=== PATIENT | male | born 1980 | race Caucasian/White ===

== ENCOUNTER 2022-03-03 17:22 | Inpatient (IN) | payer OTHER, SELFPAY ==
[2022-03-03 17:00] VITALS: BP 141/95; PULSE 87; RESP 18; TEMP 37.1; O2SAT 96; BMI 37.3
--- NOTE | 2022-03-03 17:11 | PCM.HP.STD ---
HPI - General General Date of Admission: 03/03/22 Date of Service: 03/03/22 Chief Complaint: Abdominal pain. HPI Narrative The patient is a 42 y/o M w/ PMHx: HTN, HLD, Hx NSTEMI w/ angiographically clean catheterization 06/24/2019 w/ normal EF on ECHO also, Morbid obesity, KAITLIN who presents to the [facility] as direction admission from [facility] ED 03/03/22 with history of onset on day of presentation, started in the AM after going to work, felt fine prior to this, was at work 1-2 hours, and came on over a short period of time, located in the left chest discomfort initially, left lateral with on examination upper epigastric region abdominal pain as well with no associated nausea, emesis, diarrhea. Pain was initially severe, rated constant aching and sharp 6-7/10 with occasional increase to 8 with stabbing, improved with some pain medications. Patient does report that approximately 1 month prior to current presentation and acute work-up he did have a similar episode of epigastric discomfort with nausea, emesis and diarrhea at that time but falling specifically rest and bowel decreased oral intake he seemed to improve but it did take him several days and this is similar but more severe. Discussed symptoms of biliary colic which she denied having over the last several weeks to months. He does report that he has had a weight loss over the last year. Work-up in the OSH ED included VS: T 97, HR 83, RR 16, BP 139/93, 96-97% on RA, 03/03/22 CTPA with no evidence of pulmonary emboli with enlargement the pancreas with peripancreatic fat stranding consistent with acute pancreatitis, high-sensitivity troponin less than 4 with repeat delta troponin also less than 4, high-sensitivity BNP 10, CRP 0.20, CBC with WC 7.5, hemoglobin 16.7, platelets 351 without marked shift, lipase level too elevated to reported and deferred at the OSH ED as sendout lab. The CMP was unable to be ran also secondary to the lipase level. OSH Medications: Morphine 5 mg initially, Zofran 4 mg IV, Protonix 40 mg IV x 1, Dilaudid 2 mg total, 1.5L NS. [facility] Medical History (Updated 03/03/22 @ 17:[address] Yaa Sabillon MD) Essential hypertension Former tobacco use History of non-ST elevation myocardial infarction (NSTEMI) (06/25/19) HLD (hyperlipidemia) Morbid obesity Obstructive sleep apnea Home Medications testosterone 100 mg implant pellet 100 mg subcut ONCE 11/03/20 [History Last Taken Unknown] atorvastatin 10 mg tablet 10 mg PO QHS cholesterol 03/03/22 [History Last Taken 03/02/22 2200] folic acid 1 mg tablet 1 mg PO DAILY 03/03/22 [History Last Taken Unknown] metoprolol succinate 25 mg tablet,extended release 24 hr (Toprol XL) 25 mg PO QHS heart rate 03/03/22 [History Last Taken Unknown] Allergy/AdvReac Type Severity Reaction Status Date / Time No Known Allergies Allergy Unverified 10/27/21 08:57 Family History (Updated 03/03/22 @ 17:[address] Yaa Sabillon MD) Father Heart disease Hypertension Mother Hypertension Surgical History (Updated 03/03/22 @ 17:[address] Yaa Sabillon MD) History of left heart catheterization (06/26/19) No significant past surgical history Social History (Updated 03/03/22 @ 17:[address] Yaa Sabillon MD) household members: other details: Spouse and children x 3. current occupational status: employed Smoking Status: Former smoker how long ago did patient quit smoking: Smoked age [age], weekend social only. alcohol intake: current alcohol intake frequency: a few times a month details: He notes heavier intake in the past in youth. Denies abuse currently. substance use type: does not use ROS ROS Narrative Admission Review of Systems: CONSTITUTIONAL: No weight loss, fever, chills, + weakness or fatigue. HEENT: Eyes: No visual loss, blurred vision, double vision or yellow sclerae. Ears, Nose, Throat: No hearing loss, sneezing, congestion, runny nose or sore throat. SKIN: No rash or itching, lesions, wounds. CARDIOVASCULAR: + chest pain, chest pressure or chest discomfort, No palpitations, edema, orthopnea, syncopal events. RESPIRATORY: No shortness of breath, cough or sputum, wheezing, hemoptysis. GASTROINTESTINAL: + anorexia, abdominal pain, No nausea, vomiting, diarrhea, melena, BRBPR. GENITOURINARY: No dysuria, frequency, urgency or retention. NEUROLOGICAL: No headache, dizziness, syncope, paralysis, ataxia, numbness or tingling in the extremities, focal weakness, change in bowel or bladder control, seizure. MUSCULOSKELETAL: No muscle, back pain, joint pain or stiffness. HEMATOLOGIC: No anemia, bleeding or bruising. LYMPHATICS: No enlarged nodes. No history of splenectomy. PSYCHIATRIC: No history of depression or anxiety. ENDOCRINOLOGIC: No reports of sweating, cold or heat intolerance. No polyuria or polydipsia. ALLERGIES: No history of asthma, hives, eczema or rhinitis. Vital Signs Vital Signs Vital Signs: 03/03/22 17:00 Temperature 98.7 F Temperature Source Temporal Pulse Rate 87 Respiratory Rate 18 Blood Pressure 141/95 H Blood Pressure Mean 110 Blood Pressure Source Monitor Blood Pressure Position Semi-Fowlers Blood Pressure Location Right Arm Pulse Ox 96 Oxygen Delivery Method Room Air Physical Exam Narrative Physical Examination: General: Awake, alert, oriented x 3 and cooperative, seated upright in MS bed, fatigued otherwise no acute distress, notes pain currently 1-2/10 after recent dilaudid at OSH ED. Skin: Normal color, normal turgor, no icterus, no cyanosis. HEENT: AT/NC, EOMI, PERRLA, mildly dry MM, no carotid bruits or JVD noted. Lungs: CTA bilaterally, moderate effort, mild decrease BL bases, no rales, ronchi or wheezing. Heart: Currently regular rate and rhythm; no gallop, rub audible. Abdomen: Soft, obese, tender to palpation as expected in the epigastric region with additionally notable RUQ pain, + rebound noted, distant mildly hyperative bowel sounds, no obvious HSM however evaluation difficult given pain with evaluation. Extremities: No cyanosis, clubbing, or edema. Neurological: Patient awake, alert, oriented x 3, cognitive function intact; pupils equally reactive to light and accommodation, cranial nerves II-XII grossly normal, moving all 4 extremities, no focal deficits, strength mildly to moderately global decrease secondary to acute presentation. Psychiatric: Affect appears fatigued, no acute evidence of depressive or anxiety feelings. Assessment & Plan Assessment/Plan (1) Acute pancreatitis: PLAN: Plan The patient is a 42 y/o M w/ PMHx: Former tobacco use, HTN, HLD, Hx NSTEMI w/ angiographically clean catheterization 06/24/2019 w/ normal EF on ECHO also, Morbid obesity, KAITLIN who presents to the [facility] as direction admission from [facility] ED 03/03/22 with history of onset on day of presentation, started in the AM after going to work, felt fine prior to this, was at work 1-2 hours, and came on over a short period of time, located in the left chest discomfort initially, left lateral with on examination upper epigastric region abdominal pain as well with no associated nausea, emesis, diarrhea during this recent episode. #1. Acute pancreatitis w/ abdominal pain, N/V: Will admit to medical surgical floor as a direct admission, will obtain CMP and lipase upon current presentation as for some reason at outside facility they were not able to obtain, maintain on IVFs, NPO, PPI, IV/po pain control, trend lipase, CMP, requested RUQ US as well as FLP, denies ETOH abuse which was discussed openly. Given RUQ pain on evaluation concern for GB etiology. If GBUS concerning will request Surgery involvement. #2. History NSTEMI: Patient with 06/24/2019 presentation and admission for chest pain with elevated troponins at that time with angiographically normal cardiac catheterization and unremarkable echocardiogram. We will continue aspirin, statin, metoprolol, Lotrel unless CMP for some reason preclude usage of these regimens. #3. Hypertension: Continue home regimen including metoprolol, Lotrel with hold parameters as needed, PRN hydralazine. #4. Hyperlipidemia: We will continue patient home statin therapy. FLP in AM. #5. Morbid Obesity: Weight loss and lifestyle changes encouraged, nutrition consulted. #6. KAITLIN: CPAP q HS. #7. DVT prophylaxis: SCDs, Lovenox. Charges/Coding Visit Charges Inpatient E&M: 03081 Init Hosp L3
--- NOTE | 2022-03-03 17:19 | US_ITS ---
STUDY: ABDOMINAL ULTRASOUND - RIGHT UPPER QUADRANT REASON FOR VISIT: Male, 42 years old Acute pancreatitis, RUQ pain TECHNIQUE: Ultrasound evaluation of the right upper quadrant was performed with real-time and static gay-scale imaging. TECHNICAL QUALITY: Adequate. Pancreas partially obscured by bowel gas. COMPARISON: None. FINDINGS: Liver: The liver measures 21.3 cm. There is increased echogenicity of the liver. The bile ducts are within normal limits. There is hepatic color flow. The direction of portal flow is hepatopetal. There is no demonstrated mass lesion. Gallbladder: Mildly distended measuring 10.1 cm in length The gallbladder wall measures 1.4 mm. There is a negative sonographic Hagan''s sign. There is no pericholecystic fluid. There are no gallstones. Common Bile Duct (C.B.D.): The common bile duct measures 5.4 mm. Pancreas: Not well seen due to bowel gas. The visualized pancreatic head is hypoechoic and mildly heterogeneous, consistent with the clinical history of pancreatitis. No pancreatic ductal dilatation or pancreatic fluid collection identified. Right Kidney: Mildly enlarged right kidney. The right kidney measures 14.1 cm. Normal renal cortexThere is no demonstrated renal mass or cyst. There is no right hydronephrosis. OTHER: No ascites. US/Gallbladder IMPRESSION: Enlarged fatty liver. The visualized pancreatic head shows findings of acute pancreatitis. Mildly distended gallbladder. No gallstones, findings of acute cholecystitis or biliary ductal dilatation. Electronically Signed: Roberto Eaton MD at 4:30 EDT ,
[2022-03-03] MEDS: 0.9% Normal Saline 1,000 ML 999 ML IV (17:38)
[2022-03-03] MEDS: 0.9% Normal Saline 1,000 ML 200 ML IV ×2 (17:44→23:10)
[2022-03-03] MEDS: Ondansetron 4 MG/2 ML Vial IV (17:47)
[2022-03-03] MEDS: Morphine 4 MG/ML Syringe IV ×2 (17:47→23:10)
[2022-03-03] MEDS: Famotidine 200 MG/20 ML MDV 20 MG in 0.9% Normal Saline (Pres. free 8 ML 300 MG IV (18:35)
[2022-03-03 18:55] LABS: AST(SGOT) 6 U/L (15-37); Alanine Aminotransfer ALT/SGPT 45 U/L (16-61); Albumin, Serum 3.5 g/dL (3.2-5.0); Alkaline Phosphatase 116 U/L (45-117); Anion Gap 9 (5-15); BUN 10 mg/dL (7-18); BUN/Creat Ratio 14.2 RATIO (10-20); Calcium,Total 8.5 mg/dL (8.5-10.1); Chloride 102 mmol/L (98-107); Creatinine, Serum 0.71 mg/dL (0.70-1.30); EST Glomerular Filtration Rate 131 mL/min (>60); Est Glom Filt Rate - Afr Amer 159 mL/min (>60); Globulin 3.6 g/dL (2.2-4.2); Glucose 237 mg/dL (74-106); Lipase 1448 U/L (73-393); Potassium 3.5 mmol/L (3.5-5.1); Protein, Total 7.1 g/dL (6.4-8.2); Sodium Level 134 mmol/L (136-145)
[2022-03-03 21:30] VITALS: BP 128/75; PULSE 81; RESP 18; TEMP 37; O2SAT 95
[2022-03-03 22:38] VITALS: PULSE 84; RESP 12; O2SAT 95
[2022-03-03] MEDS: proCHLORPERazine 10 MG/2 ML Vial 5 MG IV (23:15)
[2022-03-04] VITALS (8 sets, daily range): BP systolic 117–135; BP diastolic 66–90; PULSE 78–85; RESP 12–18; TEMP 36.6–37.3; O2SAT 94–97
[2022-03-04] MEDS: 0.9% Normal Saline 1,000 ML 200 ML IV ×4 (04:15→21:41)
[2022-03-04] MEDS: oxyCODONE 5 MG Tablet PO (04:15)
[2022-03-04] MEDS: Acetaminophen 325 MG Tablet 650 MG PO ×2 (04:15→15:48)
[2022-03-04 05:56] LABS: Absolute Lymphocyte Count 1.34 X10^3/uL (0.83-4.51); Absolute Neutrophil Count 6.9 X10^3/uL (2.0-7.7); Basophil# 0.02 X10^3/uL; Basophil% 0.2 % (0-1); Eosinophils% 1.1 % (0-5); Hematocrit 42.2 % (40-54); Hemoglobin 14.5 g/dL (13.0-16.5); Lymphocyte # 1.34 X10^3/ul (0.83-4.51); Lymphocyte % 14.9 % (19-41); Mean Corp Hgb Conc 34.4 g/dL (32-36); Mean Corpuscular Hgb 30.1 pg (27.0-32.0); Mean Corpuscular Volume 87.6 fL (80-94); Mean Platelet Vol. 9.7 fl (6.2-12.0); Monocyte# 0.62 X10^3/uL; Monocyte% 6.9 % (0-10); NRBC Flagged by Analyzer 0 % (0-5); Neutrophil # 6.85 X10^3/uL (2.7-7.7); Neutrophil % 76.3 % (47-70); Platelet Count 254 K/mm3 (150-450); RBC Distribution Width CV 13.1 % (11.6-14.6); RBC Distribution Width SD 41.8 fl (35.1-43.9); Red Blood Count 4.82 M/mm3 (4.6-6.2)
[2022-03-04 06:43] LABS: ALB/GLOB Ratio 0.9 RATIO (0.9-2.4); AST(SGOT) 11 U/L (15-37); Alanine Aminotransfer ALT/SGPT 32 U/L (16-61); Albumin, Serum 3.1 g/dL (3.2-5.0); Alkaline Phosphatase 103 U/L (45-117); Anion Gap 9 (5-15); BUN 9 mg/dL (7-18); BUN/Creat Ratio 13.4 RATIO (10-20); Calcium,Total 8.1 mg/dL (8.5-10.1); Chloride 103 mmol/L (98-107); Creatinine, Serum 0.67 mg/dL (0.70-1.30); EST Glomerular Filtration Rate 139 mL/min (>60); Est Glom Filt Rate - Afr Amer 168 mL/min (>60); Globulin 3.5 g/dL (2.2-4.2); Glucose 234 mg/dL (74-106); Lipase 1095 U/L (73-393); Potassium 3.8 mmol/L (3.5-5.1); Protein, Total 6.6 g/dL (6.4-8.2); Sodium Level 134 mmol/L (136-145)
[2022-03-04 07:48] LABS: Cholesterol 290 mg/dL (200); High Density Lipoprotein 37 mg/dL; Triglycerides 1497 mg/dL
[2022-03-04] MEDS: 0.9% Saline Lock 10 ML Syringe IV ×2 (10:04→21:42)
[2022-03-04] MEDS: Famotidine 200 MG/20 ML MDV 20 MG in 0.9% Normal Saline (Pres. free 8 ML 300 MG IV ×2 (10:04→21:43)
[2022-03-04] MEDS: Enoxaparin 40 MG/0.4 ML Syringe SC (10:07)
--- NOTE | 2022-03-04 11:11 | NURSING ---
Pt walking in chaidez with his .
--- NOTE | 2022-03-04 12:08 | CASEMGMT ---
TIMOTHY NAGY Assessment: Face to Face with pt for initial transition planning/care coordination assessment. RN LILO introduced self and role at [facility], pt voices understanding and consents to assessment. Pt is A/O x4 and answers all questions appropriately at this time. Pt lying in bed in no distress with dtr at bedside. Care providers, pharmacy, and demographics verified/updated. Admitting Dx: acute pancreatitis PCP:MYRIAM Mackey Specialists:fracisco Walker Pharmacy: [facility] Insurance: [employer] Prescription Benefit: yes LW/HPOA: Pt states he has a LW/DPOA and his DPOA is his Magda Lanier. He is aware this is not on file at [facility] and he may bring in to be scanned into his chart. LNOK: Magda Lanier, Living Arrangements: Pt lives with in a two story house with 8-10 steps to enter with a rail on both sides. Pt reports he is I in ADL's and denies concerns at home. Transportation: Pt drives self and denies concerns with transportation. DME/HHC/SNF: Pt has a CPAP at home, denies any further AD. Pt denies hx of HHC or SNF stays. Pt states no concerns with going home at time of dc. Pt was up ambulating independently in the halls. Pt states no further concerns/needs. CM to follow. Advised pt to ask CM if any further question/concerns/needs arise, voices understanding. Pt Goal: Home Plan: Home
--- NOTE | 2022-03-04 14:08 | PN.HOSP_ITS ---
Subjective Subjective Patient reports that his abdomen is still feeling better. Still requiring some IV morphine for pain however. Denies any excessive alcohol use, ultrasound is negative for any signs of gallbladder disease it would be potentiating this. We did review his medications and he is on testosterone. At the time of my dis cussion with him I was awaiting his lipids however I did discuss with him if his lipids are elevated the testosterone could be contributing to this. Objective Data Objective Data Vital Signs: Vital Signs Temp Pulse Resp BP Pulse Ox O2 Del Method FiO2 98.7 F 82 18 117/66 97 Room Air 21 03/04/22 11:28 03/04/22 11:28 03/04/22 11:28 03/04/22 11:28 03/04/22 11:28 03/04/22 11:03/04/22 02:07 Oxygen Delivery Method Room Air Weight: 131.9 kg Body Mass Index (BMI) 37.3 Intake & Output: Intake and Output for Last 24 Hours 03/02/22 03/03/22 03/04/22 23:59 23:59 23:59 Intake Total 3010 / 3010 2049 Output Total 300 / 300 Balance 2710 / 2710 2049 Lab / Micro Data Result Diagrams: 03/04/22 05:22 03/04/22 05:22 Labs: Laboratory Results - last 24 hr 03/03/22 18:03: Sodium 134 L, Potassium 3.5, Chloride 102, Carbon Dioxide 23.0, Anion Gap 9, BUN 10, Creatinine 0.71, Estim Creat Clear Calc 160.80, Est GFR (MDRD) Af Amer 159, Est GFR (MDRD) Non-Af 131, BUN/Creatinine Ratio 14.2, Glucose 237 H, Calcium 8.5, Total Bilirubin 0.50, AST 6 L, ALT 45, Alkaline Phosphatase 116, Total Protein 7.1, Albumin 3.5, Globulin 3.6, Albumin/Globulin Ratio 1.0, Lipase 1448 H 03/04/22 05:22: WBC 9.0, RBC 4.82, Hgb 14.5, Hct 42.2, MCV 87.6, MCH 30.1, MCHC 34.4, RDW Std Deviation 41.8, RDW Coeff of Bia 13.1, Plt Count 254, MPV 9.7, Immature Gran % (Auto) 0.600, Neut % (Auto) 76.3 H, Lymph % (Auto) 14.9 L, [place] % (Auto) 6.9, Eos % (Auto) 1.1, Baso % (Auto) 0.2, Absolute Neuts (auto) 6.9, Absolute Lymphs (auto) 1.34, Nucleated RBC % 0 03/04/22 05:22: Sodium 134 L, Potassium 3.8, Chloride 103, Carbon Dioxide 22.0, Anion Gap 9, BUN 9, Creatinine 0.67 L, Estim Creat Clear Calc 170.40, Est GFR (MDRD) Af Amer 168, Est GFR (MDRD) Non-Af 139, BUN/Creatinine Ratio 13.4, Glucose 234 H, Calcium 8.1 L, Total Bilirubin 0.60, AST 11 L, ALT 32, Alkaline Phosphatase 103, Total Protein 6.6, Albumin 3.1 L, Globulin 3.5, Albumin/Globulin Ratio 0.9, Lipase 1095 H 03/04/22 05:22: Triglycerides 1497 H, Cholesterol 290 H, LDL Cholesterol TNP, VLDL Cholesterol TNP, HDL Cholesterol 37 L Radiography Diagnostic Testing: Radiology Impression Gallbladder Ultrasound 03/03/22 17:19 IMPRESSION: Enlarged fatty liver. The visualized pancreatic head shows findings of acute pancreatitis. Mildly distended gallbladder. No gallstones, findings of acute cholecystitis or biliary ductal dilatation. Electronically Signed: Roberto Eaton MD at 4:30 EDT , Physical Exam Const alert, oriented x3, no apparent distress and well nourished Constitutional Narrative: Obese, middle-aged, white male sitting up in bed, at bedside, patient appears comfortable at this time, nontoxic HEENT head/scalp atraumatic and moist oral mucous membranes HEENT Narrative: Mallampati 3, no thrush Resp normal respiratory effort, no retractions, no use of accessory muscles and clear to auscultation bilaterally Auscultation: Negative for crackles, rales, rhonchi or wheezes Cardio regular rate, regular rhythm, S1 normal heart sound, S2 normal heart sound, no murmurs, no rub, no gallops, no clicks and no JVD GI normal to inspection, nondistended, normoactive bowel sounds and soft to pal pation GI Narrative: Mild tenderness in the right upper quadrant/epigastrium/left upper quadrant Extremity no clubbing, cyanosis or edema Neuro oriented x3, moves all extremities and no focal motor deficits Speech: speech normal Psych affect normal Assessment & Plan Assessment/Plan (1) Acute pancreatitis: (2) Hypertriglyceridemia: PLAN: Plan Acute pancreatitis secondary to hypertriglyceridemia -Pancreatitis is overall mild and improving -No need for plasmapheresis or insulin drip for triglycerides as he is clinically improving without -Continue statin but increase dose to maximize 80 mg nightly -Start fenofibrate 145 mg daily -Hold testosterone and would recommend discontinuation upon discharge as I suspect this is causing lipid elevation -Start clear liquid diet -Continue IV pain medication as needed -If patient continues to clinically improve would recommend diet advancement and possible discharge in the next 24 hours -Patient denies excessive alcohol intake -Ultrasound does not show any significant gallbladder disease Hyperlipidemia/hypertriglyceridemia -Total cholesterol was 290 with an HDL of 37 and a triglyceride level of 1497 -Maximize statin dose to 80 mg nightly -Add fenofibrate 145 mg daily -We will need outpatient cholesterol check in 3 months -Would recommend outpatient liver functions to be performed in 1 to 2 weeks Hypertension -Continue home metoprolol Hepatic steatosis -Recommend management of comorbidities including cholesterol/weight loss/diet changes -Maximize therapy for hyperlipidemia and hypertriglyceridemia as noted above -Follow-up as an outpatient History of NSTEMI -Cardiac catheterization done in 2019 -It appears that it was not microvascular per documentation -Continue beta-aviva -cholesterol treatment as above -Was told by Her 04 in 2019 that he was able to stop aspirin 3 months following that appointment Obstructive sleep apnea -Continue home CPAP Obesity -BMI 37.3 -Recommend weight loss -Complicates treatment, prognosis, outcomes DVT prophylaxis -Lovenox -SCDs CODE STATUS Full code Charges/Coding Visit Charges Inpatient E&M: 39070 Subs Hosp L2
[2022-03-04] MEDS: Fenofibrate 145 MG Tablet PO (15:59)
[2022-03-04 17:22] LABS: Hemoglobin A1c 11.8 % (3.8-5.6)
--- NOTE | 2022-03-04 19:41 | CPS ---
patient brought in home cpap unit.
[2022-03-04] MEDS: Morphine 4 MG/ML Syringe IV (21:42)
[2022-03-04] MEDS: Atorvastatin Calcium 80 MG Tablet PO (21:48)
[2022-03-04] MEDS: Metoprolol(XL)Succ 25 MG Tablet PO (21:48)
[2022-03-04] MEDS: Insulin Lispro 100 UNIT/ML INSULN.PEN SC (21:52)
[2022-03-04 22:15] LABS: Bedside Glucose 199 mg/dL (74-106)
[2022-03-05] MEDS: 0.9% Normal Saline 1,000 ML 200 ML IV ×2 (02:40→06:15)
[2022-03-05 04:25] VITALS: BP 113/75; PULSE 89; RESP 18; TEMP 36.6; O2SAT 96
[2022-03-05] MEDS: Insulin Lispro 100 UNIT/ML INSULN.PEN SC ×2 (06:15→11:30)
--- NOTE | 2022-03-05 06:33 | PCM.PN.HOSP ---
Objective Data Objective Data Vital Signs: Vital Signs Temp Pulse Resp BP Pulse Ox O2 Del Method FiO2 97.9 F 89 18 113/75 96 Room Air 21 03/05/22 04:25 03/05/22 04:25 03/05/22 04:25 03/05/22 04:25 03/05/22 04:25 03/05/22 04:30 03/04/22 02:07 Oxygen Delivery Method Room Air Weight: 299 lb 6.204 oz Body Mass Index (BMI) 37.3 Intake & Output: Intake and Output for Last 24 Hours 03/03/22 03/04/22 03/05/22 23:59 23:59 23:59 Intake Total 3010 / 3010 4270 / 4270 1713.34 / 1713.34 Output Total 300 / 300 Balance 2710 / 2710 4270 / 4270 1713.34 / 1713.34 Lab / Micro Data Result Diagrams: 03/04/22 05:22 03/04/22 05:22 Labs: Laboratory Results - last 24 hr 03/04/22 05:22: Sodium 134 L, Potassium 3.8, Chloride 103, Carbon Dioxide 22.0, Anion Gap 9, BUN 9, Creatinine 0.67 L, Estim Creat Clear Calc 170.40, Est GFR (MDRD) Af Amer 168, Est GFR (MDRD) Non-Af 139, BUN/Creatinine Ratio 13.4, Glucose 234 H, Calcium 8.1 L, Total Bilirubin 0.60, AST 11 L, ALT 32, Alkaline Phosphatase 103, Total Protein 6.6, Albumin 3.1 L, Globulin 3.5, Albumin/Globulin Ratio 0.9, Lipase 1095 H 03/04/22 05:22: Triglycerides 1497 H, Cholesterol 290 H, LDL Cholesterol TNP, VLDL Cholesterol TNP, HDL Cholesterol 37 L 03/04/22 05:22: Hemoglobin A1c 11.8 H 03/04/22 21:46: POC Glucose 199 H Assessment & Plan Assessment/Plan (1) Acute pancreatitis: PLAN: Plan The patient is a 42 y/o M w/ PMHx: Former tobacco use, HTN, HLD, Hx NSTEMI w/ angiographically clean catheterization 06/24/2019 w/ normal EF on ECHO also, Morbid obesity, KAITLIN who presents to the [facility] as direction admission from [facility] ED 03/03/22 with history of onset on day of presentation, started in the AM after going to work, felt fine prior to this, was at work 1-2 hours, and came on over a short period of time, located in the left chest discomfort initially, left lateral with on examination upper epigastric region abdominal pain as well with no associated nausea, emesis, diarrhea during this recent episode. #1. Acute pancreatitis w/ abdominal pain, N/V: Admitted to [facility], presentation lipase 1448 and CMP sodium 134, glucose 237, unremarkable hepatic profile, as were not able to be obtained at ED. Treated with aggressive IVFs, initially NPO but with improvement transitioned to clears->fulls, maintained on famotidine, GBUS obtained as noted RUQ on initial evaluation with enlarged fatty liver with visualization of pancreatic head still demonstrating signs of acute pancreatitis, mildly distended gallbladder but no gallstones or any findings of acute cholecystitis or biliary ductal dilatation. 03/04/2020 2 AM FLP obtained with noted triglycerides 1497, total cholesterol 290, HDL 37 felt likely etiology for patient acute pancreatitis. Patient is on chronic testosterone therapy likely contributing to his underlying fatty liver disease which has been recommended to be discontinued. #2. Hyperlipidemia, uncontrolled with significant hypertriglyceridemia likely contributing to acute presentation #1: FLP as noted above, statin therapy increased to high-dose atorvastatin 80 mg daily in addition to fenofibrate 145 mg p.o. daily which will be continued at discharge with strong recommendation for continued diet lifestyle changes with FLP follow-up with PCP. Recommended strongly also for discontinuation of testosterone therapy is likely contributing. #3. Hyperglycemia with New Onset Diabetes mellitus type II: Admission blood sugars have been elevated, presentation [facility] with glucose 237, repeat 03/04/2020 2-34, hemoglobin A1c obtained and notably elevated 11.8% consistent with new onset diabetes, currently full liquids with ADA parameters, will transition to ADA diet as tolerated, maintained currently on insulin sliding scale with Accu-Cheks, requested nutrition consultation for education and teaching. #4. History NSTEMI: Patient with 06/24/2019 presentation and admission for chest pain with elevated troponins at that time with angiographically normal cardiac catheterization and unremarkable echocardiogram. We will continue aspirin, increase to high dose statin, metoprolol. #5. Hypertension: Continued on patient Toprol-XL 25 mg p.o. nightly, further adjust as needed. PRN IV hydralazine. #6. Obesity: Weight loss and lifestyle changes encouraged, nutrition consulted. #7. KAITLIN: CPAP q HS. #8. DVT prophylaxis: SCDs, Lovenox.
[2022-03-05 06:35] LABS: Bedside Glucose 193 mg/dL (74-106)
[2022-03-05 08:41] VITALS: BP 129/78; PULSE 87; RESP 18; TEMP 36.9; O2SAT 99
[2022-03-05] MEDS: Enoxaparin 40 MG/0.4 ML Syringe SC (08:43)
[2022-03-05] MEDS: Fenofibrate 145 MG Tablet PO (08:44)
[2022-03-05] MEDS: Insulin Glargine-YFGN 100 UNIT/ML Pen 10 UNIT SC (08:44)
[2022-03-05] MEDS: Famotidine 200 MG/20 ML MDV 20 MG in 0.9% Normal Saline (Pres. free 8 ML 300 MG IV (08:50)
[2022-03-05 09:03] LABS: Anion Gap 6 (5-15); BUN 5 mg/dL (7-18); BUN/Creat Ratio 7.2 RATIO (10-20); Calcium,Total 8.7 mg/dL (8.5-10.1); Chloride 106 mmol/L (98-107); Creatinine, Serum 0.69 mg/dL (0.70-1.30); EST Glomerular Filtration Rate 134 mL/min (>60); Est Glom Filt Rate - Afr Amer 162 mL/min (>60); Estimated Creatinine Clearance 165.46 ml/min; Glucose 188 mg/dL (74-106); Lipase 441 U/L (73-393); Potassium 3.6 mmol/L (3.5-5.1); Sodium Level 135 mmol/L (136-145)
--- NOTE | 2022-03-05 11:27 | DCINST_ITS ---
Discharge Instructions Diet Discharge Diet: Low fat / Low cholesterol and 1800 Calorie Control Diet Activity Discharge Activity: Return to Normal Activity May resume sexual activity in: No Restrictions Dressing / Incision Call your doctor if you observe: Fever of 101 or Higher, Numbness or Tingling, Inability to urinate, Shortness of breath, Chest pain, Increased palpitations (irregular heartbeat), Uncontrolled pain and - (Routinely low blood sugars with symptoms or routinely elevated uncontrolled blood sugars should immediately be addressed with your primary care or endocrinology once established.) Follow Up Care Test Results: Test results from this visit will be discussed in further detail at your follow- up appointment, if applicable. Discharge Plan Admission Admit Date/Time: 03/03/22 17:22 Primary Reason for Your Visit: Acute Pancreatitis, Hyperlipidemia/TG, New Onset Diabetes mellitus type II Attending Provider: Yaa Sabillon Primary Care Provider: Arti Parada Consulting Providers: Yaa Sabillon ; Toshia Lawson Instructions Patient Instructions: Triglycerides, All About Cholesterol Control, Diabetes and Heart Disease, Insulin How To Use Where Inject, Oral Medicines for Type 2 Diabetes, Diabetes Food Shop Meals Prep, Diabetes: Sick-Day Plan, Diabetes and Kidney Disease, Diabetes Exercise Starting, Diabetes Low Blood Sugar Ch, Pancreatitis Acute Dc, Diabetes Serving Portion Sizes, Diabetes: Meal Planning, Diabetes Fitness Progress, Blood Sugar Check Steps, Insulin and Type 2 Diabetes, Diabetes and High Blood Pressure Additional Instructions / Restrictions: Admission Diagnosis Review: #1.? Acute pancreatitis: Presentation lipase 1448, unremarkable hepatic profile. GBUS obtained as noted RUQ on initial evaluation with enlarged fatty liver with visualization of pancreatic head still demonstrating signs of acute pancreatitis, mildly distended gallbladder but no gallstones or any findings of acute cholecystitis or biliary ductal dilatation. 03/04/2020 2 AM FLP obtained with noted triglycerides 1497, total cholesterol 290, HDL 37 felt likely etiology for patient acute pancreatitis.?Patient is on chronic testosterone therapy likely contributing to his underlying fatty liver disease which has been recommended to be discontinued. #2.? Hyperlipidemia, uncontrolled with significant hypertriglyceridemia likely contributing to acute presentation #1: FLP as noted above, statin therapy increased to high-dose atorvastatin 80 mg daily in addition to fenofibrate 145 mg p.o. daily which will be continued at discharge with strong recommendation for continued diet lifestyle changes with FLP follow-up with PCP.? Recommended strongly also for discontinuation of testosterone therapy is likely contributing. #3.? Hyperglycemia with New Onset Diabetes mellitus type II: Admission blood sugars elevated, repeat 03/04/2020 234, hemoglobin A1c obtained and notably elevated 11.8% consistent with new onset diabetes. Transitioned to ADA diet, nutrition consulted, requested staff toxicologist education on insulin administration, usage of sliding scale and accu checks. At discharge also added oral medication to be continued and titrated upward slowly as tolerated. Information for local Automated Access Systems Technician also given as a good option to assist in aggressive continued follow-up and management. #4.? History NSTEMI: Patient with 06/24/2019 presentation and admission for chest pain with elevated troponins at that time with angiographically normal cardiac catheterization and unremarkable echocardiogram. We will continue aspirin especially given #2 and #3 for now low dose, increase to high dose statin, added as noted fenofibrate regimen, continued metoprolol. #5.? KAITLIN: Strongly advise strict compliance with CPAP to assist in improved diabetic control, insulin resistance, blood pressure control, weight loss and improvement of daytime activity tolerance. DISCHARGE DIET AND BLOOD SUGAR LOG DIARY: PLEASE KEEP A LOG OF YOUR ORAL INTAKE DAILY AND YOUR BLOOD SUGAR CHECK LEVELS AND THE SPECIFIC TIMES WELL THE SHORT ACTING INSULIN SLIDING SCALE YOU GIVEN YOURSELF TO BRING TO YOUR FOLLOW-UP WITH YOUR PRIMARY CARE AND IF ESTABLISH WITH ENDOCRINOLOGY TO THESE VISITS WELL THIS WILL HELP DRIVE THE COURSE OF YOUR CARE AND ASSIST WITH EARLY MEDICATION/CARE INTERVENTIONS. WHEN YOUR TALK ABOUT YOUR MEALS PLEASE BE SPECIFIC, I.E. WHOLE WHEAT VERSUS WHITE BREAD, QUANTITY AND SO FORTH. Discharge Orders/Prescriptions Prescriptions: New atorvastatin 80 mg Tablet 80 mg PO QHS 30 Days Qty: 30 0RF insulin lispro [Humalog KwikPen Insulin] 100 unit/mL Insulin Pen 1 - 7 unit subcut ACHS 30 Days Qty: 15 2RF Protocol: 3. Sliding Scale Insulin Med Dosing Condition: 150-189 mg/dl = 1 unit Condition: 190-229 mg/dl = 2 units Condition: 230-269 mg/dl = 3 units Condition: 270-309 mg/dl = 4 units Condition: 310-349 mg/dl = 5 units Condition: 350-399 mg/dl = 6 units Condition: 400-449 mg/dl = 7 units Condition: Greater than 449 call physician Protocol Text: - Use for Total Daily Dose of Insulin 37-55 units - Obsese, infected, or steroid patients MEDIUM DOSING ALGORITHIM Rx Instructions: Sliding Scale Insulin Medium Dosin-189 BS=1 u, 190-229 BS=2 u, 230-269 BS=3 u, 270-309 BS=4 u, 310-349 BS=5 u, 350-399 BS=6 u, 400 BS= 7 u fenofibrate nanocrystallized 145 mg Tablet 145 mg PO 0800 30 Days Qty: 30 0RF insulin glargine-yfgn 100 unit/mL (3 mL) Insulin Pen 10 unit subcut BID 30 Days Qty: 6 0RF metformin 500 mg tablet 500 mg PO BID 30 Days Qty: 60 0RF aspirin 81 mg capsule 81 mg PO DAILY 30 Days Qty: 30 0RF Continued metoprolol succinate [Toprol XL] 25 mg tablet extended release 24 hr 25 mg PO QHS Discontinued testosterone 100 mg pellet 100 mg SC ONCE Rx Instructions: as a single dose atorvastatin 10 mg tablet 10 mg PO QHS Referrals / Follow Up: Angelo Hidalgo MD [Med Staff - Courtesy Staff] - (If interested, Dr. Hidalgo is an excellent Automated Access Systems Technician who could assist with your diabetic care. Please request first open visit and also ask to be on her cancellation list.) Arti Parada PA-C [Primary Care Provider] - (Please follow-up with your primary care preferable within 2-3 days of discharge to review new medications, treatment plans of care and assure continued BS trending. Please keep log of all your accu checks sugars, time and meals to bring with you to your visits.) Disposition Disposition (needs filled in before D/C Order can be placed): Home, Self Care
--- NOTE | 2022-03-05 11:32 | PCM.DC.SUM ---
Providers Date of Admission: 03/03/22 Date of Discharge: 03/05/22 Primary Care Physician: Arti Parada PA-C Reason For Visit: ACUTE PANCREATITIS, Hyperlipidemia, New DM. Diagnosis Discharge Diagnosis (1) Acute pancreatitis: Status: Acute Code(s): K85.90 - Acute pancreatitis without necrosis or infection, unspecified Medications at Discharge Home Medications metoprolol succinate 25 mg tablet,extended release 24 hr (Toprol XL) 25 mg PO QHS heart rate 03/03/22 aspirin 81 mg capsule 81 mg PO DAILY 30 days #30 caps 03/05/22 atorvastatin 80 mg tablet 80 mg PO QHS 30 days #30 tabs 03/05/22 fenofibrate nanocrystallized 145 mg tablet 145 mg PO 0800 30 days #30 tabs 03/05/22 insulin glargine-yfgn 100 unit/mL (3 mL) subcutaneous pen 10 unit (0.1 mL) subcut BID 30 days #6 mL 03/05/22 insulin lispro 100 unit/mL subcutaneous pen (Humalog KwikPen (U-100) Insulin) 1 - 7 unit subcut ACHS 30 days #15 mL 03/05/22 metformin 500 mg tablet 500 mg PO BID 30 days #60 tabs 03/05/22 Hospital Course Operations None Procedures None Summary of Care Provided Minutes Spent on Discharge: 45 Hospital Course: ATTENDING PHYSICIAN DISCHARGE NOTE: Discharge Diagnoses: #1.? Acute pancreatitis likely secondary to #2 #2.? Hyperlipidemia, uncontrolled with significant hypertriglyceridemia likely contributing to acute presentation #1 #3.? Hyperglycemia with New Onset Diabetes mellitus type II (HgBA1c 11.8%) #4.? History NSTEMI with non-obstructive normal angiographically appearing coronaries per 06/24/2019 cardiac catheterization and unremarkable echocardiogram #5.? Hypertension #6.? Obesity #7.? KAITLIN on CPAP q HS. Discharge Summary: The patient is a 42 y/o M w/ PMHx: Former tobacco use, HTN, HLD, Hx NSTEMI w/ angiographically clean catheterization 06/24/2019 w/ normal EF on ECHO also, Morbid obesity, KAITLIN who presented to the [facility] as direction admission from [facility] ED 03/03/22 with history of onset on day of presentation, started in the AM after going to work, felt fine prior to this, was at work 1-2 hours, and came on over a short period of time, located in the left chest discomfort initially, left lateral with on examination upper epigastric region abdominal pain as well with no associated nausea, emesis, diarrhea during this recent episode. Admitted to [facility], presentation lipase 1448 and CMP sodium 134, glucose 237, unremarkable hepatic profile, as were not able to be obtained at ED. Treated with aggressive IVFs, initially NPO but with improvement transitioned to clears->fulls->ADA with appropriate toleration of intake, maintained on famotidine IV while initially NPO, GBUS obtained as noted RUQ on initial evaluation with enlarged fatty liver with visualization of pancreatic head still demonstrating signs of acute pancreatitis, mildly distended gallbladder but no gallstones or any findings of acute cholecystitis or biliary ductal dilatation.? 03/04/2020 2 AM FLP obtained with noted triglycerides 1497, total cholesterol 290, HDL 37 felt likely etiology for patient acute pancreatitis.? Patient is on chronic testosterone therapy likely contributing to his underlying fatty liver disease which has been recommended to be discontinued. FLP as noted above, statin therapy increased to high-dose atorvastatin 80 mg daily in addition to fenofibrate 145 mg p.o. daily which will be continued at discharge with strong recommendation for continued diet lifestyle changes with FLP follow-up with PCP.? Admission blood sugars have been elevated, presentation CMP with glucose 237, repeat 03/04/2020 2-34, hemoglobin A1c obtained and notably elevated 11.8% consistent with new onset diabetes, transitioned as noted to ADA diet, maintained currently on insulin sliding scale with Accu-Cheks and low dose BID lantus started with overlapping ISS. Also requested nutrition consultation for education and teaching during his admission. At discharge discussed importance of keeping diet and BS log, continued ISS usage, self administration of his lantus with early PCP follow-up requested and overlap upon discharge with oral low dose metformin to be titrated pending tolerance and trending. Given patient clinical improvement he was discharged to home with PCP early follow-up and information for Endocrinology with strong recommendation for d/c testosterone if able, continued high dose statin, fenofibrate regimen with planned future repeat lipid assessment and BS treatments as noted. Discharge Time: > 35 Minutes DAY OF DISCHARGE PROGRESS NOTE: Subjective: Patient without acute event overnight per self and nursing report. Patient denies fever, chills, nausea, emesis, abdominal pain, chest pain or dyspnea. Patient notes that he is hungry and does have some mild hunger pains but this is nothing like he had with his abdominal pain upon presentation. Discussed at length patient new diabetic diagnosis and plan of care. Again strongly encourage discontinuation of the testosterone if able. Discussed possibility of potentially establishing with endocrinology and information was given. Patient agreeable to discharge to home. Patient will be discharged with follow-up with primary care physician and as noted also information given regarding endocrinology follow-up. Objective: T98.4, heart rate 87, BP 129/70, respiratory rate 18, 99% on room air. Physical Examination: General: awake, alert, oriented x 3 and cooperative, seated upright in the medical surgical bedside chair, no acute distress, notes feeling improved. Skin: normal color, turgor, no icterus, cyanosis. HEENT: AT/NC, EOMI, PERRLA, MMM. Lungs: CTA bilaterally, moderate effort, mild decrease BL bases, no rales, ronchi or wheezing; Heart: Regular rate and rhythm; no gallop, rub audible. Abdomen: soft, obese, no recurrent abdominal discomfort in the right upper quadrant or epigastric or left-sided upper abdominal region, ND, normal BS. Extremities: no cyanosis, clubbing, or edema. Neurological: patient awake, alert, oriented x 3; cognitive function appears intact upon questioning,; pupils equally reactive to light and accomodation; cranial nerves II-XII grossly normal, moving all 4 extremities, strength improved, appropriate, moving with ease. Psychiatric: affect appears normal, understanding of all concerns and discussed at length the plans of care, no acute evidence of depressive or anxiety feelings. Assessment and Plan: Please see hospital summary above. Weight / BMI Weight Weight: 299 lb 6.204 oz Body Mass Index (BMI) 37.3 ABG / Lab / Microbiology Data Result Diagrams: 03/04/22 05:22 03/05/22 05:30 Laboratory: Laboratory Results - last 24 hr 03/04/22 05:22: Hemoglobin A1c 11.8 H 03/04/22 21:46: POC Glucose 199 H 03/05/22 05:30: Sodium 135 L, Potassium 3.6, Chloride 106, Carbon Dioxide 23.0, Anion Gap 6, BUN 5 L, Creatinine 0.69 L, Estim Creat Clear Calc 165.46, Est GFR (MDRD) Af Amer 162, Est GFR (MDRD) Non-Af 134, BUN/Creatinine Ratio 7.2 L, Glucose 188 H, Calcium 8.7, Lipase 441 H 03/05/22 06:14: POC Glucose 193 H D/C Instructions Discharge Diet: Low fat / Low cholesterol and 1800 Calorie Control Diet May resume sexual activity in: No Restrictions Call your doctor if you observe: Fever of 101 or Higher, Numbness or Tingling, Inability to urinate, Shortness of breath, Chest pain, Increased palpitations (irregular heartbeat), Uncontrolled pain and - (Routinely low blood sugars with symptoms or routinely elevated uncontrolled blood sugars should immediately be addressed with your primary care or endocrinology once established.) Meaningful Use Info Meaningful Use Diagnoses (Choose all that apply): None applicable Discharge Plan Admission Admit Date/Time: 03/03/22 17:22 Primary Reason for Your Visit: Acute Pancreatitis, Hyperlipidemia/TG, New Onset Diabetes mellitus type II Attending Provider: Yaa Sabillon Primary Care Provider: Arti Parada Consulting Providers: Yaa Sabillon ; Toshia Lawson Instructions Patient Instructions: Triglycerides, All About Cholesterol Control, Diabetes and Heart Disease, Insulin How To Use Where Inject, Oral Medicines for Type 2 Diabetes, Diabetes Food Shop Meals Prep, Diabetes: Sick-Day Plan, Diabetes and Kidney Disease, Diabetes Exercise Starting, Diabetes Low Blood Sugar Ch, Pancreatitis Acute Dc, Diabetes Serving Portion Sizes, Diabetes: Meal Planning, Diabetes Fitness Progress, Blood Sugar Check Steps, Insulin and Type 2 Diabetes, Diabetes and High Blood Pressure Additional Instructions / Restrictions: Admission Diagnosis Review: #1.? Acute pancreatitis: Presentation lipase 1448, unremarkable hepatic profile. GBUS obtained as noted RUQ on initial evaluation with enlarged fatty liver with visualization of pancreatic head still demonstrating signs of acute pancreatitis, mildly distended gallbladder but no gallstones or any findings of acute cholecystitis or biliary ductal dilatation. 03/04/2020 2 AM FLP obtained with noted triglycerides 1497, total cholesterol 290, HDL 37 felt likely etiology for patient acute pancreatitis.?Patient is on chronic testosterone therapy likely contributing to his underlying fatty liver disease which has been recommended to be discontinued. #2.? Hyperlipidemia, uncontrolled with significant hypertriglyceridemia likely contributing to acute presentation #1: FLP as noted above, statin therapy increased to high-dose atorvastatin 80 mg daily in addition to fenofibrate 145 mg p.o. daily which will be continued at discharge with strong recommendation for continued diet lifestyle changes with FLP follow-up with PCP.? Recommended strongly also for discontinuation of testosterone therapy is likely contributing. #3.? Hyperglycemia with New Onset Diabetes mellitus type II: Admission blood sugars elevated, repeat 03/04/2020 234, hemoglobin A1c obtained and notably elevated 11.8% consistent with new onset diabetes. Transitioned to ADA diet, nutrition consulted, requested staff trainer education on insulin administration, usage of sliding scale and accu checks. At discharge also added oral medication to be continued and titrated upward slowly as tolerated. Information for local Last Model Department Supervisor also given as a good option to assist in aggressive continued follow-up and management. #4.? History NSTEMI: Patient with 06/24/2019 presentation and admission for chest pain with elevated troponins at that time with angiographically normal cardiac catheterization and unremarkable echocardiogram. We will continue aspirin especially given #2 and #3 for now low dose, increase to high dose statin, added as noted fenofibrate regimen, continued metoprolol. #5.? KAITLIN: Strongly advise strict compliance with CPAP to assist in improved diabetic control, insulin resistance, blood pressure control, weight loss and improvement of daytime activity tolerance. DISCHARGE DIET AND BLOOD SUGAR LOG DIARY: PLEASE KEEP A LOG OF YOUR ORAL INTAKE DAILY AND YOUR BLOOD SUGAR CHECK LEVELS AND THE SPECIFIC TIMES WELL THE SHORT ACTING INSULIN SLIDING SCALE YOU GIVEN YOURSELF TO BRING TO YOUR FOLLOW-UP WITH YOUR PRIMARY CARE AND IF ESTABLISH WITH ENDOCRINOLOGY TO THESE VISITS WELL THIS WILL HELP DRIVE THE COURSE OF YOUR CARE AND ASSIST WITH EARLY MEDICATION/CARE INTERVENTIONS. WHEN YOUR TALK ABOUT YOUR MEALS PLEASE BE SPECIFIC, I.E. WHOLE WHEAT VERSUS WHITE BREAD, QUANTITY AND SO FORTH. Discharge Orders/Prescriptions Prescriptions: New atorvastatin 80 mg Tablet 80 mg PO QHS 30 Days Qty: 30 0RF insulin lispro [Humalog KwikPen Insulin] 100 unit/mL Insulin Pen 1 - 7 unit subcut ACHS 30 Days Qty: 15 2RF Protocol: 3. Sliding Scale Insulin Med Dosing Condition: 150-189 mg/dl = 1 unit Condition: 190-229 mg/dl = 2 units Condition: 230-269 mg/dl = 3 units Condition: 270-309 mg/dl = 4 units Condition: 310-349 mg/dl = 5 units Condition: 350-399 mg/dl = 6 units Condition: 400-449 mg/dl = 7 units Condition: Greater than 449 call physician Protocol Text: - Use for Total Daily Dose of Insulin 37-55 units - Obsese, infected, or steroid patients MEDIUM DOSING ALGORITHIM Rx Instructions: Sliding Scale Insulin Medium Dosin-189 BS=1 u, 190-229 BS=2 u, 230-269 BS=3 u, 270-309 BS=4 u, 310-349 BS=5 u, 350-399 BS=6 u, 400 BS= 7 u fenofibrate nanocrystallized 145 mg Tablet 145 mg PO 0800 30 Days Qty: 30 0RF insulin glargine-yfgn 100 unit/mL (3 mL) Insulin Pen 10 unit subcut BID 30 Days Qty: 6 0RF metformin 500 mg tablet 500 mg PO BID 30 Days Qty: 60 0RF aspirin 81 mg capsule 81 mg PO DAILY 30 Days Qty: 30 0RF Continued metoprolol succinate [Toprol XL] 25 mg tablet extended release 24 hr 25 mg PO QHS Discontinued testosterone 100 mg pellet 100 mg SC ONCE Rx Instructions: as a single dose atorvastatin 10 mg tablet 10 mg PO QHS Referrals / Follow Up: Angelo Hidalgo MD [Med Staff - Courtesy Staff] - (If interested, Dr. Hidalgo is an excellent Last Model Department Supervisor who could assist with your diabetic care. Please request first open visit and also ask to be on her cancellation list.) Arti Parada PA-C [Primary Care Provider] - (Please follow-up with your primary care preferable within 2-3 days of discharge to review new medications, treatment plans of care and assure continued BS trending. Please keep log of all your accu checks sugars, time and meals to bring with you to your visits.) Disposition Disposition (needs filled in before D/C Order can be placed): Home, Self Care Charges/Coding Visit Charges Inpatient E&M: 36874 Disch Hosp
[2022-03-05 12:01] LABS: Bedside Glucose 208 mg/dL (74-106)
== END 2022-03-05 13:25 | disposition home or self-care (01) | DRG 642 ==
PROVIDERS: Internal Medicine; Admitting Provider Family Medicine; PCP Family Medicine; Visit Provider Family Medicine
DX: E78.1 Pure hyperglyceridemia (principal); K85.90 Acute pancreatitis without necrosis or infection, unspecified; K76.0 Fatty (change of) liver, not elsewhere classified; E11.65 Type 2 diabetes mellitus with hyperglycemia; Z79.4 Long term (current) use of insulin; E66.01 Morbid (severe) obesity due to excess calories; E78.5 Hyperlipidemia, unspecified; I10 Essential (primary) hypertension; G47.33 Obstructive sleep apnea (adult) (pediatric); I25.2 Old myocardial infarction; Z79.82 Long term (current) use of aspirin; Z79.890 Hormone replacement therapy; Z79.899 Other long term (current) drug therapy; Z87.891 Personal history of nicotine dependence; Z68.37 Body mass index [BMI] 37.0-37.9, adult
CPT/HCPCS: 36415; 76705; 80048; 80053; 80061; 82962; 83036; 83690; 85025; 94660; 97802; J7030; A4216; J2405; J3490

== ENCOUNTER → 2022-08-08 | Outpatient (CLI) | payer OTHER, SELFPAY ==
--- NOTE | 2022-08-08 12:28 | US_ITS ---
INDICATION: ENLARGED LYMPH NODES EXAMINATION: Ultrasound US Thyroid (eg thyroid, parathyroid, parotid) TECHNIQUE: Garcia scale and color doppler imaging was performed of the thyroid gland. COMPARISON: None. FINDINGS: RIGHT THYROID LOBE: 5.2 x 2.5 x 2.2 cm. Homogeneous echotexture with normal vascularity. [No thyroid nodules are present. LEFT THYROID LOBE: 5.3 x 2.5 x 1.6 cm. Homogeneous echotexture with normal vascularity. [Tiny solid nodule in the lower pole measuring 5 x 5 x 3 mm demonstrating irregular margins and curly nodular vascularization ISTHMUS: 3 mm. No thyroid nodules are present. There are 4 lymph nodes on the right 2 of which are adjacent to the right submandibular gland the largest measuring 10.2 x 1.3 x 2.8 cm and 1.6 x 1.1 x 2.3 cm. There are 2 lymph nodes on the left measuring 1.3 x 0.6 x .5 and 2 x 1.3 x 0.8 cm adjacent to the left submandibular gland US/Thyroid IMPRESSION: Tiny solid nodule left lobe of the thyroid is likely benign however would recommend 6 month follow-up Bilateral adenopathy of uncertain etiology and clinical significance Clinical correlation recommended Electronically Signed: Iraj Garcia MD at 17:49 EST Reading Location ID and State: [address] [place] [address] , Service support ,
== END | disposition home or self-care (01) ==
PROVIDERS: PCP Family Medicine; Referring Provider Otolaryngology; Visit Provider Otolaryngology
DX: R59.0 Localized enlarged lymph nodes (principal)
CPT/HCPCS: 76536

== ENCOUNTER → 2025-03-06 | Outpatient (CLI) | payer OTHER, SELFPAY ==
--- OUTSIDE RECORDS SUMMARY | 2025-03-06 06:08 | XMS RPT_ITS | CCD ---
Author Organization [facility] Care Team Providers Care Track Fitter Name Role Phone JAYLA WALTERS Unavailable Unavailabl e SOCORRO STANLEY Unavailable Unavailable JAYLA WALTERS Unavailable Unavailabl e Unavailable Primary Care Provider Unavailconcepción e Tal PA, PA-C Arti Primary Care Provider Dr. Yaa Sabillon Admit Provider [phone] Yaa Sabillon Attending Provider [phone] Dr. Yaa Sabillon Other Provider Dr. Toshia Lawson Attending Provider [phone] Toshia Lawson Other Provider [place] PA-C, ODEN Primary Care Physician [phone] DR KACI BILLINGSLEY MD Attending Unavailable [place] PA-C, ARTI Primary Care Unavailable DR KACI BILLINGSLEY MD Attending Unavailable [place] PA-C, ARTI Primary Care Unavailable JUAN HUITRON MD Attending Unavailable [place] PA-C, ARTI Primary Care Unavailable JUAN HUITRON MD Attending Unavailable [place] PA-C, ARTI Primary Care Unavailable DR KACI BILLINGSLEY MD Attending Unavailable [place] PA-C, ARTI Primary Care Unavailable DR KACI BILLINGSLEY MD Attending Unavailable [place] PA-C, ARTI Primary Care Unavailable DR KACI BILLINGSLEY MD Attending Unavailable [place] PA-C, ARTI Primary Care Unavailable DR KACI BILLINGSLEY MD Attending Unavailable [place] PA-C, ARTI Primary Care Unavailable [place], ARTI Consulting Unavailable [place], ARTI Attending Unavailable [place], ARTI Admitting Unavailable [place], ODEN Primary Care Unavailable EDGAR MARTINEZ Referring Unavailable PROVIDER, UNKNOWN Consulting Unavailable [place], ARTI Consulting Unavailable [place], ARTI Attending Unavailable [place], ARTI Admitting Unavailable [place], ARTI Primary Care Unavailable PROVIDER, UNKNOWN Consulting Unavailable CLARY MAZA MD Attending Unavailable [place], ARTI Consulting Unavailable CLARY MAZA MD Admitting Unavailable CLARY MAZA MD Primary Care Unavailable PROVIDER, UNKNOWN Consulting Unavailable CLARY MAZA MD Attending Unavailable [place], ARTI Consulting Unavailable SHAUNNA, CLARY ROLDAN Admitting Unavailable SHAUNNA, CLARY ROLDAN Primary Care Unavailable PROVIDER, UNKNOWN Consulting Unavailable [place], ARTI Consulting Unavailable CLARY MAZA MD Admitting Unavailable CLARY MAZA MD Primary Care Unavailable SHAUNNA, CLARY ROLDAN Attending Unavailable PROVIDER, UNKNOWN Consulting Unavailable SOMPLE, EDGAR ROLDAN Primary [facility] Attending Unavailable [place], ARTI Consulting Unavailable [place], ARTI Referring Unavailable SOMPLE, EDGAR ROLDAN Admitting Unavailable PROVIDER, UNKNOWN Consulting Unavailable [place], ARTI Consulting Unavailable ROOF, EDGAR Attending Unavailable ROOF, EDGAR Admitting Unavailable ROOF, EDGAR Primary Care Unavailable PROVIDER, UNKNOWN Consulting Unavailable [place], ARTI Consulting Unavailable ROOF, EDGAR Attending Unavailable ROOF, EDGAR Admitting Unavailable ROOF, EDGAR Primary Care Unavailable PROVIDER, UNKNOWN Consulting Unavailable CLARY MAZA MD Primary Care Unavailable CLARY MAZA MD Admitting Unavailable [place], ARTI Consulting Unavailable SHAUNNA, CLARY ROLDAN Attending Unavailable PROVIDER, UNKNOWN Consulting Unavailable [facility], Edgar Moser Attending Unavailable [place] PA, Arti Primary Care Unavailable [place] PA, Arti Referring Unavailable [facility] INSPECTOREdgar Attending Unavailable [place] PA, Arti Primary Care Unavailable [place] PA, Arti Referring Unavailable [facility] INSPECTOREdgar Referring Unavailable [place] PA, Arti Primary Care Unavailable [facility] [employer] INS[facility], Edgar Moser Attending Unavailable Allergies Allergy Classification Reported Allergen(s) Allergy Type Date of Onset Reaction(s) Facility (1 source) coconut allergenic extract Drug Allergy 9 [place], [place] (1 source) seasonal enviromental Allergy to substance Nasal congestion (finding) [facility] (1 source) [id number] Reductase Inhibitor Drug allergy (disorder) 5 [facility] Repository Medications Current Medications Medication Drug Class(es) Dates Sig (Normalized) Sig (Original) acetaminophen 325 mg oral tablet (1 source) Start: 06-25-2019 acetaminophen (TYLENOL) tablet 650 mg amLODIPine 5 mg oral tablet (2 sources) Dihydropyridine Calcium Channel Sandy Start: 09-08-2022 amLODIPine 5 mg oral tablet Dose : 5 mg = 1 tab(s), Oral, qDay, # 30 tab(s), 0 Refill(s) Start Date: 09/08/22 Status: Ordered Start: 06-24-2019 amLODIPine (NO RVASC) tablet 10 mg aspirin 81 mg chewable tablet (10 sources) Platelet Aggregation Inhibitor, Nonsteroidal Anti-inflammatory Drug Start: 07-06-2022 aspirin 81 mg ora l tablet, chewable Dose : 81 mg = 1 tab(s), Oral, qDayM, # 30 tab(s), 0 Refill(s), Pharmacy: [id number], 188, cm, 07/03/22 10:43:00 EST, Height Start Date: 07/06/22 Status: Ordered Start: 03-05-2022 take 81 mg by mouth once daily Aspirin Active 81 MG PO DAILY March 04, 2022 11:00pm Start: 07-09-2019 End: 10-31-2019 Aspirin (Adult Low Dose Aspi rin) 81 mg tablet,delayed release (DR/EC) Discontinued 81 MG PO DAILY July 09, 2019 12:00am October 31, 2019 1:13pm Start: 06-26-2019 take 1 tablet by edith th once daily aspirin 81 MG EC tablet Take 1 tablet by mouth daily 30 tablet 3 06/26/2019 Active Start: 06-26-2019 End: 06-25-2019 take 1 tablet by mouth once daily aspirin 81 MG EC tablet Take 1 tablet by mouth daily 30 tablet 3 06/26/2019 06/25/2019 Discontinued Start: 06-24-2019 aspirin tablet 325 mg Start: 06-24-2019 take 81 mg by mouth once daily 81 mg, Oral, DAILY, First dose on 06/24/19 at 1245 Do not crush or break. atorvastatin 80 mg oral tablet (9 sources) HMG-CoA Reductase Inhibitor Start: 11-18-2022 atorvastatin 80 mg oral tablet 0 Refill(s) Start Date: 11/18/22 Status: Ordered Start: 03-05-2022 take 80 mg by mouth at bedtime Atorvastatin Active 80 MG PO AT BEDTIME March 04, 2022 11:00pm Start: 10-27-2021 End: 03-05-2022 take 10 mg by mouth at bedtime Atorvastatin Discontinu ed 10 MG PO AT BEDTIME March 03, 2022 4:07pm March 05, 2022 10:10am empagliflozin 25 mg oral tablet (2 sources) Sodium-Glucose Cotransporter 2 Inhibitor Start: 07-03-2022 Jardiance 25 mg oral tablet Dose : 25 mg = 1 tab(s), Oral, qAM, 0 Refill(s) Start Date: 07/03/22 Status: Ordered 0.4 ml enoxaparin sodium 100 mg/ml prefilled syringe (1 source) Low Molecular Weight Heparin Start: 06-24-2019 inject 40 mg by subcutaneous injection once daily 40 mg, Subcutaneous, DAILY, First dose on Mon06/24/19 at 1245 ergocalciferol 1.25 mg oral capsule (6 sources) Provitamin D2 Compound Start: 11-18-2022 ergocalciferol 50,000 intl units (1.25 mg) oral capsule 0 Refill(s) Start Date: 11/18/22 Status: Ordered Start: 10-31-2019 End: 10-27-2021 take 1250 ug by mouth every week Ergocalciferol (Vitamin D2) Discontinued 1250 MCG PO EVERY WEEK October 30, 2019 11:00pm October 27, 2021 7:58am Start: 07-09-2019 End: 10-31-2019 take 1 tablet by mouth once daily ergocalciferol (vitamin D2) 2,000 unit tablet Discontinued 2000 UNIT PO DAILY July 09, 2019 12:00am October 31, 2019 1:14pm take 1250 mg by mout h once daily Ergocalciferol (VITAMIN D2 PO) Take 1,250 mg by mouth daily 0 Active fenofibrate 145 mg oral tablet (4 sources) Peroxisome Proliferator Receptor alpha Agonist Start: 06-19-2023 fenofibrate 145 mg oral tablet Dose : 145 mg = 1 tab(s), Oral, qDay, # 30 tab(s), 0 Refill(s) Start Date: 06/19/23 Status: Ordered Start: 07-07-2022 End: 08-06-2022 fenofibrate 48 mg oral table t Dose : 48 mg = 1 tab(s), Oral, qDayM, # 30 tab(s), 0 Refill(s), Pharmacy: [id number], 188, cm, 07/03/22 10:43:00 EST, Height Start Date: 07/07/22 Stop Date: 08/06/22 Status: Ordered Start: 03-05-2022 Fenofibrate Na nocrystallized Active 145 MG PO 0800 March 04, 2022 11:00pm Insulin Glargine-Yfgn (2 sources) Start: 03-05-2022 Insulin Glargi ne-Yfgn Active 10 UNIT SC TWICE A DAY 01 20March 04, 2022 11:00pm Start: 03-05-2022 Insulin Glargi ne-Yfgn Active 10 UNIT SC TWICE A DAY 01 20March 05, 2022 12:00am 3 ml insulin lispro 100 unt/ml pen injector (2 sources) Insulin Analog Start: 03-05-2022 Insulin Lispro (Humalog Kwikpen Insulin) 100 unit/mL Insulin Pen Active 1 - 7 UNIT SC BEFORE MEALS AND AT BEDTIME March 04, 2022 11:00pm Sliding Scale Insulin Medium Dosin-189 BS=1 u, 190-229 BS=2 u, 230-269 BS=3 u, 270-309 BS=4 u, 310-349 BS=5 u, 350-399 BS=6 u, 400 BS= 7 u magnesium hydroxide 80 mg/ml oral suspension (1 source) Start: 06-25-2019 magnesium hydr oxide (MILK OF MAGNESIA) 400 MG/5ML suspension 30 mL metFORMIN hydrochloride 500 mg oral tablet (4 sources) Biguanide Start: 03-05-2022 MetFORMIN (Eqv-Glumetza) 500 mg oral tablet, EXTENDED RELEASE Dose : 1,000 mg = 2 tab(s), Oral, BID, # 30 tab(s), 0 Refill(s) Start Date: 07/03/22 Status: Ordered 24 hr metoprolol succinate 25 mg extended release oral tablet (13 sources) beta-Adrenergic Sandy Start: 03-03-2022 metoprolol succinate 25 mg oral TABLET extended release Dose : 25 mg = 1 tab(s), Oral, qDay, Do not crush or chew (controlled release), # 30 tab(s), 0 Refill(s) Start Date: 07/03/22 Status: Ordered Start: 07-10-2019 End: 03-03-2022 take 1 tablet by mouth once daily Metoprolol Succinate (Toprol Xl) 25 mg tablet extended release 24 hr Discontinued 25 MG PO DAILY 90 October 27, 2021 8:38am March 03, 2022 4:08pm Start: 07-09-2019 End: 07-10-2019 take 25 mg by mouth twice daily Metoprolol Tartrate Di scontinued 25 MG PO TWICE A DAY July 09, 2019 12:00am July 10, 2019 1:47pm Start: 06-24-2019 End: 06-25-2019 take 1 tablet by mouth twice daily metoprolol tartrate (LOPRESSOR) 25 MG tablet Take 1 tablet by mouth 2 times daily 60 tablet 3 06/25/2019 06/25/2019 Discontinued 1 ml morphine sulfate 4 mg/ml cartridge (1 source) Opioid Agonist Start: 06-24-2019 take 1 mg by mouth every four hours as needed for pain 1 mg, Intravenous, EVERY 4 HOURS PRN, Pain Moderate (4-6), Pain Severe (7-10), Starting 06/24/19 at 1223 If oral and IV narcotics ordered, use oral first and only use IV if oral is ineffective or cannot take oral. Do Not give oral and IV within 1 hour of each other unless specifically ordered. nitroglycerin 0.4 mg sublingual tablet (1 source) Nitrate Vasodilator Start: 06-24-2019 0.4 mg, Sublingual, EVERY 5 MIN PRN, Chest pain, Starting 06/24/[address] 1 tablet under tongue upon chest pain, wait 5 minutes and may repeat up to 3 doses in 15 minutes. Do not crush or break. Substituted for nitroGLYCERIN SL Tab 0.3 mg (NITROSTAT). omega-3 acid ethyl esters (penitentiary) 1000 mg oral capsule (1 source) take 1 capsule by mouth once daily [place]-3 1000 MG CAPS Take 1,000 mg by mouth daily 0 Active 2 ml ondansetron 2 mg/ml injection (1 source) Serotonin-3 Receptor Antagonist Start: 06-24-2019 4 mg, Intravenous, EVERY 6 HOURS PRN, Nausea, Vomiting, Starting 06/24/19 at 1223 pantoprazole 40 mg delayed release oral tablet (1 source) Proton Pump Inhibitor Start: 06-25-2019 take 40 mg by mouth once daily before breakfast 40 mg, Oral, DAILY BEFORE BREAKFAST, First dose on Mon06/25/19 at 0700 Do not crush or break. perflutren lipid microspheres (DEFINITY) injection 1.65 mg (1 source) Start: 06-25-2019 End: 06-28-2019 perflutren lipid microspheres (DEFINITY) injection 1.65 mg 3 ml sodium chloride 9 mg/ml injection (6 sources) Start: 06-24-2019 0.9 % sodium chloride infusion Start: 06-24-2019 End: 06-28-2019 sodium chloride flush 0.9 % injection 10 mL vitamin b 12 0.5 mg oral tablet (1 source) Vitamin B12 take 1 tablet by mouth once daily vitamin B-12 (CYANOCOBALAMIN) 500 MCG tablet Take 500 mcg by mouth daily 0 Active Completed/Discontinued Medications Medication Drug Class(es) Dates Sig (Normalized) Sig (Original) amLODIPine 10 mg / benazepril hydrochloride 40 mg oral capsule (3 sources) Dihydropyridine Calcium Channel Sandy, Angiotensin Converting Enzyme Inhibitor Start: 07-09-2019 End: 10-27-2021 take 1 capsule by mouth once daily Amlodipine-Benaze pril Discontinued 1 CAP PO DAILY July 09, 2019 12:00am October 27, 2021 7:58am take 1 capsule by mouth once ramon ly amLODIPine-benazepril (LOTREL) 10-40 MG per capsule Take 1 capsule by mouth daily 0 Active folic acid 1 mg oral tablet (4 sources) Start: 07-09-2019 End: 10-27-2021 take 1 mg by mouth once daily Folic Acid Discontinued 1 MG PO DAILY July 09, 2019 12:00am October 27, 2021 7:58am Start: 06-24-2019 take 1 mg by mouth once daily 1 mg, Oral, DAILY, First dose on Mon06/24/19 at 1245 folic acid 0.4 mg / vitamin b12 0.5 mg oral tablet (2 sources) Vitamin B12 Start: 07-09-2019 End: 10-27-2021 take 1 tablet by mouth once daily Vitamin H11-Akgmh Acid Discontinued 1 TABLET PO DAILY July 09, 2019 12:00am October 27, 2021 7:58am administer with a meal [place]-3 Fatty Acids (2 sources) Start: 07-09-2019 End: 10-27-2021 take 1000 mg by mouth once daily [place]-3 Fatty Acids Discontinued 1000 MG PO DAILY July 09, 2019 12:00am October 27, 2021 7:58am Start: 07-09-2019 End: 10-27-2021 take 1000 mg by mouth once daily [place]-3 Fatty Acids Discontinued 1000 MG PO DAILY July 09, 2019 1:00am October 27, 2021 8:58am testosterone 100 mg drug implant (2 sources) Androgen Start: 11-03-2020 End: 03-05-2022 Testosterone Discontinued 100 MG SC ONCE November 02, 2020 11:00pm March 05, 2022 10:10am as a single dose Problems Active Problems Problem Classification Problem Date Documented Da te Episodic/Chronic Coronary atherosclerosis and other heart disease (3 sources) History of non-ST segment elevation myocardial infarction; Translations: [Old myocardial infarction] Onset: 06-25-2019 11-03-2020 Chronic Disorders of lipid metabolism (5 sources) Hypertriglyceridemi a; Translations: [Pure hyperglyceridemia] Onset: 03-14-2024 Chronic Essential hypertension (3 sources) Essential hypertension; Translations: [Essential (primary) hypertension] Onset: 03-14-2024 07-09-2019 Chronic Malaise and fatigue (2 sources) Other fatigue; Translations: [Other fatigue] Onset: 09-12-2024 Episodic Nonspecific chest pain (1 source) Chest pain, unspecified; Translations: [Chest pain, unspecified] Onset: 02-24-2025 Episodic Other lower respiratory disease (2 sources) Shortness of breath; Translations: [Shortness of breath] Onset: 03-14-2024 Episodic Pancreatic disorders (not diabetes) (3 sources) Acute pancreatitis; Translations: [Acute pancreatitis without necrosis or infection, unspecified] Episodic Syncope (1 source) Syncope and collapse; Translations: [Syncope and collapse] Onset: 07-03-2022 Episodic Unclassified (1 source) Unknown / UNK(Unknown) Onset: 07-04-2018 Unclassified (1 source) Protein level - finding; Translations: [Elevated troponin] Onset: 06-24-2019 06-24-2019 Past or Other Problems Problem Classification Problem Date Documented Da te Episodic/Chronic Allergic reactions (1 source) Anaphylactic shock, unspecified, initial encounter; Translations: [Anaphylactic shock, unspecified, initial encounter] Onset: 01-19-2024 Episodic Cardiac dysrhythmias (1 source) Palpitations; Translations: [Palpitations] Onset: 03-14-2024 Episodic Coronary atherosclerosis and other heart disease (1 source) Presence of aortocoronary bypass graft; Translations: [Presence of aortocoronary bypass graft] Onset: 01-17-2024 Episodic E Codes: Adverse effects of medical drugs (4 sources) Adverse effect of other drugs, medicaments and biological substances, initial encounter; Translations: [Adverse effect of beta-adrenoreceptor antagonists, initial encounter] Onset: 01-17-2024 Episodic Lymphadenitis (4 sources) Generalized enlarged lymph nodes; Translations: [Localized enlarged lymph nodes] Onset: 10-08-2022 Episodic Other aftercare (1 source) Other intermediate manager (current) drug therapy; Translations: [Other snf (current) drug therapy] Onset: 04-25-2024 Episodic Other liver diseases (2 sources) Abnormal levels of other serum enzymes; Translations: [Abnormal levels of other serum enzymes] Onset: 03-14-2024 Episodic Unclassified (1 source) FROI Onset: 07-04-2018 Results Test Name Value Interpretation Reference Range Facility BMP with eGFRon 12-27-2024 AGE 44 years Normal [facility] Comment on above: Performed By: #### 2 [id number] #### [place] [id number] Anion gap [Moles/Vol] 13 mmol/L Normal 10 - 20 [facility] Comment on above: Performed By: #### 2 [id number] #### [facility],[address] [place], [place] [id number] BMP with eGFR Normal [facility] Comment on above: Result Comment: BASI C METABOLIC PANEL Performed By: #### 2 [id number] #### [facility],[address] [place] [address]40 Calcium [Mass/Vol] 8.2 mg/dL Low 8.5 - 10.1 [facility] Comment on above: Performed By: #### 2 [id number] #### [facility],[address] [place] [address] 65929 Chloride [Moles/Vol] 104 mmol/L Normal 98 - 107 [facility] Comment on above: Performed By: #### 2 [id number] #### [facility],[address] [place] [address] 55116 CO2 [Moles/Vol] 24.6 mmol/L Normal 21.0 - 32.0 [facility] Comment on above: Performed By: #### 2 [id number] #### [facility],[address] [place] [address] 52043 Creatinine [Mass/Vol] 0.90 mg/dL Normal 0.70 - 1.30 [facility] Comment on above: Performed By: #### 2 [id number] #### [facility],[address] [place] [address] 24073 GFR/1.73 sq M.predicted among non-blacks MDRD (S/P/Bld) [Vol rate/Area] mL/min/{1.73_m2} Normal 60 - 999 [facility] Comment on above: Performed By: #### 2 [id number] #### [facility],[address] [place] [address] 92749 Result Comment: ACCO RDING TO THE NATIONAL KIDNEY DISEASE EDUCATION PROGRAM(NKDE), A NORMAL eGFR IS A VALUE GREATER THAN OR EQUAL TO 60 ML/MIN/1.73 SQ METERS. CHRONIC KIDNEY DISEASE: <60mL/MIN/1.73 SQ METERS KIDNEY FAILURE: <15mL/MIN/1.73 SQ METERS THIS TEST SHOULD ONLY BE USED FOR PATIENTS 18 YEARS OF AGE AND OLDER. Glucose [Mass/Vol] 126 mg/dL High 74 - 106 [facility] Comment on above: Performed By: #### 2 [id number] #### [facility],[address] [place] [address] 86833 Potassium [Moles/Vol] 3.8 mmol/L Normal 3.5 - 5.1 [facility] Comment on above: Performed By: #### 2 12191 #### [facility],[address] [place] [address] 09594 Sodium [Moles/Vol] 138 mmol/L Normal 136 - 145 [facility] Comment on above: Performed By: #### 2 [id number] #### [facility],[address] [place] [address] 50132 Urea nitrogen [Mass/Vol] 15 mg/dL Normal 7 - 18 [facility] Comment on above: Performed By: #### 2 11794 #### [facility],[address] [place], [place] [id number] HEMOGLOBIN A1C (POM)on 12-27 Glucose [Mass/Vol] 131.2 mg/dL High 0.0 - 0.0 [facility] Comment on above: Result Comment: BLDo HEMOGLOBIN A1C REFERENCE RANGESBLDo Suggested Diagnosis HbA1c(%) HbA1C (mmol/mol Diabetic >/=6.5 >/=48 Prediabetes 5.7 - 6.4 39 - 47 Normal <5.7 <39 Performed By: #### 2 [id number] #### [facility],[address] [place], [place] [id number] HbA1c (Bld) [Mass fraction] 6.2 % Normal 0.0 - 6.5 [facility] Comment on above: Performed By: #### 2 95437 #### [facility],[address] [place] [address] 24888 SGOT (AST)on 12-27-2024 AST [Catalytic activity/Vol] 40 U/L High 15 - 37 [facility] Comment on above: Performed By: #### 2 32185 #### [facility],[address] [place] [address] 71375 SGPT (ALT)on 12-27-2024 ALT [Catalytic activity/Vol] 85 U/L High 16 - 63 [facility] Comment on above: Performed By: #### 2 81544 #### [facility],[address] [place] [address] 57874 CBC + DIFFon 09-17-2024 Baso # 0.02 x10EE3/UL Normal 0.00 - 0.10 [facility] Comment on above: Performed By: #### 2 79345 #### [facility],[address] [place] [address] Basophils/100 WBC (Bld) 0.3 % Normal 0.0 - 2.0 [facility] Comment on above: Performed By: #### 2 24816 #### [place] [address] CBC + DIFF Normal [facility] Comment on above: Result Comment: CBC- COMPLETE BLOOD COUNT Performed By: #### 2 85083 #### [place] [address] EO # 0.09 x10EE3/UL Normal 0.00 - 0.50 [facility] Comment on above: Performed By: #### 2 35362 #### [place] [address] Eosinophils/100 WBC (Bld) 1.9 % Normal 0.0 - 7.0 [facility] Comment on above: Performed By: #### 2 69043 #### [place] [address] Erythrocyte distribution width (RBC) [Ratio] 13.8 % Normal 12.0 - 15.6 [facility] Comment on above: Performed By: #### 2 70720 #### [place] [address] Hematocrit (Bld) [Volume fraction] 50.7 % Normal 40.0 - 52.0 [facility] Comment on above: Performed By: #### 2 58891 #### [place] [address] Hemoglobin (Bld) [Mass/Vol] 17.7 g/dL High 13.0 - 17.5 [facility] Comment on above: Performed By: #### 2 71750 #### [address],[place] [address] Lymph # 1.71 x10EE3/UL Normal 0.80 - 2.80 [facility] Comment on above: Performed By: #### 2 99169 #### [facility],[address] [place] [address] Lymphocytes/100 WBC (Bld) 34.1 % Normal 20.0 - 45.0 [facility] Comment on above: Performed By: #### 2 91548 #### [facility],[address] [place] [address] MANUAL DIFF N/A Normal [facility] Comment on above: Performed By: #### 2 64830 #### [facility],[address] [place] [address] MCH (RBC) [Entitic mass] 31 pg Normal 27 - 33 [facility] Comment on above: Performed By: #### 2 12688 #### [facility],[address] [place] [address] MCHC 35 X10 3 Normal 32 - 36 [facility] Comment on above: Performed By: #### 2 09734 #### [facility],[address] [place] [address] MCV (RBC) [Entitic vol] 90 fL Normal 81 - 98 [facility] Comment on above: Performed By: #### 2 53925 #### [facility],[address] [place] [address] Stanton # 0.31 x10EE3/UL Normal 0.20 - 1.00 [facility] Comment on above: Performed By: #### 2 34491 #### [facility],[address] [place] [address] MONOS % 6.1 % Normal 0.0 - 10.0 [facility] Comment on above: Performed By: #### 2 51769 #### [facility],[address],[place] [address] Morphology Paco (Bld) [Interp] N/A Normal [facility] Comment on above: Performed By: #### 2 27620 #### [facility],[address] [place] [address] 86672 Neut # 2.89 x10EE3/UL Normal 1.50 - 7.10 [facility] Comment on above: Performed By: #### 2 44476 #### [facility],[address] [place] [address] 09915 Neutrophils/100 WBC (Bld) 57.6 % Normal 46.0 - 76.0 [facility] Comment on above: Performed By: #### 2 81865 #### [facility],[address] [place] [address] 15506 PLATELET 238 x10EE3/UL Normal 150 - 450 [facility] Comment on above: Performed By: #### 2 47697 #### [facility],[address] [place] [address] 16621 Platelet mean volume (Bld) [Entitic vol] 7.0 fL Normal 6.4 - 10.5 [facility] Comment on above: Result Comment: AUTO MATED DIFFERENTIAL Performed By: #### 2 13828 #### [facility],[address] [place] [address] 46255 RBC 5.66 x 10EE6/UL Normal 4.50 - 6.00 [facility] Comment on above: Performed By: #### 2 76552 #### [facility],[address] [place] [address] 20715 WBC 5.0 x 10EE3/UL Normal 4.5 - 10.8 [facility] Comment on above: Performed By: #### 2 65890 #### [facility],[address] [place] [address] 19688 T4-FREE (FREE THYROXINE)on 0 09-17-2024 Free T4 [Mass/Vol] 0.82 ng/dL Normal 0.76 - 1.46 [facility] Comment on above: Result Comment: P otential of falsely elevated results when biotin concentrations are > 10 ng/mL. Performed By: #### 2 18359 #### [facility],[address] [place] [address] 30440 TSHon 09-17-2024 TSH Qn 2.28 m[IU]/L Normal 0.35 - 3.74 [facility] Comment on above: Performed By: #### 2 [id number] #### [facility],[address] [place] [address] 38626 Cardiology Visit Reporton Cardiology Visit Report [facility] [address] [place] [address] OFFICE VISIT Date of Service: 09/12/24 MR#: [id number] Acct: [id number] Name: REG KAPLAN Rep #: [id number] : 1980 Provider: ALLA askew Age/Sex: 44/M Location: [facility] Status: Signed HPI HPI History of Present Illness Details: Pleasant 44-year-old man who presented with chest discomfort. He had been hyperventilating and feeling panicky developed left-sided chest discomfort he was transferred to tertiary care institution where he underwent cardiac catheterization which demonstrated minimal coronary artery disease and preserved ejection fraction. He has been placed on medication. He was evaluated at [facility] in June 2022 for TIA. He underwent an echocardiogram and LUIS that showed concerns for PFO. He underwent a 30-day event monitor that showed sinus rhythm. It was not felt that he required PFO closure at office visit in August 2022. He also a history of KAITLIN with CPAP treatment. He denies chest, arm, jaw, or neck discomfort. He states and frequent palpitations that he describes as fast. He states this is improved since resuming metoprolol. He denies bilateral lower extremity edema. He denies claudication. He denies shortness of breath with activity, shortness of breath at rest, orthopnea, or PND. He denies chronic cough. He denies significant, sudden weight gain. He denies lightheadedness, dizziness, near-syncope, or syncope. He denies blood in urine, blood in stool, or epistaxis. He denies fever with chills. He denies myalgia. He acknowledges fatigue. His exercise level has remained stable. Intake Vital Signs 03/12/24 09:06 09/12/24 08:35 Height 6 ft 2 in 6 ft 2 in Weight: 336 lb 332 lb BMI 43.1 42.6 BP 119/80 142/88 H Blood Pressure Location Rt brachial Lt brachial Position Sitting Sitting Respiration 16 16 Pulse 82 89 Pulse Source NIBP NIBP Intake Visit Reasons: 6 M FU Development Associate Required: No Is patient in pain?: No Allergies Pimbjxw-CAB-DhN Reductase Inhibitor Adverse Reaction (Intermediate, Verified 09/12/24 08:41) ELEVATED CPK LEVELS Medications ???Medication ???Instructions ???Recorded ???Confirmed ???Type empagliflozin 25 mg tablet 25 mg PO DAILY 09/09/22 09/12/24 H istory (Jardiance) metformin 500 mg tablet,extended 1,000 mg PO BID 09/09/22 09/12/24 History release 24 hr amlodipine 5 mg tablet 5 mg PO DAILY #90 tabs 08/04/23 Rx ergocalciferol (vitamin D2) 1,250 1,250 mcg PO 2XW 01/15/24 5 History mcg (50,000 unit) capsule metoprolol succinate 25 mg 25 mg PO QHS heart rate #90 tabs 0 01/15/24 09/12/24 Rx tablet,extended release 24 hr (Toprol XL) Held on 09/12/24. Instructions: ? fatigue testosterone 40.5 mg topical QAM 01/15/2409/12 History evolocumab 140 mg/mL subcutaneous 140 mg subcut Q2W #2 mL 03/12/24 09/12/24 Rx pen injector (Repatha Iliana) semaglutide 1 mg/dose (4 mg/3 mL) 1 mg subcut QWEEK 09/12/24 History subcutaneous pen injector (Ozempic) Ejection fraction %: 55 (55-60) Have you fallen in the past year?: No PFSH Medical History Shortness of breath Chest pain Palpitations Elevated CPK Hypertriglyceridemia Former tobacco use Acute pancreatitis Morbid obesity HLD (hyperlipidemia) History of non-ST elevation myocardial infarction (NSTEMI) (06/25/19) Obstructive sleep apnea Essential hypertension Surgical History History of arthroscopic knee surgery ( 04/2023) No significant past surgical history History of left heart catheterization (06/26/19) Family History Father Heart disease Hypertension Mother Hypertension Social History (Updated 09/12/24 @ 08:43 by Ronna Freitas) household members: other details: Spouse and children x 3. current occupational status: employed Smoking Status: Former smoker how long ago did patient quit smoking: Smoked age [age], weekend social only. alcohol intake: current alcohol intake frequency: a few times a month details: He notes heavier intake in the past in youth. Denies abuse currently. substance use type: does not use caffeine: Yes Type: carbonated beverages Number of servings: 2 ROS Const Const: Positive for fatigue (Extremely tired but can figure out why) and other (Recent issues with getting hot and sweating when inside. ); Negative for weakness Eyes Eyes: Negative for change in vision ENT ENT: Negative for dizziness or balance problems Cardio Chest Pain: No Palpitations: Yes (Infrequently since resuming metoprolol) feels like its: fast Edema: None Muscle aches with walking: None R (more content not included)... Normal [facility] BMP with eGFRon 09-09-2024 AGE 44 years Normal [facility] Comment on above: Performed By: #### 2 62983 #### [facility],[address] [place] [address] Anion gap [Moles/Vol] 17 mmol/L Normal - [facility] Comment on above: Performed By: #### 2 18741 #### [facility],[address] [place] [address] BMP with eGFR Normal [facility] Comment on above: Result Comment: BASI C METABOLIC PANEL Performed By: #### 2 19584 #### [facility],[address] [place] [address] 54932 Calcium [Mass/Vol] 9.4 mg/dL Normal 8.5 - 10.1 [facility] Comment on above: Performed By: #### 2 75649 #### [facility],[address] [place] [address] 16074 Chloride [Moles/Vol] 102 mmol/L Normal 98 - 107 [facility] Comment on above: Performed By: #### 2 73607 #### [facility],[address] [place] [address] 16180 CO2 [Moles/Vol] 21.7 mmol/L Normal 21.0 - 32.0 [facility] Comment on above: Performed By: #### 2 99448 #### [facility],[address] [place] [address] 63953 Creatinine [Mass/Vol] 0.88 mg/dL Normal 0.70 - 1.30 [facility] Comment on above: Performed By: #### 2 63435 #### [facility],[address] [place] [address] 07015 GFR/1.73 sq M.predicted among non-blacks MDRD (S/P/Bld) [Vol rate/Area] mL/min/{1.73_m2} Normal 60 - 999 [facility] Comment on above: Performed By: #### 2 34844 #### [facility],[address] [place] [address] 17418 Result Comment: ACCO RDING TO THE NATIONAL KIDNEY DISEASE EDUCATION PROGRAM(NKDE), A NORMAL eGFR IS A VALUE GREATER THAN OR EQUAL TO 60 ML/MIN/1.73 SQ METERS. CHRONIC KIDNEY DISEASE: <60mL/MIN/1.73 SQ METERS KIDNEY FAILURE: <15mL/MIN/1.73 SQ METERS THIS TEST SHOULD ONLY BE USED FOR PATIENTS 18 YEARS OF AGE AND OLDER. Glucose [Mass/Vol] 132 mg/dL High 74 - 106 [facility] Comment on above: Performed By: #### 2 07868 #### [facility],[address] [place] [address] 79210 Potassium [Moles/Vol] 4.0 mmol/L Normal 3.5 - 5.1 [facility] Comment on above: Performed By: #### 2 86469 #### [facility],[address] [place] [address] 35552 Sodium [Moles/Vol] 137 mmol/L Normal 136 - 145 [facility] Comment on above: Performed By: #### 2 30446 #### [facility],[address] [place] [address] 74733 Urea nitrogen [Mass/Vol] 15 mg/dL Normal 7 - 18 [facility] Comment on above: Performed By: #### 2 39438 #### [facility],[address] [place] [address] 36977 CBC + DIFFon 09-09-2024 Baso # 0.01 x10EE3/UL Normal 0.00 - 0.10 [facility] Comment on above: Performed By: #### 2 64717 #### [facility],[address] [place] [address] 06754 Basophils/100 WBC (Bld) 0.1 % Normal 0.0 - 2.0 [facility] Comment on above: Performed By: #### 2 53824 #### [facility],[address] [place] [address] 17846 CBC + DIFF Normal [facility] Comment on above: Result Comment: CBC- COMPLETE BLOOD COUNT Performed By: #### 2 74890 #### [facility],[address] [place] [address] 99791 EO # 0.11 x10EE3/UL Normal 0.00 - 0.50 [facility] Comment on above: Performed By: #### 2 66711 #### [facility],[address] [place] [address] 44034 Eosinophils/100 WBC (Bld) 2.0 % Normal 0.0 - 7.0 [facility] Comment on above: Performed By: #### 2 33852 #### [facility],[address] [place] [address] Erythrocyte distribution width (RBC) [Ratio] 13.3 % Normal 12.0 - 15.6 [facility] Comment on above: Performed By: #### 2 21965 #### [facility],[address] [place] [address] Hematocrit (Bld) [Volume fraction] 51.6 % Normal 40.0 - 52.0 [facility] Comment on above: Performed By: #### 2 64260 #### [facility],[address] [place] [address] Hemoglobin (Bld) [Mass/Vol] 17.9 g/dL High 13.0 - 17.5 [facility] Comment on above: Performed By: #### 2 68902 #### [facility],[address] [place] [address] Lymph # 1.90 x10EE3/UL Normal 0.80 - 2.80 [facility] Comment on above: Performed By: #### 2 58567 #### [facility],[address] [place] [address] Lymphocytes/100 WBC (Bld) 34.3 % Normal 20.0 - 45.0 [facility] Comment on above: Performed By: #### 2 99575 #### [facility],[address] [place], [place] [address] MANUAL DIFF N/A Normal [facility] Comment on above: Performed By: #### 2 45590 #### [facility],[address] [place], [place] [address] MCH (RBC) [Entitic mass] 31 pg Normal 27 - 33 [facility] Comment on above: Performed By: #### 2 61348 #### [facility],[address] [place] [address] MCHC 35 X10 3 Normal 32 - 36 [facility] Comment on above: Performed By: #### 2 59211 #### [facility],[address] [place] [address] MCV (RBC) [Entitic vol] 90 fL Normal 81 - 98 [facility] Comment on above: Performed By: #### 2 74007 #### [facility],[address] [place] [address] Stanton # 0.29 x10EE3/UL Normal 0.20 - 1.00 [facility] Comment on above: Performed By: #### 2 17958 #### [facility],[address] [place] [address] MONOS % 5.2 % Normal 0.0 - 10.0 [facility] Comment on above: Performed By: #### 2 84001 #### [facility],[address] [place] [address] Morphology Paco (Bld) [Interp] N/A Normal [facility] Comment on above: Performed By: #### 2 00440 #### [facility],[address] [place] [address] Neut # 3.22 x10EE3/UL Normal 1.50 - 7.10 [facility] Comment on above: Performed By: #### 2 88910 #### [facility],[address] [place] [address] Neutrophils/100 WBC (Bld) 58.3 % Normal 46.0 - 76.0 [facility] Comment on above: Performed By: #### 2 43399 #### [facility],[address] [place] [address] PLATELET 244 x10EE3/UL Normal 150 - 450 [facility] Comment on above: Performed By: #### 2 48966 #### [facility],[address],[place] [address] Platelet mean volume (Bld) [Entitic vol] 7.0 fL Normal 6.4 - 10.5 [facility] Comment on above: Result Comment: AUTO MATED DIFFERENTIAL Performed By: #### 2 81250 #### [facility],[address] [place] [address] 28032 RBC 5.76 x 10EE6/UL Normal 4.50 - 6.00 [facility] Comment on above: Performed By: #### 2 66211 #### [facility],[address] [place] [address] 74254 WBC 5.5 x 10EE3/UL Normal 4.5 - 10.8 [facility] Comment on above: Performed By: #### 2 55470 #### [facility],[address] [place], [place] [address] HEMOGLOBIN A1C (POM)on 09-09 Glucose [Mass/Vol] 125.5 mg/dL High 0.0 - 0.0 [facility] Comment on above: Result Comment: BLDo HEMOGLOBIN A1C REFERENCE RANGESBLDo Suggested Diagnosis HbA1c(%) HbA1C (mmol/mol Diabetic >/=6.5 >/=48 Prediabetes 5.7 - 6.4 39 - 47 Normal <5.7 <39 Performed By: #### 2 06352 #### [facility],[address] [place] [address] 59233 HbA1c (Bld) [Mass fraction] 6.0 % Normal 0.0 - 6.5 [facility] Comment on above: Performed By: #### 2 56382 #### [facility],[address] [place] [address] 67384 LIPID PROFILEon 09-09-2024 Cholesterol [Mass/Vol] 146 mg/dL Normal 0 - 240 [facility] Comment on above: Performed By: #### 2 51288 #### [facility],[address] [place] [address] 64479 Cholesterol in HDL [Mass/Vol] 44 mg/dL Normal 40 - 60 [facility] Comment on above: Performed By: #### 2 41620 #### [facility],[address] [place] [address] 40119 Cholesterol.total/C holesterol in HDL [Mass ratio] 3.3 {ratio} Normal 0.0 - 5.0 [facility] Comment on above: Performed By: #### 2 83989 #### [facility],[address] [place] [address] 50850 LDL N/A Normal 0 - 129 [facility] Comment on above: Performed By: #### 2 98912 #### [facility],[address] [place] [address] 62206 Lipid 1996 panel Normal [facility] Comment on above: Result Comment: LIPI D PROFILE Performed By: #### 2 00768 #### [facility],[address] [place] [address] 08784 Triglyceride [Mass/Vol] 671 mg/dL High 0 - 150 [facility] Comment on above: Performed By: #### 2 46748 #### [facility],[address] [place] [address] 22552 SGOT (AST)on 09-09-2024 AST [Catalytic activity/Vol] 36 U/L Normal 15 - 37 [facility] Comment on above: Performed By: #### 2 34955 #### [facility],[address] [place] [address] 01399 SGPT (ALT)on 09-09-2024 ALT [Catalytic activity/Vol] 84 U/L High 16 - 63 [facility] Comment on above: Performed By: #### 2 57754 #### [facility],[address] [place] [address] 82129 TESTOSTERONE [CCL]on 025 Testosterone [Mass/Vol] 444 ng/dL Normal 193-824 [facility] Comment on above: Result Comment: A te stosterone level in the 193-320 ng/dL range with associated clinical symptoms is considered low and may indicate hypogonadism (from [facility] 2010 363:123-135). Results >320 ng/dL are considered normal. [address] [place] [address] Vj Oden III, M.D. [id number] Performed By: #### 2 31790 #### [facility],[address] [place] [address] 44344 Testost SerPl-mCncon 025 Testosterone [Mass/Vol] 444 ng/dL Normal 193-824 [facility] Comment on above: Order Comment: Speci men Type: BLOOD SPECIMEN Ordering Facility: [facility] Address: [address] [place] [address] Result Comment: A te stosterone level in the 193-320 ng/dL range with associated clinical symptoms is considered low and may indicate hypogonadism (from [facility] 2010 363:123-135). Results >320 ng/dL are considered normal. Performed By: #### 2 986-8 #### [facility] CLIA [id number] [address] [place], [place] [address] [address] [address] [place] VITAMIN D, 25 HYDROXYon 08-24 VitD 38.40 ng/mL Normal 30.00 - 100 [facility] Comment on above: Result Comment: 25-O HD3 indicates both endogenous production and supplementation. 25-OHD2 is an indicator of exogenous sources, such as diet or supplementation. Therapy is based on measurement of Total 25-OHD, with levels <20 ng/mL indicative of Vitamin D deficiency, while levels between 20 ng/mL and 30 ng/mL suggest insufficiency. Optimal levels are >=30ng/mL. Vitamin D, 25-OH D3 Not Established Vitamin D, 25-OH D2 Not Established Performed By: #### 2 70204 #### [facility],[address] [place] [address] 61724 BMP with eGFRon 06-19-2024 AGE 44 years Normal [facility] Comment on above: Performed By: #### 2 23896 #### [facility],[address] [place] [address] 44386 Anion gap [Moles/Vol] 16 mmol/L Normal 10 - 20 [facility] Comment on above: Performed By: #### 2 83265 #### [facility],[address] [place] [address] 99409 BMP with eGFR Normal [facility] Comment on above: Result Comment: BASI C METABOLIC PANEL Performed By: #### 2 81644 #### [facility],[address] [place] [address] 11803 Calcium [Mass/Vol] 9.0 mg/dL Normal 8.5 - 10.1 [facility] Comment on above: Performed By: #### 2 11677 #### [facility],[address] [place] [address] 36451 Chloride [Moles/Vol] 103 mmol/L Normal 98 - 107 [facility] Comment on above: Performed By: #### 2 47073 #### [facility],[address] [place] [address] 78318 CO2 [Moles/Vol] 23.7 mmol/L Normal 21.0 - 32.0 [facility] Comment on above: Performed By: #### 2 85511 #### [facility],[address] [place] [address] 28218 Creatinine [Mass/Vol] 0.93 mg/dL Normal 0.70 - 1.30 [facility] Comment on above: Performed By: #### 2 70393 #### [facility],[address] [place] [address] 21089 GFR/1.73 sq M.predicted among non-blacks MDRD (S/P/Bld) [Vol rate/Area] mL/min/{1.73_m2} Normal 60 - 999 [facility] Comment on above: Performed By: #### 2 40153 #### [facility],[address] [place] [address] 25513 Result Comment: ACCO RDING TO THE NATIONAL KIDNEY DISEASE EDUCATION PROGRAM(NKDE), A NORMAL eGFR IS A VALUE GREATER THAN OR EQUAL TO 60 ML/MIN/1.73 SQ METERS. CHRONIC KIDNEY DISEASE: <60mL/MIN/1.73 SQ METERS KIDNEY FAILURE: <15mL/MIN/1.73 SQ METERS THIS TEST SHOULD ONLY BE USED FOR PATIENTS 18 YEARS OF AGE AND OLDER. Glucose [Mass/Vol] 136 mg/dL High 74 - 106 [facility] Comment on above: Performed By: #### 2 44848 #### [facility],[address] [place] [address] 73861 Potassium [Moles/Vol] 3.9 mmol/L Normal 3.5 - 5.1 [facility] Comment on above: Performed By: #### 2 42786 #### [facility],[address] [place] [address] 18703 Sodium [Moles/Vol] 139 mmol/L Normal 136 - 145 [facility] Comment on above: Performed By: #### 2 85255 #### [facility],[address] [place] [address] 22156 Urea nitrogen [Mass/Vol] 18 mg/dL Normal 7 - 18 [facility] Comment on above: Performed By: #### 2 45723 #### [facility],[address] [place] [address] 22222 HEMOGLOBIN A1C (POM)on 06-19 Glucose [Mass/Vol] 137.0 mg/dL High 0.0 - 0.0 [facility] Comment on above: Result Comment: BLDo HEMOGLOBIN A1C REFERENCE RANGESBLDo Suggested Diagnosis HbA1c(%) HbA1C (mmol/mol Diabetic >/=6.5 >/=48 Prediabetes 5.7 - 6.4 39 - 47 Normal <5.7 <39 Performed By: #### 2 24244 #### [facility],[address] [place] [address] 74569 HbA1c (Bld) [Mass fraction] 6.4 % Normal 0.0 - 6.5 [facility] Comment on above: Performed By: #### 2 35893 #### [facility],[address] [place] [address] 68556 SGOT (AST)on 06-19-2024 AST [Catalytic activity/Vol] 41 U/L High 15 - 37 [facility] Comment on above: Performed By: #### 2 94068 #### [facility],[address] [place] [address] 07002 SGPT (ALT)on 06-19-2024 ALT [Catalytic activity/Vol] 72 U/L High 16 - 63 [facility] Comment on above: Performed By: #### 2 37656 #### [facility],[address] [place] [address] 70906 TESTOSTERONE [CCL]on 024 Testosterone [Mass/Vol] 542 ng/dL Normal 193-824 [facility] Comment on above: Result Comment: A te stosterone level in the 193-320 ng/dL range with associated clinical symptoms is considered low and may indicate hypogonadism (from [facility] 2010 363:123-135). Results >320 ng/dL are considered normal. [facility] [address] [place] [address] jV Oden III, M.D. [id number] Performed By: #### 2 71090 #### [facility],[address] [place] [address] 53830 Testost SerPl-mCncon 024 Testosterone [Mass/Vol] 542 ng/dL Normal 193-824 [facility] Comment on above: Order Comment: Speci men Type: BLOOD SPECIMEN Ordering Facility: [facility] Address: [address] [place] [address] Result Comment: A te stosterone level in the 193-320 ng/dL range with associated clinical symptoms is considered low and may indicate hypogonadism (from [facility] 2009 363:123-135). Results >320 ng/dL are considered normal. Performed By: #### 2 986-8 #### [facility] CLIA [id number] [address] [place] [address] [place] VITAMIN D, 25 HYDROXYon 11-2 VitD 24.50 ng/mL Low 30.00 - 100 [facility] Comment on above: Result Comment: 25-O HD3 indicates both endogenous production and supplementation. 25-OHD2 is an indicator of exogenous sources, such as diet or supplementation. Therapy is based on measurement of Total 25-OHD, with levels <20 ng/mL indicative of Vitamin D deficiency, while levels between 20 ng/mL and 30 ng/mL suggest insufficiency. Optimal levels are >=30ng/mL. Vitamin D, 25-OH D3 Not Established Vitamin D, 25-OH D2 Not Established Performed By: #### 2 98222 #### [facility],[address] [place] [address] 02228 CMP with eGFRon 04-25-2024 AGE 44 years Normal [facility] Comment on above: Performed By: #### 2 73112 #### [facility],[address] [place] [address] 08051 Albumin [Mass/Vol] 3.9 g/dL Normal 3.4 - 5.0 [facility] Comment on above: Performed By: #### 2 63458 #### [facility],[address] [place] [address] 90608 Albumin/Globulin [Mass ratio] 1.0 {ratio} Normal 0.9 - 1.6 [facility] Comment on above: Performed By: #### 2 69136 #### [facility],[address] [place] [address] 71539 ALK PHOS 96 U/L Normal 46 - 116 [facility] Comment on above: Performed By: #### 2 33715 #### [facility],[address] [place] [address] 17404 ALT [Catalytic activity/Vol] 56 U/L Normal 16 - 63 [facility] Comment on above: Performed By: #### 2 32592 #### [facility],[address] [place] [address] 67565 Anion gap [Moles/Vol] 15 mmol/L Normal 10 - 20 [facility] Comment on above: Performed By: #### 2 28730 #### [facility],[address] [place] [address] 81673 AST [Catalytic activity/Vol] 25 U/L Normal 15 - 37 [facility] Comment on above: Performed By: #### 2 57469 #### [facility],[address] [place] [address] 54875 B/C RATIO 15 ratio Normal 0 - 30 [facility] Comment on above: Performed By: #### 2 71795 #### [facility],[address] [place] [address] 44002 Bilirubin [Mass/Vol] 0.6 mg/dL Normal 0.2 - 1.0 [facility] Comment on above: Performed By: #### 2 55436 #### [facility],[address] [place] [address] 19148 Calcium [Mass/Vol] 8.6 mg/dL Normal 8.5 - 10.1 [facility] Comment on above: Performed By: #### 2 93222 #### [facility],[address] [place] [address] 12313 Chloride [Moles/Vol] 99 mmol/L Normal 98 - 107 [facility] Comment on above: Performed By: #### 2 30312 #### [facility],[address] [place] [address] 90881 CMP with eGFR Normal [facility] Comment on above: Result Comment: COMP REHENSIVE METABOLIC PANEL Performed By: #### 2 73421 #### [facility],[address] [place] [address] 96556 CO2 [Moles/Vol] 22.5 mmol/L Normal 21.0 - 32.0 [facility] Comment on above: Performed By: #### 2 77694 #### [facility],[address] [place] [address] 71484 Creatinine [Mass/Vol] 0.98 mg/dL Normal 0.70 - 1.30 [facility] Comment on above: Performed By: #### 2 64402 #### [facility],[address] [place] [address] 11063 GFR/1.73 sq M.predicted among non-blacks MDRD (S/P/Bld) [Vol rate/Area] mL/min/{1.73_m2} Normal 60 - 999 [facility] Comment on above: Performed By: #### 2 95780 #### [facility],[address] [place], [place] [address] Result Comment: ACCO RDING TO THE NATIONAL KIDNEY DISEASE EDUCATION PROGRAM(NKDE), A NORMAL eGFR IS A VALUE GREATER THAN OR EQUAL TO 60 ML/MIN/1.73 SQ METERS. CHRONIC KIDNEY DISEASE: <60mL/MIN/1.73 SQ METERS KIDNEY FAILURE: <15mL/MIN/1.73 SQ METERS THIS TEST SHOULD ONLY BE USED FOR PATIENTS 18 YEARS OF AGE AND OLDER. Globulin (S) [Mass/Vol] 3.9 g/dL High 1.5 - 3.8 [facility] Comment on above: Performed By: #### 2 38394 #### [facility],[address] [place] [address] 83784 Glucose [Mass/Vol] 146 mg/dL High 74 - 106 [facility] Comment on above: Performed By: #### 2 57510 #### [facility],[address] [place] [address] 38097 Potassium [Moles/Vol] 3.9 mmol/L Normal 3.5 - 5.1 [facility] Comment on above: Performed By: #### 2 05408 #### [facility],[address] [place] [address] 07262 Protein [Mass/Vol] 7.8 g/dL Normal 6.4 - 8.2 [facility] Comment on above: Performed By: #### 2 07188 #### [facility],[address] [place] [address] 00134 Sodium [Moles/Vol] 133 mmol/L Low 136 - 145 [facility] Comment on above: Performed By: #### 2 08163 #### [facility],[address] [place] [address] 88536 Urea nitrogen [Mass/Vol] 15 mg/dL Normal 7 - 18 [facility] Comment on above: Performed By: #### 2 03948 #### [facility],[address] [place] [address] 11093 CPKon 04-25-2024 CPK 390 U/L High 39 - 308 [facility] Comment on above: Performed By: #### 2 66157 #### [facility],[address] [place] [address] 82957 LIPID PROFILEon 04-25-2024 Cholesterol [Mass/Vol] 195 mg/dL Normal 0 - 240 [facility] Comment on above: Performed By: #### 2 45018 #### [facility],[address] [place] [address] 18882 Cholesterol in HDL [Mass/Vol] 44 mg/dL Normal 40 - 60 [facility] Comment on above: Performed By: #### 2 87071 #### [facility],[address] [place] [address] 20252 Cholesterol.total/C holesterol in HDL [Mass ratio] 4.4 {ratio} Normal 0.0 - 5.0 [facility] Comment on above: Performed By: #### 2 08764 #### [facility],[address] [place] [address] 97402 LDL N/A Normal 0 - 129 [facility] Comment on above: Performed By: #### 2 51269 #### [facility],[address] [place] [address] 49894 Lipid 1996 panel Normal [facility] Comment on above: Result Comment: LIPI D PROFILE Performed By: #### 2 45089 #### [facility],[address] [place] [address] 19724 Triglyceride [Mass/Vol] 903 mg/dL High 0 - 150 [facility] Comment on above: Performed By: #### 2 48157 #### [facility],[address] [place] [address] 26801 BMP with eGFRon 03-15-2024 AGE 44 years Normal [facility] Comment on above: Performed By: #### 2 52619 #### [facility],[address] [place] [address] 49303 Anion gap [Moles/Vol] 15 mmol/L Normal 10 - 20 [facility] Comment on above: Performed By: #### 2 28914 #### [facility],[address] [place] [address] 61657 BMP with eGFR Normal [facility] Comment on above: Result Comment: BASI C METABOLIC PANEL Performed By: #### 2 26671 #### [facility],[address] [place] [address] 02557 Calcium [Mass/Vol] 9.1 mg/dL Normal 8.5 - 10.1 [facility] Comment on above: Performed By: #### 2 31949 #### [facility],[address] [place] [address] 29322 Chloride [Moles/Vol] 102 mmol/L Normal 98 - 107 [facility] Comment on above: Performed By: #### 2 16549 #### [facility],[address] [place] [address] 94594 CO2 [Moles/Vol] 23.8 mmol/L Normal 21.0 - 32.0 [facility] Comment on above: Performed By: #### 2 66086 #### [facility],[address] [place] [address] 78737 Creatinine [Mass/Vol] 0.91 mg/dL Normal 0.70 - 1.30 [facility] Comment on above: Performed By: #### 2 05424 #### [facility],[address] [place] [address] 38355 GFR/1.73 sq M.predicted among non-blacks MDRD (S/P/Bld) [Vol rate/Area] mL/min/{1.73_m2} Normal 60 - 999 [facility] Comment on above: Performed By: #### 2 36440 #### [facility],[address] [place] [address] 34163 Result Comment: ACCO RDING TO THE NATIONAL KIDNEY DISEASE EDUCATION PROGRAM(NKDE), A NORMAL eGFR IS A VALUE GREATER THAN OR EQUAL TO 60 ML/MIN/1.73 SQ METERS. CHRONIC KIDNEY DISEASE: <60mL/MIN/1.73 SQ METERS KIDNEY FAILURE: <15mL/MIN/1.73 SQ METERS THIS TEST SHOULD ONLY BE USED FOR PATIENTS 18 YEARS OF AGE AND OLDER. Glucose [Mass/Vol] 154 mg/dL High 74 - 106 [facility] Comment on above: Performed By: #### 2 94264 #### [facility],[address] [place] [address] 38679 Potassium [Moles/Vol] 4.1 mmol/L Normal 3.5 - 5.1 [facility] Comment on above: Performed By: #### 2 25283 #### [facility],[address] [place] [address] 66066 Sodium [Moles/Vol] 137 mmol/L Normal 136 - 145 [facility] Comment on above: Performed By: #### 2 21801 #### [facility],[address] [place] [address] 45404 Urea nitrogen [Mass/Vol] 17 mg/dL Normal 7 - 18 [facility] Comment on above: Performed By: #### 2 02370 #### [facility],[address] [place] [address] 36711 HEMOGLOBIN A1C (POM)on 03-15 Glucose [Mass/Vol] 159.9 mg/dL High 0.0 - 0.0 [facility] Comment on above: Result Comment: BLDo HEMOGLOBIN A1C REFERENCE RANGESBLDo Suggested Diagnosis HbA1c(%) HbA1C (mmol/mol Diabetic >/=6.5 >/=48 Prediabetes 5.7 - 6.4 39 - 47 Normal <5.7 <39 Performed By: #### 2 53536 #### [facility],[address] [place] [address] 68691 HbA1c (Bld) [Mass fraction] 7.2 % High 0.0 - 6.5 [facility] Comment on above: Performed By: #### 2 16528 #### [facility],[address] [place] [address] 00356 LIPID PROFILEon 03-15-2024 Cholesterol [Mass/Vol] 164 mg/dL Normal 0 - 240 [facility] Comment on above: Performed By: #### 2 69027 #### [facility],[address] [place] [address] 55525 Cholesterol in HDL [Mass/Vol] 42 mg/dL Normal 40 - 60 [facility] Comment on above: Performed By: #### 2 43304 #### [facility],[address] [place] [address] 62609 Cholesterol.total/C holesterol in HDL [Mass ratio] 3.9 {ratio} Normal 0.0 - 5.0 [facility] Comment on above: Performed By: #### 2 03566 #### [facility],[address] [place] [address] 79786 LDL N/A Normal 0 - 129 [facility] Comment on above: Performed By: #### 2 41191 #### [facility],[address] [place] [address] 58860 Lipid 1996 panel Normal [facility] Comment on above: Result Comment: LIPI D PROFILE Performed By: #### 2 15534 #### [facility],[address] [place] [address] 63610 Triglyceride [Mass/Vol] 417 mg/dL High 0 - 150 [facility] Comment on above: Performed By: #### 2 45080 #### [facility],[address] [place] [address] 90802 SGOT (AST)on 03-15-2024 AST [Catalytic activity/Vol] 34 U/L Normal 15 - 37 [facility] Comment on above: Performed By: #### 2 44261 #### [facility],[address] [place] [address] 60919 SGPT (ALT)on 03-15-2024 ALT [Catalytic activity/Vol] 65 U/L High 16 - 63 [facility] Comment on above: Performed By: #### 2 51228 #### [facility],[address] [place] [address] 60980 Cardiology Visit Reporton Cardiology Visit Report [facility] [place] [address] OFFICE VISIT Date of Service: 03/12/24 MR#: [id number] Acct: [id number] Name: REG KAPLAN Rep #: [id number] : 1980 Provider: ALLA askew Age/Sex: 44/M Location: [facility] Status: Signed [facility] HPI History of Present Illness Details: Pleasant 44-year-old man who presented with chest discomfort. He had been hyperventilating and feeling panicky developed left-sided chest discomfort he was transferred to tertiary care institution where he underwent cardiac catheterization which demonstrated minimal coronary artery disease and preserved ejection fraction. He has been placed on medication. He was evaluated at [facility] in June 2022 for TIA. He underwent an echocardiogram and LUIS that showed concerns for PFO. He underwent a 30-day event monitor that showed sinus rhythm. It was not felt that he required PFO closure at office visit in August 2022. He also a history of KAITLIN with CPAP treatment. He denies chest, arm, jaw, or neck discomfort. He denies palpitations. He denies bilateral lower extremity edema. He denies claudication. He denies shortness of breath with activity, shortness of breath at rest, orthopnea, or PND. He denies chronic cough. He denies significant, sudden weight gain. He denies lightheadedness, dizziness, near-syncope, or syncope. He denies blood in urine, blood in stool, or epistaxis. He denies fever with chills. He denies myalgia. He denies fatigue. His exercise level has remained stable. Intake Vital Signs 01/13/23 08:54 01/15/24 13:36 03/12/24 09:06 Height 6 ft 2 in 6 ft 2 in 6 ft 2 in Weight: 336 lb BMI 43.1 BP 119/80 Blood Pressure Location Rt brachial Position Sitting Respiration 16 Pulse 82 Pulse Source NIBP Intake Visit Reasons: 1 Y FU (MOVED FROM [facility]) Development Associate Required: No Is patient in pain?: No Allergies No Known Allergies Allergy (Unverified 01/15/24 13:39) Medications ???Medication ???Instructions ???Recorded ???Confirmed ???Type empagliflozin 25 mg tablet 25 mg PO DAILY 09/09/22 03/12/24 History (Jardiance) metformin 500 mg tablet,extended 1,000 mg PO BID 09/09/22 03/12/24 History release 24 hr amlodipine 5 mg tablet 5 mg PO DAILY #90 tabs 08/04/23 03/12/24 Rx ergocalciferol (vitamin D2) 1,250 1,250 mcg PO 2XW 01/15/24 03/12/24 History mcg (50,000 unit) capsule glimepiride 4 mg tablet 4 mg PO QDAY 01/15/24 03/12/24 History metoprolol succinate 25 mg 25 mg PO QHS heart rate #90 tabs 01/15/24 03/12/24 Rx tablet,extended release 24 hr (Toprol XL) testosterone 40.5 mg topical QAM 01/15/24 03/12/24 History evolocumab 140 mg/mL subcutaneous 140 mg subcut Q2W #2 mL 03/12/24 03/12/24 Rx pen injector (Petrona Barrientos) Ejection fraction %: 60 PFSH Medical History (Updated 03/12/24 @ 09:34 by Edgar Martinez DIALS INSPECTOR, DIALS INSPECTOR-C) Shortness of breath Chest pain Palpitations Elevated CPK Hypertriglyceridemia Former tobacco use Acute pancreatitis Morbid obesity HLD (hyperlipidemia) History of non-ST elevation myocardial infarction (NSTEMI) (06/25/19) Obstructive sleep apnea Essential hypertension Surgical History (Updated 01/15/24 @ 13:49 by Ronna Freitas) History of arthroscopic knee surgery ( 04/2023) No significant past surgical history History of left heart catheterization (06/26/19) Family History Father Heart disease Hypertension Mother Hypertension Social History household members: other details: Spouse and children x 3. current occupational status: employed Smoking Status: Former smoker how long ago did patient quit smoking: Smoked age [age], weekend social only. alcohol intake: current alcohol intake frequency: a few times a month details: He notes heavier intake in the past in youth. Denies abuse currently. substance use type: does not use ROS Const Const: Negative for fatigue, weakness, body ache, fever(s) or chills ENT ENT: Negative for dizziness or Nosebleed/epistaxis Cardio Chest Pain: No Palpitations: No Edema: None Muscle aches with walking: None Resp Respiratory: Negative for SOB with activity, SOB at rest, SOB orthopnea SOB lying down, Cough or paroxysmal nocturnal dyspnea GI GI: Negative nausea, vomiting blood/hematemesis, bright, red blood in stools or black,tarry stools : Negative for hematuria or frequent nighttime urination/ nocturia Musc Musc: Negative for muscle aches/ myalgia Skin Skin: Negative non-healing lesions or rash Neuro Neuro: Negative for dizziness, lightheadedness, near syncope, syncope, orthostatic symptoms or weakness Endo Endo: Negative for fatigue Allergy Allergy/Immunology: N (more content not included)... Normal [facility] CV ECHO [facility] 4 CV ECHO [place] [address] Patient: REG KAPLAN Phone#: : 1980 Age: 44 Gender: M Pt. Type: Out Account: [id number] Location: 052 Ordering: [facility] Exam Date: 01/30/20248:52 Family Phys: Charge Code: [id number] Physician: Sweetwater Order #: [id number] Dose#: PROCEDURE: ECHOCARDIOGRAM WITH DOPPLER AND COLOR FLOW HISTORY: Patient is a 44-year-old male with history of dyspnea INDICATIONS: SOB COMPARISON: None. TECHNIQUE: A 2-D ultrasound, color spectral Doppler and M-mode evaluation of the heart and great vessels. PATIENT MEASUREMENTS: Height (in.): 74 BSA: 2.67 Weight (lbs.): 325 BP: 144/83 [employer]: [employer] M MODE 2D MEASUREMENTS AND CALCULATIONS: LVIDd: 6.22 cm LVIDs: 4.03 cm IVSd: 0.85 cm LVPWd: 1.16 cm LVOT diam: 2.1 cm FS: 35.16 % Ao Root diam: 3.06 cm LA diam: 4.6 cm LA Volume Index: 24 mL/m2 LA A4 Area: 21.80 cm2 RA A4 Area: 18.1 cm2 RVDd: 3.44 cm TAPSE: 29 mm DOPPLER MEASUREMENTS AND CALCULATIONS MITRAL MV E MAX louie: 0.70 m/s MV A MAX louie: 0.59 m/s MV E-A ratio: 1.19 Lat Peak E' Louie 10 cm/sec Septal Peak E' LOUIE 10 cm/sec E/E' medial 7 E/E' lateral 7 Continued Report - Page 2 of 3 Patient: REG KAPLAN Phone#: : 1980 Age: 44 Gender: M Pt. Type: Out Account: [id number] Location: 052 Ordering: [facility] Exam Date: 01/30/2024/8:52 Family Phys: Charge Code: [id number] Physician: Sweetwater Order #: [id number] Dose#: AORTIC Ao V2 max: 1.50 m/s Ao max P.96 mm[Hg] LV V1 Max 0.89 m/s LV V1 Max PG 3.17 mm[Hg] PULMONIC PA V2 Max 0.95 m/s PA Max PG 3.60 mm[Hg] TRICUSPID TR Max Louie 2.23 m/s TR max PG 19.88 mm[Hg] RVSP 23 mm Hg 2D/M-MODE AND COLOR FLOW LEFT VENTRICLE: Left ventricle is normal in size and thickness. Systolic ejection fraction is 55-60%. There are no regional wall motion abnormality seen. Diastolic function is normal. WALL MOTION: 1 - Basal anterior: Normal. 7 - Mid anterior: Normal. 13 - Apical anterior: Normal. 2 - Basal anteroseptal: Normal. 8 - Mid anteroseptal: Normal. 14 - Apical septal: Normal. 3 - Basal inferoseptal: Normal. 9 - Mid inferoseptal: Normal. 15 - Apical inferior: Normal. 4 - Basal inferior: Normal. 10-Mid inferior: Normal. 16 - Apical lateral: Normal. 5 - Basal inferolateral: Normal. 11-Mid inferolateral: Normal. 6 - Basal anterolateral: Normal. 12-Mid anterolateral: Normal. RIGHT VENTRICLE: Right ventricle is normal in size and systolic function. LEFT ATRIUM: Left atrium is normal size. RIGHT ATRIUM: Right atrium is normal size. ATRIAL SEPTUM: There is no large interatrial shunt seen. PFO was not assessed MITRAL VALVE: Mitral valve appears normal in structure. There is trivial regurgitation and no stenosis seen. TRICUSPID VALVE: Tricuspid valve is normal structure. There is no regurgitation or stenosis seen. AORTIC VALVE: Aortic valve is probably trileaflet. There is no regurgitation or stenosis seen PULMONIC VALVE: Pulmonic valve is inadequately visualized. Doppler shows no significant regurgitation or stenosis. AORTIC ROOT: Aortic root is normal in size AORTIC ARCH: Aortic arch normal in size DESC THORACIC AORTA: Inadequately visualized. Doppler shows normal systolic diastolic flow IVC/SVC: IVC is normal in size with more than 50% collapse of inspiration. Estimated atrial pressure is 3 mm Hg. PULMONARY VEINS: Normal pulmonic vein flow PERICARDIUM: There is no pericardial effusion seen CONCLUSION: Continued Report - Page 3 of 3 Patient: REG KAPLAN Phone#: : 1980 Age: 44 Gender: M Pt. Type: Out Account: [id number] Location: 052 Ordering: [facility] Exam Date: 01/30/2024/8:52 Family Phys: Charge Code: [id number] Physician: Sweetwater Order #: [id number] Dose#: 1. Left ventricle is normal in size and thickness. Systolic ejection fraction is 55-60% with normal wall motion. 2. There are no significant valvular dysfunction seen. 3. Right ventricle is normal in size and systolic function. 4. Estimated right ventricular systolic pressure is 23 mm Hg. Dictated by: VIOLETA ABREU MD on 01/30/2024 at 10:33 Approved by: VIOLETA ABREU MD on 01/30/2024 at 10:58 Normal [facility] ALLERGEN FOOD ADULT/CHILD [C CL]on 01-21-2024 Clam <0.35 Normal <0.35 [facility] Comment on above: Performed By: #### 2 16215 #### [facility],[address] [place] [address] Clam-Class Class 0 Normal Class 0 [facility] Comment on above: Performed By: #### 2 74498 #### [facility],[address] [place] [address] Codfish <0.35 Normal <0.35 [facility] Comment on above: Performed By: #### 2 50639 #### [facility],[address] [place] [address] Codfish-Class Class 0 Normal Class 0 [facility] Comment on above: Performed By: #### 2 12309 #### [facility],[address] [place], [place] [id number] [place] Class Class 0 Normal Class 0 [facility] Comment on above: Performed By: #### 2 30000 #### [facility],[address] [place] [address] [place] IgE <0.35 Normal <0.35 [facility] Comment on above: Performed By: #### 2 77377 #### [facility],[address] [place] [address] Egg White Class Class 0 Normal Class 0 [facility] Comment on above: Result Comment: [facility] [address] [place] [address] Vj Oden III, M.D. [id number] Performed By: #### 2 71770 #### [facility],[address] [place] [address] 79829 Egg White IgE <0.35 Normal <0.35 [facility] Comment on above: Performed By: #### 2 67688 #### [facility],[address] [place] [address] 90694 Milk, Cow Class Class 0 Normal Class 0 [facility] Comment on above: Performed By: #### 2 36775 #### [facility],[address] [place], [place] [address] Milk, Cow IgE <0.35 Normal <0.35 [facility] Comment on above: Performed By: #### 2 29258 #### [facility],[address] [place] [address] Peanut Class Class 0 Normal Class 0 [facility] Comment on above: Performed By: #### 2 91230 #### [facility],[address] [place] [address] Peanut IgE <0.35 Normal <0.35 [facility] Comment on above: Performed By: #### 2 17932 #### [facility],[address] [place] [address] Scallop <0.35 Normal <0.35 [facility] Comment on above: Performed By: #### 2 38969 #### [facility],[address] [place] [address] Scallop-Class Class 0 Normal Class 0 [facility] Comment on above: Performed By: #### 2 52202 #### [facility],[address] [place], [place] [id number] Shrimp Class Class 0 Normal Class 0 [facility] Comment on above: Performed By: #### 2 29896 #### [facility],[address] [place] [address] 85105 Shrimp IgE <0.35 Normal <0.35 [facility] Comment on above: Performed By: #### 2 80253 #### [facility],[address] [place] [address] Soybean Class Class 0 Normal Class 0 [facility] Comment on above: Performed By: #### 2 51952 #### [facility],[address] [place] [address] Soybean IgE <0.35 Normal <0.35 [facility] Comment on above: Performed By: #### 2 69478 #### [facility],[address] [place] [address] [place], IgE <0.35 Normal <0.35 [facility] Comment on above: Performed By: #### 2 96518 #### [facility],[address] [place] [address] [place]-Class Class 0 Normal Class 0 [facility] Comment on above: Performed By: #### 2 13946 #### [facility],[address] [place] [address] Wheat Class Class 0 Normal Class 0 [facility] Comment on above: Performed By: #### 2 84542 #### [facility],[address] [place] [address] Wheat IgE <0.35 Normal <0.35 [facility] Comment on above: Performed By: #### 2 71396 #### [facility],[address] [place] [address] ALGN FOOD ADULT/CHILDon 12-23 Clam IgE Qn (S) <0.35 Normal <0.35 [facility] Comment on above: Order Comment: Speci men Type: BLOOD SPECIMEN Ordering Facility: [facility] Address: [address] [address] Performed By: #### F OODAD #### [facility] CLIA [id number] [address] [place] [address] [place] Clam IgE RAST class (S) Class 0 Normal Class 0 [facility] Comment on above: Order Comment: Speci men Type: BLOOD SPECIMEN Ordering Facility: [facility] Address: [address] [place] [address] Performed By: #### F OODAD #### [facility] CLIA [id number] [address] [place] [address] [place] Codfish IgE Qn (S) <0.35 Normal <0.35 [facility] Comment on above: Order Comment: Speci men Type: BLOOD SPECIMEN Ordering Facility: [facility] Address: [address] [address] Performed By: #### F OODAD #### [facility] CLIA [id number] [address] [place] [address] [place] Codfish IgE RAST class (S) Class 0 Normal Class 0 [facility] Comment on above: Order Comment: Speci men Type: BLOOD SPECIMEN Ordering Facility: [facility] Address: [address] [place] [address] Performed By: #### F OODAD #### [facility] CLIA [id number] [address] [place] [address] [place] IgE Qn (S) <0.35 Normal <0.35 [facility] Comment on above: Order Comment: Speci men Type: BLOOD SPECIMEN Ordering Facility: [facility] Address: [address] [address] Performed By: #### F OODAD #### [facility] CLIA [id number] [address] [place] [address] [place] IgE RAST class (S) Class 0 Normal Class 0 [facility] Comment on above: Order Comment: Speci men Type: BLOOD SPECIMEN Ordering Facility: [facility] Address: [address] [address] Performed By: #### F OODAD #### [facility] CLIA [id number] [address] [place] [address] [place] Cow milk IgE Qn (S) <0.35 Normal <0.35 [facility] Comment on above: Order Comment: Speci men Type: BLOOD SPECIMEN Ordering Facility: [facility] Address: [address] [address] Performed By: #### F OODAD #### [facility] CLIA [id number] [address] [place] [address] [place] Cow milk IgE RAST class (S) Class 0 Normal Class 0 [facility] Comment on above: Order Comment: Speci men Type: BLOOD SPECIMEN Ordering Facility: [facility] Address: [address] [address] Performed By: #### F OODAD #### [facility] CLIA [id number] [facility] [address] [place] Egg white IgE Qn (S) <0.35 Normal <0.35 [facility] Comment on above: Order Comment: Speci men Type: BLOOD SPECIMEN Ordering Facility: [facility] Address: [address] [address] Performed By: #### F OODAD #### [facility] CLIA [id number] [facility] [place] [address] [place] Egg white IgE RAST class (S) Class 0 Normal Class 0 [facility] Comment on above: Order Comment: Speci men Type: BLOOD SPECIMEN Ordering Facility: [facility] Address: [address] [place] [address] Performed By: #### F OODAD #### [facility] CLIA [id number] [address] [place] [address] [place] Peanut IgE Qn (S) <0.35 Normal <0.35 [facility] Comment on above: Order Comment: Speci men Type: BLOOD SPECIMEN Ordering Facility: [facility] Address: [address] [place] [address] Performed By: #### F OODAD #### [facility] CLIA [id number] [address] [place] [address] [place] Peanut IgE RAST class (S) Class 0 Normal Class 0 [facility] Comment on above: Order Comment: Speci men Type: BLOOD SPECIMEN Ordering Facility: [facility] Address: [address] [place] [place] [address] Performed By: #### F OODAD #### [facility] CLIA [id number] [address] [place] [address] [place] Scallop IgE Qn (S) <0.35 Normal <0.35 [facility] Comment on above: Order Comment: Speci men Type: BLOOD SPECIMEN Ordering Facility: [facility] Address: [address] [place] [address] Performed By: #### F OODAD #### [facility] CLIA [id number] [address] [place] [address] [place] Scallop IgE RAST class (S) Class 0 Normal Class 0 [facility] Comment on above: Order Comment: Speci men Type: BLOOD SPECIMEN Ordering Facility: [facility] Address: [address] [place] [address] Performed By: #### F OODAD #### [facility] CLIA [id number] [address] [place] [address] [place] Shrimp IgE Qn (S) <0.35 Normal <0.35 [facility] Comment on above: Order Comment: Speci men Type: BLOOD SPECIMEN Ordering Facility: [facility] Address: [address] [place] [address] Performed By: #### F OODAD #### [facility] CLIA [id number] [address] [id number] [address] [place] Shrimp IgE RAST class (S) Class 0 Normal Class 0 [facility] Comment on above: Order Comment: Speci men Type: BLOOD SPECIMEN Ordering Facility: [facility] Address: [address] [place] [address] Performed By: #### F OODAD #### [facility] CLIA [id number] [address] [place] [address] [place] Soybean IgE Qn (S) <0.35 Normal <0.35 [facility] Comment on above: Order Comment: Speci men Type: BLOOD SPECIMEN Ordering Facility: [facility] Address: [address] [place] [address] Performed By: #### F OODAD #### [facility] CLIA [id number] [address] [place] [address] [place] Soybean IgE RAST class (S) Class 0 Normal Class 0 [facility] Comment on above: Order Comment: Speci men Type: BLOOD SPECIMEN Ordering Facility: [facility] Address: [address] [place] [address] Performed By: #### F OODAD #### [facility] CLIA [id number] [address] [place] [address] [place] Jefferson IgE Qn (S) <0.35 Normal <0.35 [facility] Comment on above: Order Comment: Speci men Type: BLOOD SPECIMEN Ordering Facility: [facility] Address: [address] [place] [address] Performed By: #### F OODAD #### [facility] CLIA [id number] [address] [place] [address] [place] Jefferson IgE RAST class (S) Class 0 Normal Class 0 [facility] Comment on above: Order Comment: Speci men Type: BLOOD SPECIMEN Ordering Facility: [facility] Address: [address] [place] [address] Performed By: #### F OODAD #### [facility] CLIA [id number] [facility] [place] [address] [place] Wheat IgE Qn (S) <0.35 Normal <0.35 [facility] Comment on above: Order Comment: Speci men Type: BLOOD SPECIMEN Ordering Facility: [facility] Address: [address] [place] [address] Performed By: #### F OCHELOD #### [facility] CLIA [id number] [address] [place] [address] [place] Wheat IgE RAST class (S) Class 0 Normal Class 0 [facility] Comment on above: Order Comment: Speci men Type: BLOOD SPECIMEN Ordering Facility: [facility] Address: [address] [place] [address] Performed By: #### F OCHELOD #### [facility] CLIA [id number] [address] [place] [address] OF [place] BMP with eGFRon 01-19-2024 AGE 43 years Normal [facility] Comment on above: Performed By: #### 2 21131 #### [facility],[address] [place] [address] Anion gap [Moles/Vol] 16 mmol/L Normal 10 - 20 [facility] Comment on above: Performed By: #### 2 23615 #### [facility],[address] [place] [address] BMP with eGFR Normal [facility] Comment on above: Result Comment: BASI C METABOLIC PANEL Performed By: #### 2 74316 #### [address] [address] Calcium [Mass/Vol] 8.8 mg/dL Normal 8.5 - 10.1 [facility] Comment on above: Performed By: #### 2 12133 #### [facility],[address] [place] [address]999 Chloride [Moles/Vol] 100 mmol/L Normal 98 - 107 [facility] Comment on above: Performed By: #### 2 72556 #### [facility],[address] [place] [address]167 CO2 [Moles/Vol] 22.9 mmol/L Normal 21.0 - 32.0 [facility] Comment on above: Performed By: #### 2 98280 #### [facility],[address] [place] [address] Creatinine [Mass/Vol] 1.19 mg/dL Normal 0.70 - 1.30 [facility] Comment on above: Performed By: #### 2 70342 #### [facility],[address] [place] [address] GFR/1.73 sq M.predicted among non-blacks MDRD (S/P/Bld) [Vol rate/Area] mL/min/{1.73_m2} Normal 60 - 999 [facility] Comment on above: Performed By: #### 2 82859 #### [address] [address] Result Comment: ACCO RDING TO THE NATIONAL KIDNEY DISEASE EDUCATION PROGRAM(NKDE), A NORMAL eGFR IS A VALUE GREATER THAN OR EQUAL TO 60 ML/MIN/1.73 SQ METERS. CHRONIC KIDNEY DISEASE: <60mL/MIN/1.73 SQ METERS KIDNEY FAILURE: <15mL/MIN/1.73 SQ METERS THIS TEST SHOULD ONLY BE USED FOR PATIENTS 18 YEARS OF AGE AND OLDER. Glucose [Mass/Vol] 210 mg/dL High 74 - 106 [facility] Comment on above: Performed By: #### 2 25296 #### [address] [address] Potassium [Moles/Vol] 3.8 mmol/L Normal 3.5 - 5.1 [facility] Comment on above: Performed By: #### 2 54509 #### [facility],[address] [place] [address] Sodium [Moles/Vol] 135 mmol/L Low 136 - 145 [facility] Comment on above: Performed By: #### 2 46129 #### [facility],[address] [place] [address] Urea nitrogen [Mass/Vol] 19 mg/dL High 7 - 18 [facility] Comment on above: Performed By: #### 2 99931 #### [facility],[address] [place] [address] CBC + DIFFon 01-19-2024 Baso # 0.02 x10EE3/UL Normal 0.00 - 0.10 [facility] Comment on above: Performed By: #### 2 48054 #### [facility],[address] [place] [address] Basophils/100 WBC (Bld) 0.2 % Normal 0.0 - 2.0 [facility] Comment on above: Performed By: #### 2 16820 #### [facility],[address] [place] [address] CBC + DIFF Normal [facility] Comment on above: Result Comment: CBC- COMPLETE BLOOD COUNT Performed By: #### 2 63750 #### [facility],[address] [place] [address] EO # 0.03 x10EE3/UL Normal 0.00 - 0.50 [facility] Comment on above: Performed By: #### 2 71227 #### [facility],[address] [place] [address] Eosinophils/100 WBC (Bld) 0.4 % Normal 0.0 - 7.0 [facility] Comment on above: Performed By: #### 2 54421 #### [facility],[address] [place] [address] Erythrocyte distribution width (RBC) [Ratio] 14.3 % Normal 12.0 - 15.6 [facility] Comment on above: Performed By: #### 2 14009 #### [facility],[address] [place] [address] Hematocrit (Bld) [Volume fraction] 48.5 % Normal 40.0 - 52.0 [facility] Comment on above: Performed By: #### 2 12253 #### [facility],[address] [place] [address] Hemoglobin (Bld) [Mass/Vol] 16.6 g/dL Normal 13.0 - 17.5 [facility] Comment on above: Performed By: #### 2 77713 #### [facility],[address] [place] [address] Lymph # 0.99 x10EE3/UL Normal 0.80 - 2.80 [facility] Comment on above: Performed By: #### 2 23812 #### [facility],[address] [place] [address]341 Lymphocytes/100 WBC (Bld) 13.9 % Low 20.0 - 45.0 [facility] Comment on above: Performed By: #### 2 43772 #### [facility],[address] [place] [address] MANUAL DIFF N/A Normal [facility] Comment on above: Performed By: #### 2 93512 #### [facility],[address] [place] [address] 12399 MCH (RBC) [Entitic mass] 30 pg Normal 27 - 33 [facility] Comment on above: Performed By: #### 2 33682 #### [facility],[address] [place] [address]33 MCHC 34 X10 3 Normal 32 - 36 [facility] Comment on above: Performed By: #### 2 21168 #### [facility],[address] [place] [address]59 MCV (RBC) [Entitic vol] 87 fL Normal 81 - 98 [facility] Comment on above: Performed By: #### 2 50922 #### [facility],[address] [place] [address] Stanton # 0.16 x10EE3/UL Low 0.20 - 1.00 [facility] Comment on above: Performed By: #### 2 08132 #### [facility],[address] [place] [address] MONOS % 2.2 % Normal 0.0 - 10.0 [facility] Comment on above: Performed By: #### 2 38506 #### [facility],[address] [place] [address] Morphology Paco (Bld) [Interp] N/A Normal [facility] Comment on above: Performed By: #### 2 97579 #### [facility],[address] [place], [place] [address] Neut # 5.96 x10EE3/UL Normal 1.50 - 7.10 [facility] Comment on above: Performed By: #### 2 80022 #### [facility],[address] [place] [address] Neutrophils/100 WBC (Bld) 83.3 % High 46.0 - 76.0 [facility] Comment on above: Performed By: #### 2 30285 #### [facility],[address] [place] [address] PLATELET 234 x10EE3/UL Normal 150 - 450 [facility] Comment on above: Performed By: #### 2 71937 #### [facility],[address] [place] [address] Platelet mean volume (Bld) [Entitic vol] 8.0 fL Normal 6.4 - 10.5 [facility] Comment on above: Result Comment: AUTO MATED DIFFERENTIAL Performed By: #### 2 35066 #### [facility],[address] [place] [address]248 RBC 5.56 x 10EE6/UL Normal 4.50 - 6.00 [facility] Comment on above: Performed By: #### 2 28699 #### [facility],[address] [place] [address]36 WBC 7.2 x 10EE3/UL Normal 4.5 - 10.8 [facility] Comment on above: Performed By: #### 2 08741 #### [facility],[address] [place] [address] MAGNESIUMon 01-19-2024 Magnesium [Mass/Vol] 2.1 mg/dL Normal 1.8 - 2.4 [facility] Comment on above: Performed By: #### 2 64830 #### [facility],[address] [place] [address]99 NT-proBNPon 01-19-2024 Natriuretic peptide B (Bld) [Mass/Vol] 8 pg/mL Normal 0 - 125 [facility] Comment on above: Performed By: #### 2 37723 #### [facility],[address] [place] [address] Testost SerPl-mCncon 024 Testosterone [Mass/Vol] 298 ng/dL Normal 193-824 [facility] Comment on above: Order Comment: Speci men Type: BLOOD SPECIMEN Ordering Facility: [facility] Address: [address] [place] [address] Result Comment: A te stosterone level in the 193-320 ng/dL range with associated clinical symptoms is considered low and may indicate hypogonadism (from AZJ 2010 363:123-135). Results >320 ng/dL are considered normal. Performed By: #### 2 986-8 #### [facility] CLIA [id number] [address] [place] [address] [place] Testost SerPl-mCncon 024 Testosterone [Mass/Vol] 320 ng/dL Normal 193-824 [facility] Comment on above: Order Comment: Speci men Type: BLOOD SPECIMEN Ordering Facility: [facility] Address: [address] [place] [address] Result Comment: A te stosterone level in the 193-320 ng/dL range with associated clinical symptoms is considered low and may indicate hypogonadism (from NEJ 2010 363:123-135). Results >320 ng/dL are considered normal. Performed By: #### 2 986-8 #### [facility] CLIA [id number] [address] [place] [address] [place] CT SOFT TISSUE NECK W/ CONTR Caridad 06-13-2023 CT SOFT TISSUE NECK W/ CONTRAST ORIGINAL EXAMINATION: CT neck with intravenous contrast TECHNIQUE: CT of the neck was performed following the uneventful administration of Omnipaque 300 intravenous contrast. Axial images were obtained through the neck with multiplanar reformats. Low dose CT acquisition technique included one of the following options: 1. Automated exposure control, 2. Adjustment of the MA and/or KV according to patient size, or 3. Use of iterative reconstruction. DICOM images are available. COMPARISON: CT neck 12/01/2022, CTA neck 07/03/2022. 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 Biopsy of the right neck lymph nodes in August 2022 which revealed trace lymphoma cells FINDINGS: Soft tissues: No infectious/inflammatory process, mass, or abscess. Aerodigestive tract: No primary lesion identified within the nasopharynx, oropharynx, hypopharynx, larynx, and proximal trachea. Salivary glands: Unremarkable bilateral submandibular and parotid glands. Thyroid: Unremarkable. Lymph nodes: There are non-specific scattered sub-centimeter lymph nodes in the neck bilaterally. No pathologically enlarged or morphologically suspicious adenopathy. Ovoid right level IIB lymph node measures 1 cm in long axis, stable since 07/03/2022. A right 1 B level lymph node lateral to the submandibular gland measures 1.2 cm, stable. Vessels: Unremarkable. Bones: Mild degenerative changes of the cervical spine. Teeth: There is redemonstration of unreupted last right maxillary molar tooth with cortical dehiscence and surrounding mucosal thickening as well as air locules, not significantly changed since prior exam. Heterotopic bone within the right inferior maxillary sinus. Similar appearing osseous defect of right lateral alveolar ridge measuring up to 12 mm. Visualized lung apices: Clear. Visualized brain parenchyma: No acute pathology. Additional comment: Mucous retention cyst in the right maxillary sinus.. IMPRESSION: 1. No significant interval change since prior exam. 2. No pathologically enlarged lymph nodes. 3. 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 I have personally reviewed the images of this examination and agree with the resident's findings and interpretation. Interpreted by: Donavon Walden MD Preliminary Report By: Evelyncoral Bud Electronically signed By Donavon Walden MD Dictated Date: 06/13/2023 2:05:15 PM Prelim Date: 06/13/2023 3:05:11 PM Sign Date: 06/13/2023 3:05:11 PM Ordering Provider: [facility]) CT THORAX W/ CONTRASTon 05-25 CT THORAX W/ CONTRAST ORIGINAL EXAMINATION: CT OF THE CHEST WITH CONTRAST 06/12/2023 3:55 pm TECHNIQUE: CT of the chest was performed with the administration of intravenous contrast. Multiplanar reformatted images are provided for review. Automated exposure control, iterative reconstruction, and/or weight based adjustment of the mA/kV was utilized to reduce the radiation dose to as low as reasonably achievable. COMPARISON: December 01, 2022 HISTORY: ORDERING SYSTEM PROVIDED HISTORY: Reason for Exam: follow up F/U SWOLLEN LN'S IN CHEST SINCE 2021. FINDINGS: Minor degenerative changes are noted in the spine. No other osseous abnormality. Small scattered areas of pulmonary and pleural scarring are noted. No focal infiltrate is visible and there is no significant nodule seen. No pleural fluid. A small amount of pericardial recess fluid is evident. No mediastinal adenopathy seen. Incidental prominent fatty infiltration of the liver noted. No additional contributory abnormality. IMPRESSION: No acute process. No adenopathy seen. Fatty liver. Interpreted by: John Miles MD Preliminary Report By: John Miles MD Electronically signed By John Miles MD Dictated Date: 06/12/2023 3:57:20 PM Prelim Date: 06/12/2023 4:00:19 PM Sign Date: 06/12/2023 4:00:19 PM Ordering Provider: [facility]) CT SOFT TISSUE NECK W/ CONTR Caridad 12-05-2022 CT SOFT TISSUE NECK W/ CONTRAST ORIGINAL EXAMINATION: CT neck with intravenous contrast TECHNIQUE: CT of the neck was performed following the uneventful administration of Omnipaque 300 intravenous contrast. Axial images were obtained through the neck with multiplanar reformats. Low dose CT acquisition technique included one of the following options: 1. Automated exposure control, 2. Adjustment of the MA and/or KV according to patient size, or 3. Use of iterative reconstruction. DICOM images are available. COMPARISON: None. HISTORY: ORDERING SYSTEM PROVIDED HISTORY: Reason for Exam: LYMPHADENOPATHY BB MARKER ON NECK FINDINGS: A marker was placed over the left sternocleidomastoid muscle at the level of the thyroid cartilage designating the area of interest. Soft tissues: No infectious/inflammatory process, mass, or abscess. No soft tissue mass or fluid collection corresponds to the area of interest. Should a palpable area persist further evaluation with ultrasound is advised. Aerodigestive tract: No primary lesion identified within the nasopharynx, oropharynx, hypopharynx, larynx, and proximal trachea. Salivary glands: Unremarkable bilateral submandibular and parotid glands. Variation bilateral accessory parotid tissue noted. Thyroid: Unremarkable. Lymph nodes : There are non-specific scattered sub-centimeter lymph nodes in the neck bilaterally. No pathologically enlarged or morphologically suspicious adenopathy. Vessels: Unremarkable. Bones: No acute fracture or significant chronic height loss. There is straightening of the normal cervical lordosis. Refer to section under additional comments. Visualized lung apices: Clear. Visualized brain parenchyma: No acute pathology. Paranasal sinuses: Small right maxillary sinus retention cyst. The bilateral carotid canals are in contact with the posterior tesfaye of the sphenoid sinus. Additional comment: An unerupted last right maxillary molar tooth with surrounding mucosal thickening and air is present. Heterotopic bone within the inferior right maxillary sinus is noted. There is an osseous defect of the right lateral elevator ridge measuring up to 12 mm. IMPRESSION: 1. No findings corresponding to the patient's left neck lump. Should a palpable area persist further evaluation with ultrasound is advised. 2. Unerupted right last maxillary molar with surrounding fluid air possibly reflecting infection. An associated osseous defect involving the right lateral alveolar ridge and heterotopic bone formation extending into the inferior right maxillary sinus present. Consultation with dentistry is advised. 3. Small right maxillary sinus retention cyst. Interpreted by: Donavon Walden MD Preliminary Report By: Donavon Walden MD Electronically signed By Donavon Walden MD Dictated Date: 12/05/2022 3:08:56 PM Prelim Date: 12/05/2022 3:25:35 PM Sign Date: 12/05/2022 3:25:35 PM Ordering Provider: KACI BILLINGSLEY [facility] [place] [facility] Out See Comments [facility]) Comment on above: Order Comment: Flow Cytometry Result Comment: Comp lete reference lab report scanned to EMR. Performed By: #### M ISC #### [place] [address] CT THORAX W/ CONTRASTon 11-21 CT THORAX W/ CONTRAST ORIGINAL HISTORY: Lymphadenopathy, lymph node biopsy COMPARISON: None is provided TECHNIQUE: Chest CT following uncomplicated administration of intravenous contrast, with sagittal and coronal reconstructions. This exam was performed according to our departmental dose optimization program, and includes the following measures where applicable: automated exposure control, adjustment of the mAs and/or kVp according to patient size and/or exam, and an iterative reconstruction algorithm. FINDINGS: The lungs are clear. There is no lymphadenopathy. Chest wall structures are unremarkable. There is fatty infiltration of the liver. IMPRESSION: Unremarkable examination of the chest. Interpreted by: Justina Miller MD Preliminary Report By: Justina Miller MD Electronically signed By Justina Miller MD Dictated Date: 12/02/2022 4:04:29 PM Prelim Date: 12/02/2022 4:06:10 PM Sign Date: 12/02/2022 4:06:10 PM Ordering Provider: KACI BILLINGSLEY [facility]) Final Surgical Pathology Rep [facility] 10-12-2022 Final Surgical Pathology Report . Pathology Reports Accession: Collected Date/Time: Received Date/Time: Pathologist: [id number] 10/07/2022 08:07 EDT 10/10/2022 13:22 EDT MD [place] Final Surgical Pathology Report DIAGNOSIS: LYMPH NODE, RIGHT NECK, BIOPSY: - REACTIVE LYMPH NODE Comment: Stains for CD20, CD3 and CD5 demonstrated a mixture of reactive B and T lymphocytes. Bcl-2 and BCL6 highlight occasional reactive germinal centers. CD10 stains the germinal centers. CD30 stains occasional reactive lymphocytes. Cyclin D1 is unremarkable. Case reviewed with Dr. Ruiz. COMMENT: [facility] - [id number] CLINICAL INFORMATION: LOCALIZED ENLARGED LYMPH NODES SPECIMEN: A RIGHT NECK LYMPH NODE GROSS DESCRIPTION: A. Received in formalin, labeled with the patients name, Case #[id number], and right neck lymph node is a falk round lymph node measuring 1.5 x 1.5 x 0.8 cm. TS - 1 Dictated by DONAVON VELIZ MICROSCOPIC DESCRIPTION: The microscopic examination is performed, except in the case of Gross Only. Electronically Signed by Pathology Report verified by [facility] [place] MD Sign out Date: 10/12/2022 13:40 Performing Lab: [facility], [address] [place] [address] Pathology Dept Normal [facility] ([place]) LABORATORYOrdered By: Larry Garcia on 07-06-2022 Blood Glucose Testing Reason Routine (07/06/22 7:26 AM) [facility] Work Phone: Glucose [Mass/Vol] 155 mg/dL Invalid Interpretation Code 70 - 110 mg/dL [facility] Work Phone: LABORATORYOrdered By: SYSTEM SYSTEM on 07-06-2022 Calcium [Mass/Vol] 9.2 mg/dL Invalid Interpretation Code 8.7 - 10.4 mg/dL ADM SS Chloride [Moles/Vol] 104 mmol/L Invalid Interpretation Code 98 - 110 mEq/L ADM SS CK [Catalytic activity/Vol] 250 U/L Invalid Interpretation Code 7 - 185 U/L ADM SS CO2 [Moles/Vol] 25 mmol/L Invalid Interpretation Code 22 - 32 mEq/L ADM SS Creatinine [Mass/Vol] 0.70 mg/dL Invalid Interpretation Code 0.60 - 1.40 mg/dL ADM SS Electrolyte Balance 6.0 mEq/L Invalid Interpretation Code 4.0 - 15.0 mEq/L AH ADM SS GFR/1.73 sq M.predicted among blacks MDRD (S/P/Bld) [Vol rate/Area] ml/min/1.73sqm Invalid Interpretation Code Chemistry S GFR/1.73 sq M.predicted among non-blacks MDRD (S/P/Bld) [Vol rate/Area] ml/min/1.73sqm Invalid Interpretation Code Chemistry S Glucose [Mass/Vol] 138 mg/dL Invalid Interpretation Code 70 - 110 mg/dL ADM SS Potassium [Moles/Vol] 4.2 mmol/L Invalid Interpretation Code 3.5 - 5.0 mEq/L ADM SS Sodium [Moles/Vol] 135 mmol/L Invalid Interpretation Code 136 - 145 mEq/L ADM SS Urea nitrogen [Mass/Vol] 14.0 mg/dL Invalid Interpretation Code 8.0 - 22.0 mg/dL ADM SS Urea nitrogen/Creatinine [Mass ratio] 20.0 ratio Invalid Interpretation Code 10.0 - 22.0 ratio ADM SS LABORATORYOrdered By: Larry Garcia on 07-05-2022 Blood Glucose Testing Reason Routine (07/05/22 8:46 PM) [facility] Work Phone: Glucose [Mass/Vol] 134 mg/dL Invalid Interpretation Code 70 - 110 mg/dL [facility] Work Phone: Blood Glucose Testing Reason Routine (07/05/22 11:54 AM) [facility] Work Phone: LABORATORYOrdered By: Del Jane on 07-05-2022 Glucose [Mass/Vol] 114 mg/dL Invalid Interpretation Code 70 - 110 mg/dL [facility] Work Phone: LABORATORYOrdered By: SYSTEM SYSTEM on 07-05-2022 Basophils (Bld) [#/Vol] 0.0 103/mcL Invalid Interpretation Code 0.0 - 0.3 10^3/mcL Workflow SS Basophils/100 WBC (Bld) 1.0 % Invalid Interpretation Code 0.0 - 2.5 % Workflow SS Calcium [Mass/Vol] 9.4 mg/dL Invalid Interpretation Code 8.7 - 10.4 mg/dL ADM SS Chloride [Moles/Vol] 103 mmol/L Invalid Interpretation Code 98 - 110 mEq/L ADM SS CK [Catalytic activity/Vol] 283 U/L Invalid Interpretation Code 7 - 185 U/L ADM SS CO2 [Moles/Vol] 24 mmol/L Invalid Interpretation Code 22 - 32 mEq/L ADM SS Creatinine [Mass/Vol] 0.65 mg/dL Invalid Interpretation Code 0.60 - 1.40 mg/dL ADM SS Electrolyte Balance 8.0 mEq/L Invalid Interpretation Code 4.0 - 15.0 mEq/L ADM SS Eosinophils (Bld) [#/Vol] 0.1 103/mcL Invalid Interpretation Code 0.0 - 0.7 10^3/mcL AH Workflow SS Eosinophils/100 WBC (Bld) 2.2 % Invalid Interpretation Code 0.0 - 6.0 % AH Workflow SS Erythrocyte distribution width (RBC) [Ratio] 14.4 % Invalid Interpretation Code 11.5 - 15.5 % AH Workflow SS GFR/1.73 sq M.predicted among blacks MDRD (S/P/Bld) [Vol rate/Area] ml/min/1.73sqm Invalid Interpretation Code Chemistry S GFR/1.73 sq M.predicted among non-blacks MDRD (S/P/Bld) [Vol rate/Area] ml/min/1.73sqm Invalid Interpretation Code Chemistry S Glucose [Mass/Vol] 149 mg/dL Invalid Interpretation Code 70 - 110 mg/dL ADM SS Hematocrit (Bld) [Volume fraction] 45.7 % Invalid Interpretation Code 40.0 - 52.0 % AH Workflow SS Hemoglobin (Bld) [Mass/Vol] 15.9 G/dL Invalid Interpretation Code 13.0 - 17.5 G/dL AH Workflow SS Lymphocytes (Bld) [#/Vol] 1.8 103/mcL Invalid Interpretation Code 0.9 - 4.3 10^3/mcL AH Workflow SS Lymphocytes/100 WBC (Bld) 36.3 % Invalid Interpretation Code 20.0 - 40.0 % AH Workflow SS MCH (RBC) [Entitic mass] 29.7 pg Invalid Interpretation Code 27.0 - 33.0 pg AH Workflow SS MCHC 34.9 G/dL Invalid Interpretation Code 32.0 - 36.0 G/dL AH Workflow SS MCV (RBC) [Entitic vol] 85.3 fL Invalid Interpretation Code 81.0 - 100.0 fL AH Workflow SS Monocytes (Bld) [#/Vol] 0.3 103/mcL Invalid Interpretation Code 0.1 - 1.4 10^3/mcL AH Workflow SS Monocytes/100 WBC (Bld) 6.3 % Invalid Interpretation Code 2.0 - 13.0 % AH Workflow SS Neutrophils (Bld) [#/Vol] 2.7 103/mcL Invalid Interpretation Code 2.3 - 8.1 10^3/mcL AH Workflow SS Neutrophils/100 WBC (Bld) 54.2 % Invalid Interpretation Code 50.0 - 75.0 % AH Workflow SS Platelet mean volume (Bld) [Entitic vol] 7.2 fL Invalid Interpretation Code 6.4 - 10.5 fL AH Workflow SS Platelets (Bld) [#/Vol] 227 103/mcL Invalid Interpretation Code 150 - 450 10^3/mcL AH Workflow SS Potassium [Moles/Vol] 4.1 mmol/L Invalid Interpretation Code 3.5 - 5.0 mEq/L AH ADM SS RBC (Bld) [#/Vol] 5.36 106/mcL Invalid Interpretation Code 4.50 - 6.00 10^6/mcL AH Workflow SS Sodium [Moles/Vol] 135 mmol/L Invalid Interpretation Code 136 - 145 mEq/L ADM SS Urea nitrogen [Mass/Vol] 16.0 mg/dL Invalid Interpretation Code 8.0 - 22.0 mg/dL ADM SS Urea nitrogen/Creatinine [Mass ratio] 24.6 ratio Invalid Interpretation Code 10.0 - 22.0 ratio AH ADM SS WBC (Bld) [#/Vol] 4.9 103/mcL Invalid Interpretation Code 4.5 - 10.8 10^3/mcL Workflow SS LABORATORYOrdered By: Ayla ochoa on 07-05-2022 Cholesterol [Mass/Vol] 276 mg/dL Invalid Interpretation Code 50 - 199 mg/dL ADM SS Cholesterol in HDL [Mass/Vol] 34 mg/dL Invalid Interpretation Code 40 - 59 mg/dL ADM SS Cholesterol in LDL [Mass/Vol] Not Valid Invalid Interpretation Code 0 - 129 ADM SS Comment on above: Result Comment: Trig lyceride >400 invalidates the calculated LDL. Triglyceride [Mass/Vol] 800 mg/dL Invalid Interpretation Code 3 - 149 mg/dL ADM SS LABORATORYOrdered By: Joseph Clark on 07-05-2022 Appearance (U) Hazy *ABN* (07/05/22 2:36 AM) Invalid Interpretation Code Clear AH Auto Urine SS Bilirubin Ql (U) Negative (07/05/22 2:36 AM) Invalid Interpretation Code Neg-Trace AH Auto Urine SS Color (U) Yellow (07/05/22 2:36 AM) Invalid Interpretation Code AH Auto Urine SS Glucose Test strip (U) [Mass/Vol] >=1000 mg/dL Invalid Interpretation Code Negativemg/ dL Auto Urine SS Hemoglobin Auto test strip (U) [Mass/Vol] Negative (07/05/22 2:36 AM) Invalid Interpretation Code Neg-Trace AH Auto Urine SS Ketones Ql (U) Trace mg/dL Invalid Interpretation Code Neg-Tracemg /dL AH Auto Urine SS UA Leuk Est Negative (07/05/22 2:36 AM) Invalid Interpretation Code Negative AH Auto Urine SS UA Nitrite Negative (07/05/22 2:36 AM) Invalid Interpretation Code Negative AH Auto Urine SS UA pH 6.0 (07/05/22 2:36 AM) Invalid Interpretation Code 5.0 - 8.0 AH Auto Urine SS UA Protein Negative Invalid Interpretation Code Negativemg/ dL AH Auto Urine SS UA RBC Negative Invalid Interpretation Code 0-2/HPF AH Auto Urine SS UA Spec Grav 1.025 (07/05/22 2:36 AM) Invalid Interpretation Code 1.006-1.029 AH Auto Urine SS UA Specimen Type Clean Catch (07/05/22 2:36 AM) Invalid Interpretation Code AH Auto Urine SS UA Squam Epithelial Rare /HPF Invalid Interpretation Code 0-20/HPF AH Auto Urine SS UA Urobilinogen 1.0 E.U./dL Invalid Interpretation Code 0.2-1.0E.U. /dL AH Auto Urine SS WBC LM.HPF (Urine sed) [#/Area] 0-2 /HPF Invalid Interpretation Code 0-5/HPF AH Auto Urine SS LABORATORYOrdered By: SYSTEM SYSTEM on 07-04-2022 Albumin BCP dye [Mass/Vol] 4.0 G/dL Invalid Interpretation Code 3.2 - 4.8 G/dL AH ADM SS Albumin/Globulin [Mass ratio] 1.2 {ratio} Invalid Interpretation Code 0.9 - 1.6 ratio AH ADM SS ALP [Catalytic activity/Vol] 84 U/L Invalid Interpretation Code 38 - 126 U/L AH ADM SS ALT No additional P-5'-P [Catalytic activity/Vol] 78 U/L Invalid Interpretation Code 12 - 55 U/L AH ADM SS AST [Catalytic activity/Vol] 45 U/L Invalid Interpretation Code 8 - 34 U/L AH ADM SS Basophils (Bld) [#/Vol] 0.0 103/mcL Invalid Interpretation Code 0.0 - 0.3 10^3/mcL AH Workflow SS Basophils/100 WBC (Bld) 0.6 % Invalid Interpretation Code 0.0 - 2.5 % Workflow SS Bili Indirect 0.7 mg/dL Invalid Interpretation Code 0.1 - 10.0 mg/dL Chemistry S Bilirubin [Mass/Vol] 0.80 mg/dL Invalid Interpretation Code 0.20 - 1.20 mg/dL ADM SS Bilirubin.conjugate d [Mass/Vol] 0.1 mg/dL Invalid Interpretation Code 0.0 - 0.4 mg/dL ADM SS Calcium [Mass/Vol] 9.8 mg/dL Invalid Interpretation Code 8.7 - 10.4 mg/dL ADM SS Chloride [Moles/Vol] 101 mmol/L Invalid Interpretation Code 98 - 110 mEq/L ADM SS CK [Catalytic activity/Vol] 365 U/L Invalid Interpretation Code 7 - 185 U/L ADM SS Comment on above: Result Comment: Spec imen slightly hemolyzed. CO2 [Moles/Vol] 28 mmol/L Invalid Interpretation Code 22 - 32 mEq/L ADM SS Creatinine [Mass/Vol] 0.90 mg/dL Invalid Interpretation Code 0.60 - 1.40 mg/dL ADM SS Electrolyte Balance 8.0 mEq/L Invalid Interpretation Code 4.0 - 15.0 mEq/L ADM SS Eosinophils (Bld) [#/Vol] 0.1 103/mcL Invalid Interpretation Code 0.0 - 0.7 10^3/mcL Workflow SS Eosinophils/100 WBC (Bld) 2.2 % Invalid Interpretation Code 0.0 - 6.0 % Workflow SS Erythrocyte distribution width (RBC) [Ratio] 14.4 % Invalid Interpretation Code 11.5 - 15.5 % Workflow SS GFR/1.73 sq M.predicted among blacks MDRD (S/P/Bld) [Vol rate/Area] ml/min/1.73sqm Invalid Interpretation Code Chemistry S GFR/1.73 sq M.predicted among non-blacks MDRD (S/P/Bld) [Vol rate/Area] ml/min/1.73sqm Invalid Interpretation Code Chemistry S Globulin 3.3 G/dL Invalid Interpretation Code 1.5 - 3.8 G/dL ADM SS Glucose [Mass/Vol] 140 mg/dL Invalid Interpretation Code 70 - 110 mg/dL ADM SS Hematocrit (Bld) [Volume fraction] 47.7 % Invalid Interpretation Code 40.0 - 52.0 % AH Workflow SS Hemoglobin (Bld) [Mass/Vol] 16.6 G/dL Invalid Interpretation Code 13.0 - 17.5 G/dL AH Workflow SS Lymphocytes (Bld) [#/Vol] 1.9 103/mcL Invalid Interpretation Code 0.9 - 4.3 10^3/mcL AH Workflow SS Lymphocytes/100 WBC (Bld) 33.7 % Invalid Interpretation Code 20.0 - 40.0 % AH Workflow SS MCH (RBC) [Entitic mass] 30.2 pg Invalid Interpretation Code 27.0 - 33.0 pg AH Workflow SS MCHC 34.8 G/dL Invalid Interpretation Code 32.0 - 36.0 G/dL AH Workflow SS MCV (RBC) [Entitic vol] 86.8 fL Invalid Interpretation Code 81.0 - 100.0 fL AH Workflow SS Monocytes (Bld) [#/Vol] 0.4 103/mcL Invalid Interpretation Code 0.1 - 1.4 10^3/mcL AH Workflow SS Monocytes/100 WBC (Bld) 7.7 % Invalid Interpretation Code 2.0 - 13.0 % AH Workflow SS Neutrophils (Bld) [#/Vol] 3.1 103/mcL Invalid Interpretation Code 2.3 - 8.1 10^3/mcL AH Workflow SS Neutrophils/100 WBC (Bld) 55.8 % Invalid Interpretation Code 50.0 - 75.0 % AH Workflow SS Platelet mean volume (Bld) [Entitic vol] 7.1 fL Invalid Interpretation Code 6.4 - 10.5 fL AH Workflow SS Platelets (Bld) [#/Vol] 239 103/mcL Invalid Interpretation Code 150 - 450 10^3/mcL AH Workflow SS Potassium [Moles/Vol] 4.9 mmol/L Invalid Interpretation Code 3.5 - 5.0 mEq/L ADM SS Comment on above: Result Comment: Spec imen slightly hemolyzed. Protein [Mass/Vol] 7.3 G/dL Invalid Interpretation Code 5.7 - 8.2 G/dL ADM SS RBC (Bld) [#/Vol] 5.49 106/mcL Invalid Interpretation Code 4.50 - 6.00 10^6/mcL AH Workflow SS Sodium [Moles/Vol] 137 mmol/L Invalid Interpretation Code 136 - 145 mEq/L ADM SS Urea nitrogen [Mass/Vol] 13.0 mg/dL Invalid Interpretation Code 8.0 - 22.0 mg/dL AH ADM SS Urea nitrogen/Creatinine [Mass ratio] 14.4 ratio Invalid Interpretation Code 10.0 - 22.0 ratio AH ADM SS WBC (Bld) [#/Vol] 5.6 103/mcL Invalid Interpretation Code 4.5 - 10.8 10^3/mcL AH Workflow SS LABORATORYOrdered By: SYSTEM SYSTEM on 07-03-2022 Basophils (Bld) [#/Vol] 0.0 103/mcL Invalid Interpretation Code 0.0 - 0.3 10^3/mcL AH Workflow SS Basophils/100 WBC (Bld) 0.7 % Invalid Interpretation Code 0.0 - 2.5 % AH Workflow SS Eosinophils (Bld) [#/Vol] 0.1 103/mcL Invalid Interpretation Code 0.0 - 0.7 10^3/mcL AH Workflow SS Eosinophils/100 WBC (Bld) 1.8 % Invalid Interpretation Code 0.0 - 6.0 % AH Workflow SS Erythrocyte distribution width (RBC) [Ratio] 14.2 % Invalid Interpretation Code 11.5 - 15.5 % AH Workflow SS HbA1c (Bld) [Mass fraction] 6.6 % Invalid Interpretation Code 4.0 - 6.0 % AH Auto Chem SS Hematocrit (Bld) [Volume fraction] 47.6 % Invalid Interpretation Code 40.0 - 52.0 % AH Workflow SS Hemoglobin (Bld) [Mass/Vol] 16.5 G/dL Invalid Interpretation Code 13.0 - 17.5 G/dL AH Workflow SS Lymphocytes (Bld) [#/Vol] 2.0 103/mcL Invalid Interpretation Code 0.9 - 4.3 10^3/mcL AH Workflow SS Lymphocytes/100 WBC (Bld) 34.2 % Invalid Interpretation Code 20.0 - 40.0 % AH Workflow SS MCH (RBC) [Entitic mass] 29.6 pg Invalid Interpretation Code 27.0 - 33.0 pg AH Workflow SS MCHC 34.5 G/dL Invalid Interpretation Code 32.0 - 36.0 G/dL AH Workflow SS MCV (RBC) [Entitic vol] 85.8 fL Invalid Interpretation Code 81.0 - 100.0 fL AH Workflow SS Monocytes (Bld) [#/Vol] 0.4 103/mcL Invalid Interpretation Code 0.1 - 1.4 10^3/mcL AH Workflow SS Monocytes/100 WBC (Bld) 6.8 % Invalid Interpretation Code 2.0 - 13.0 % Workflow SS Neutrophils (Bld) [#/Vol] 3.3 103/mcL Invalid Interpretation Code 2.3 - 8.1 10^3/mcL Workflow SS Neutrophils/100 WBC (Bld) 56.5 % Invalid Interpretation Code 50.0 - 75.0 % Workflow SS Platelet mean volume (Bld) [Entitic vol] 7.2 fL Invalid Interpretation Code 6.4 - 10.5 fL Workflow SS Platelets (Bld) [#/Vol] 249 103/mcL Invalid Interpretation Code 150 - 450 10^3/mcL Workflow SS RBC (Bld) [#/Vol] 5.55 106/mcL Invalid Interpretation Code 4.50 - 6.00 10^6/mcL Workflow SS WBC (Bld) [#/Vol] 5.8 103/mcL Invalid Interpretation Code 4.5 - 10.8 10^3/mcL Workflow SS LABORATORYOrdered By: Nicolasa Francisco on 07-03-2022 Cholesterol [Mass/Vol] 282 mg/dL Invalid Interpretation Code 50 - 199 mg/dL ADM SS Cholesterol in HDL [Mass/Vol] 40 mg/dL Invalid Interpretation Code 40 - 59 mg/dL ADM SS Cholesterol in LDL [Mass/Vol] Not Valid Invalid Interpretation Code 0 - 129 ADM SS Comment on above: Result Comment: Trig lyceride >400 invalidates the calculated LDL. Triglyceride [Mass/Vol] 784 mg/dL Invalid Interpretation Code 3 - 149 mg/dL ADM SS Basophil percentageon 2021 Chloride [Moles/Vol] 106 mmol/L 98-107 [facility] Work Phone: Glucose [Mass/Vol] 188 mg/dL 74-106 [facility] Work Phone: Comment on above: Fasting Glucose resu lt greater than or equal to 126 mg/dL suggests DIABETES MELLITUS per A.D.A. criteria. Potassium [Moles/Vol] 3.6 mmol/L 3.5-5.1 [facility] Work Phone: Sodium [Moles/Vol] 135 mmol/L 136-145 [facility] Work Phone: Glucose Glucometer (BldC) [M ass/Vol]on 03-05-2022 Glucose [Mass/Vol] 208 mg/dL 74-106 [facility] Work Phone: Comment on above: MANAGEMENT OF PATIEN T CARE PER NURSING PROTOCOL Laboratory - Chemistry and C hemistry - challengeon 03-05-2022 CO2 [Moles/Vol] 23.0 mmol/L 21.0-32.0 [facility] Work Phone: Lipase [Catalytic activity/Vol] 441 U/L 73-393 [facility] Work Phone: Urea nitrogen/Creatinine [Mass ratio] 7.2 mg/mg 10-20 [facility] Work Phone: No Panel Informationon 03-05 Estimated Creatinine Clearance Calc 165.46 ml/min [facility] Work Phone: Estimated GFR (MDRD) Amer 162 mL/min >60 [facility] Work Phone: Comment on above: GFR Calc Estimated GFR (MDRD) Non-Af Amer 134 mL/min >60 [facility] Work Phone: Comment on above: Non- GFR Calc Serum or plasma calcium lux urement (mass/volume)on 03-05-2022 Calcium [Mass/Vol] 8.7 mg/dL 8.5-10.1 [facility] Work Phone: Serum or plasma creatinine m easurement (mass/volume)on 03-05-2022 Creatinine [Mass/Vol] 0.69 mg/dL 0.70-1.30 [facility] Work Phone: Comment on above: The validity of the calculated GFR & GFRAA in patients over 70 years has not been determined. Clinical correlation is essential. Serum or plasma urea nitroge n measurement (mass/volume)on 03-05-2022 Urea nitrogen [Mass/Vol] 5 mg/dL 7-18 [facility] Work Phone: Thin prep Papanicolaou smear with manual screeningon 03-05-2022 Thin prep Papanicolaou smear with manual screening 6 5-15 [facility] Work Phone: Absolute lymphocyte counton 03-04-2022 Lymphocytes Auto (Unsp spec) [#/Vol] 1.34 10*3/uL 0.83-4.51 [facility] Work Phone: [phone] Basophil percentageon 2021 Basophils/100 WBC (Bld) 0.2 % 0-1 [facility] Work Phone: [phone] Bilirubin [Mass/Vol] 0.60 mg/dL 0.20-1.00 [facility] Work Phone: [phone] Comment on above: For patients on eltr ombopag therapy, use of Dimension [place] TBIL is not recommended. Cholesterol [Mass/Vol] 290 mg/dL <200 [facility] Work Phone: [phone] Comment on above: <200 mg/dL Desirable 200-240 mg/dL Borderline >240 mg/dL High Risk Eosinophils/100 WBC (Bld) 1.1 % 0-5 [facility] Work Phone: [phone] Neutrophils (Bld) [#/Vol] 6.9 10*3/uL 2.0-7.7 [facility] Work Phone: [phone] Neutrophils/100 WBC (Bld) 76.3 % 47-70 [facility] Work Phone: [phone] Protein [Mass/Vol] 6.6 g/dL 6.4-8.2 [facility] Work Phone: [phone] Triglyceride [Mass/Vol] 1497 mg/dL <199 [facility] Work Phone: [phone] Comment on above: The drugs N-Acetylcy steine and Metamizole may falsely depress this assay. Serum Triglycerides Reference Interval Normal <150 mg/dL Borderline high 150 - 199 mg/dL High 200 - 499 mg/dL Very High > or = 500 mg/dL WBC (Bld) [#/Vol] 9.0 10*3/uL 4.4-11.0 [facility] Work Phone: Blood erythrocytes count (nu mber/volume)on 03-04-2022 RBC (Bld) [#/Vol] 4.82 10*6/uL 4.6-6.2 [facility] Work Phone: Blood hemoglobin measurement (mass/volume)on 03-04-2022 Hemoglobin (Bld) [Mass/Vol] 14.5 g/dL 13.0-16.5 [facility] Work Phone: Blood lymphocytes/100 leukoc yteson 03-04-2022 Lymphocytes/100 WBC (Bld) 14.9 % 19-41 [facility] Work Phone: Blood monocytes/100 leukocyt eson 03-04-2022 Monocytes/100 WBC (Bld) 6.9 % 0-10 [facility] Work Phone: Blood platelet mean volumeon 03-04-2022 Platelet mean volume (Bld) [Entitic vol] 9.7 fL 6.2-12.0 [facility] Work Phone: Determination of erythrocyte mean corpuscular volume (MCV)on 03-04-2022 MCV (RBC) [Entitic vol] 87.6 fL 80-94 [facility] Work Phone: Hematocrit Auto (Bld) [Volum e fraction]on 03-04-2022 Hematocrit (Bld) [Volume fraction] 42.2 % 40-54 [facility] Work Phone: Laboratory - Chemistry and C hemistry - challengeon 03-04-2022 ALP [Catalytic activity/Vol] 103 U/L 45-117 [facility] Work Phone: ALT [Catalytic activity/Vol] 32 U/L 16-61 [facility] Work Phone: [phone] Globulin (S) [Mass/Vol] 3.5 g/dL 2.2-4.2 [facility] Work Phone: Laboratory - Hematology and Cell countson 03-04-2022 Erythrocyte distribution width (RBC) [Entitic vol] 41.8 fL 35.1-43.9 [facility] Work Phone: [phone] Erythrocyte distribution width (RBC) [Ratio] 13.1 % 11.6-14.6 [facility] Work Phone: [phone] Immature granulocytes/100 WBC (Bld) 0.600 % 0.0-0.9 [facility] Work Phone: [phone] Comment on above: IG% - Immature Granu locytes (promyelocytes, myelocytes and metamyelocytes) > 1% indicates that a LEFT SHIFT is Present. MCH (RBC) [Entitic mass] 30.1 pg 27.0-32.0 [facility] Work Phone: [phone] Nucleated RBC/100 WBC (Bld) [Ratio] 0 % 0-5 [facility] Work Phone: [phone] MCHC Auto (RBC) [Mass/Vol]on 03-04-2022 MCHC (RBC) [Mass/Vol] 34.4 g/dL 32-36 [facility] Work Phone: [phone] Platelets bldon 03-04-2022 Platelets (Bld) [#/Vol] 254 10*3/uL 150-450 [facility] Work Phone: [phone] Serum or plasma albumin lux urement (mass/volume)on 03-04-2022 Albumin [Mass/Vol] 3.1 g/dL 3.2-5.0 [facility] Work Phone: [phone] Serum or plasma albumin/glob ulin mass ratioon 03-04-2022 Albumin/Globulin [Mass ratio] 0.9 {ratio} 0.9-2.4 [facility] Work Phone: [phone] Serum or plasma cholesterol in HDL measurement (mass/volume)on 03-04-2022 Cholesterol in HDL [Mass/Vol] 37 mg/dL >40 [facility] Work Phone: [phone] Comment on above: The drugs N-Acetylcy steine and Metamizole may falsely depress this assay. Reference Range HDL <40 mg/dL Low HDL Cholesterol HDL >or= 60 mg/dL High HDL Cholesterol Serum or plasma cholesterol in VLDL measurement (mass/volume)on 03-04-2022 Cholesterol in VLDL [Mass/Vol] TNP [facility] Work Phone: Comment on above: Test not performed Serum or plasma low density lipoprotein (LDL) cholesterol measurement (mass/volume)on 03-04-2022 Cholesterol in LDL [Mass/Vol] TNP [facility] Work Phone: Comment on above: Test not performed Thin prep Papanicolaou smear with manual screeningon 03-04-2022 Thin prep Papanicolaou smear with manual screening 11 U/L 15-37 [facility] Work Phone: Comment on above: Slight Hemolysis, Re sult may be falsely increased. Whole blood hemoglobin A1c/t otal hemoglobin ratio (mass fraction)on 03-04-2022 HbA1c (Bld) [Mass fraction] 11.8 % 3.8-5.6 [facility] Work Phone: Comment on above: Normal < 5.7 % Predi abetic 5.7 - 6.4 % Diabetic >or= 6.5 % Please note range changes. Basic Metabolic Panelon 12-0 -2018 Calcium [Mass/Vol] 9.2 mg/dL Normal 8.4-10.4 [facility] Comment on above: Performed By: #### H EMDF, TROPN, LIPD2, TSH5, BMP3 #### [facility] [employer] [address] [place] [address] Anion gap [Moles/Vol] 9 Normal [facility] Comment on above: Performed By: #### H EMDF, TROPN, LIPD2, TSH5, BMP3 #### [facility] [employer] [facility] [address] [place] CO2 [Moles/Vol] 21 mmol/L Low 22-30 [facility] Comment on above: Performed By: #### H EMDF, TROPN, LIPD2, TSH5, BMP3 #### [facility] [employer] [address] [place], [place] Creatinine [Mass/Vol] 0.91 mg/dL Normal 0.52-1.25 [facility] Comment on above: Performed By: #### H EMDF, TROPN, LIPD2, TSH5, BMP3 #### [facility] [employer] [address] [place], [place] GFR/1.73 sq M predicted among blacks MDRD (S/P/Bld) [Vol rate/Area] mL/min/{1.73_m2} Normal >60 [facility] Comment on above: Performed By: #### H EMDF, TROPN, LIPD2, TSH5, BMP3 #### [facility] [address] [place] [address] GFR/1.73 sq M predicted among non-blacks MDRD (S/P/Bld) [Vol rate/Area] mL/min/{1.73_m2} Normal >60 [facility] Comment on above: Result Comment: Sour ce- MDRD equation with creatinine calibration to IDMS(NKDEP) eGFR not recommended for drug dose adjustment Performed By: #### H EMDF, TROPN, LIPD2, TSH5, BMP3 #### [place] [address] [address] [place], [place] Glucose [Mass/Vol] 120 mg/dL High 70-100 [facility] Comment on above: Performed By: #### H EMDF, TROPN, LIPD2, TSH5, BMP3 #### [place] [address] [address] [place], [place] Urea nitrogen [Mass/Vol] 17 mg/dL Normal 7-20 [facility] Comment on above: Performed By: #### H EMDF, TROPN, LIPD2, TSH5, BMP3 #### [place] [address] [place] [place], [place] Chloride [Moles/Vol] 105 mmol/L Normal 98-107 [facility] Comment on above: Performed By: #### H EMDF, TROPN, LIPD2, TSH5, BMP3 #### [facility] [address] [place], [place] Potassium [Moles/Vol] 4.3 mmol/L Normal 3.5-5.1 [facility] Comment on above: Performed By: #### H EMDF, TROPN, LIPD2, TSH5, BMP3 #### [place] [address] [address] [place], [place] Sodium [Moles/Vol] 136 mmol/L Normal 135-145 [facility] Comment on above: Performed By: #### H EMDF, TROPN, LIPD2, TSH5, BMP3 #### [facility] [address] [place] [address] Anion gap [Moles/Vol] 9 mmol/L [place] Calcium [Mass/Vol] 9.2 mg/dL 8.4 - 10. 4 mg/dL [place] Chloride [Moles/Vol] 105 mmol/L 98 - 107 mmol/L [place] CO2 [Moles/Vol] 21 mmol/L Low 22 - 30 mmol/L [place] Creatinine [Mass/Vol] 0.91 mg/dL 0.52 - 1.25 mg/dL [place] EGFR IF NonAfrican [place] >60.0 >60 mL/min [place] Comment on above: Source- MDRD equatio n with creatinine calibration to IDMS(NKDEP) eGFR not recommended for drug dose adjustment GFR/1.73 sq M predicted among blacks MDRD (S/P/Bld) [Vol rate/Area] mL/min/{1.73_m2} >60 mL/min [place] Glucose [Mass/Vol] 120 mg/dL High 70 - 100 mg/dL [place] Potassium [Moles/Vol] 4.3 mmol/L 3.5 - 5.1 mmol/L [place] Sodium [Moles/Vol] 136 mmol/L 135 - 145 mmol/L [place] Urea nitrogen [Mass/Vol] 17 mg/dL 7 - 20 mg/dL [place] CBC Auto Differentialon 12-0 -2018 Absolute Baso # 0.1 10*3/uL 0 - 0.2 10*3/uL [place] Absolute Neut # 4.4 10*3/uL 1.8 - 7 10*3/uL [place] Basophils/100 WBC (Bld) 0.9 % 0 - 2 % [place] Eosinophils (Bld) [#/Vol] 0.1 10*3/uL 0 - 0.5 10*3/uL [place] Eosinophils/100 WBC (Bld) 1.2 % 1 - 6 % [place] Erythrocyte distribution width (RBC) [Ratio] 13.5 % 11.5 - 14.5 % [place] Granulocytes/100 WBC (Bld) 59.0 % 40 - 80 % [place] Hematocrit (Bld) [Volume fraction] 45.1 % 40 - 52 % [place] Hemoglobin (Bld) [Mass/Vol] 15.7 g/dL 13 - 18 g/dL [place] Interpretation and review of laboratory results Abnormal [place] Lymphocytes (Bld) [#/Vol] 2.4 10*3/uL 1 - 4.3 10*3/uL [place] Lymphocytes/100 WBC (Bld) 32.9 % 20 - 40 % [place] MCH (RBC) [Entitic mass] 30.6 pg 26 - 34 pg [place] MCHC (RBC) [Mass/Vol] 34.8 % 32 - 36 % [place] MCV (RBC) [Entitic vol] 87.8 fL 80 - 98 fL [place] Monocytes (Bld) [#/Vol] 0.4 10*3/uL 0 - 0.8 10*3/uL [place] Monocytes/100 WBC (Bld) 6.0 % 2 - 10 % [place] Platelet mean volume (Bld) [Entitic vol] 7.1 fL Low 7.4 - 10.4 fL [place] Platelets (Bld) [#/Vol] 277 10*3/uL 140 - 440 10*3/uL [place] RBC (Bld) [#/Vol] 5.14 10*6/uL 4.4 - 5.9 10*6/uL [place] WBC (Bld) [#/Vol] 7.4 10*3/uL 3.6 - 10.7 10*3/uL [place] Test Performed by [facility], [address] [place], [place] [id number] [place], [place] ECHO Complete 2D W Doppler [place] 06-25-2019 TRANSTHORACIC ECHOCARDIOGRAM PATIENT: Reg Kaplan STUDY DATE: 06/25/2019 : 1980 AGE: 39 HT/WT: 188 cm (74 152 kg in) (334.3 lb) GENDER: M BP: 109 / 71 LOCATION: [facility] PATIENT Observation [facility] STATUS: *ORDERING PHYSICIAN: * Ferny Holm MD *READING PHYSICIAN: * Ferny *AIR VICE MARSHAL: * Lelia Holm MD RDCS, AE INDICATIONS: CP, elevated troponin, HTN. CONCLUSIONS SUMMARY: 1. Procedure narrative: Image quality was suboptimal. Intravenous imaging enhancement (Definity) was administered. Definity lot #: [id number]. 2. Left ventricle: There is mild concentric hypertrophy. Systolic function is normal by the biplane method of disks. The estimated ejection fraction is 73%. Although no diagnostic regional wall motion abnormality is identified, this possibility cannot be completely excluded on the basis of this study. 3. Right ventricle: The cavity size is mildly dilated. Systolic function is normal. Right ventricular systolic pressure is within the normal range. 4. No significant valve disease. STUDY DATA: Complete transthoracic echocardiogram. Procedure: Image quality was suboptimal. Intravenous imaging enhancement (Definity) was administered. Definity lot #: [id number]. M-mode, complete 2D, complete spectral Doppler, and color flow Doppler images were acquired and archived for permanent storage and are available for subsequent review. Study status: Routine. Patient status: Observation. FINDINGS LEFT VENTRICLE: The cavity size is normal. Wall thickness is mildly increased. There is mild concentric hypertrophy. Systolic function is normal by the biplane method of disks. The estimated ejection fraction is 73%. Although no diagnostic regional wall motion abnormality is identified, this possibility cannot be completely excluded on the basis of this study. The pulmonary vein flow pattern is normal. E/e' average: 7 RIGHT VENTRICLE: The cavity size is mildly dilated. Systolic function is normal. Right ventricular systolic pressure is within the normal range. VENTRICULAR SEPTUM: There is no evidence of a ventricular septal defect. LEFT ATRIUM: The atrium is normal in size. RIGHT ATRIUM: The atrium is normal in size. ATRIAL SEPTUM: Color Doppler shows no shunt. MITRAL VALVE: Structurally normal valve. Doppler: There is no evidence for stenosis. There is no regurgitation. AORTIC VALVE: Structurally normal valve. Probably trileaflet. Doppler: There is no stenosis. There is no regurgitation. The peak systolic gradient is 9 mm Hg. The peak systolic velocity is 1.5 m/sec. TRICUSPID VALVE: Structurally normal valve. Doppler: There is trivial, less than 1+ regurgitation. PULMONIC VALVE: Structurally normal valve. Doppler: There is trivial, less than 1+ regurgitation. AORTA: The aorta is normal. PULMONARY ARTERY: Main pulmonary artery: Normal. PERICARDIUM: There is no pericardial effusion. SYSTEMIC VEINS: Inferior vena cava: The vessel is mildly dilated. The IVC collapses by greater than 50% with inspiration. Measurements Value Reference Aortic root ID 2.9 cm <4.7 Aortic root ID, STJ, ED 2.7 cm 2.3 - 3.5 Aortic root ID/bsa, STJ, ED (L) 0.9 cm/m^2 1.1 - 1.9 Value Reference Ascending aorta ID, A-P, S 2.9 cm Ascending aorta ID/bsa, A-P, S 1.0 cm/m^2 Left ventricle Value Reference LV ID, ED 4.7 cm 4.2 - 5.8 LV ID, ES 3.3 cm 2.5 - 4.0 LV ID/bsa, ED (L) 1.6 cm/m^2 2.2 - 3.0 LV ID/bsa, ES (L) 1.1 cm/m^2 1.3 - 2.1 LV PW thickness, ED (H) 1.2 cm 0.6 - 1.0 LV PW/LV ID ratio, ED 0.24 LV wall mass (H) 208 g 96 - 200 LV wall mass/bsa 72 g/m^2 50 - 102 Stroke volume/bsa, 1-p A2C 29.6 ml/m^2 LV end-diastolic volume, 1-p A4C 122 ml 69 - 185 LV end-systolic volume, 1-p A4C 28 ml 22 - 78 LV end-diastolic volume, 2-p 131 ml 62 - 150 LV end-systolic volume, 2-p 36 ml 21 - 61 LV ejection fraction, 2-p (H) 73 % 52 - 72 LV E/e', lateral 7 LV E/e', medial 5.8 LV E/e', average 5.3 Ventricular septum Value Reference IVS thickness, ED (H) 1.2 cm 0.6 - 1.0 LVOT Value Reference LVOT ID, A-P 2.3 cm LVOT mean velocity, S 1.1 m/sec LVOT peak gradient, S 9 mm Hg Stroke volume (SV), LVOT DP 116 ml Stroke index (SV/bsa), LVOT DP 40 ml/m^2 Aortic valve Value Reference Aortic valve peak velocity, S 1.5 m/sec Aortic peak gradient, S 9 mm Hg Left atrium Value Reference LA volume/bsa, ES, 2-p 16 ml/m^2 16 - 34 Mitral valve Value Reference Mitral E-wave peak velocity 0.6 m/sec Mitral A-wave peak velocity 0.6 m/sec Mitral deceleration time 160 ms Mitral E/A ratio, peak 1.0 Pulmonary arteries Value Reference PA pressure, S, DP 27 mm Hg Tricuspid valve Value Reference Tricuspid regurg peak velocity 2.2 m/sec <=2.8 Tricuspid peak RV-RA gradient 19 mm Hg Right atrium Value Reference RA area, ES, A4C 18 cm^2 10 - 18 Systemic veins Value Reference Estimated RAP 8 mm Hg Right ventricle Value Reference RV ID, minor axis, ED, A4C base 4.1 cm 2.5 - 4.1 RV ID, minor axis, ED, A4C mid (H) 3.7 cm 1.9 - 3.5 TAPSE, 2D 1.9 cm 1.7 - 3.1 RV pressure, S, DP 27 mm Hg RV s', lateral 11.1 cm/sec 6.0 - 13.4 Legend: (L) and (H) zulay values outside specified reference range. Electronically signed by Ferny Holm MD 06/25/2019 11:04 Prior Signatures: [facility]- [place], [place] [facility], [facility] Incoming Cardiology Results From [employer] - 06/25/2019 11:05 AM EST TRANSTHORACIC ECHOCARDIOGRAM PATIENT: Reg Kaplan STUDY DATE: 06/25/2019 : 1980 AGE: 39 HT/WT: 188 cm (74 152 kg in) (334.3 lb) GENDER: M BP: 109 / 71 LOCATION: [facility] PATIENT Observation [facility] STATUS: *ORDERING PHYSICIAN: * Ferny Holm MD *READING PHYSICIAN: * Ferny *AIR VICE MARSHAL: * Lelia Holm MD RDCS, AE INDICATIONS: CP, elevated troponin, HTN. CONCLUSIONS SUMMARY: 1. Procedure narrative: Image quality was suboptimal. Intravenous imaging enhancement (Definity) was administered. Definity lot #: [id number]. 2. Left ventricle: There is mild concentric hypertrophy. Systolic function is normal by the biplane method of disks. The estimated ejection fraction is 73%. Although no diagnostic regional wall motion abnormality is identified, this possibility cannot be completely excluded on the basis of this study. 3. Right ventricle: The cavity size is mildly dilated. Systolic function is normal. Right ventricular systolic pressure is within the normal range. 4. No significant valve disease. STUDY DATA: Complete transthoracic echocardiogram. Procedure: Image quality was suboptimal. Intravenous imaging enhancement (Definity) was administered. Definity lot #: [id number]. M-mode, complete 2D, complete spectral Doppler, and color flow Doppler images were acquired and archived for permanent storage and are available for subsequent review. Study status: Routine. Patient status: Observation. FINDINGS LEFT VENTRICLE: The cavity size is normal. Wall thickness is mildly increased. There is mild concentric hypertrophy. Systolic function is normal by the biplane method of disks. The estimated ejection fraction is 73%. Although no diagnostic regional wall motion abnormality is identified, this possibility cannot be completely excluded on the basis of this study. The pulmonary vein flow pattern is normal. E/e' average: 7 RIGHT VENTRICLE: The cavity size is mildly dilated. Systolic function is normal. Right ventricular systolic pressure is within the normal range. VENTRICULAR SEPTUM: There is no evidence of a ventricular septal defect. LEFT ATRIUM: The atrium is normal in size. RIGHT ATRIUM: The atrium is normal in size. ATRIAL SEPTUM: Color Doppler shows no shunt. MITRAL VALVE: Structurally normal valve. Doppler: There is no evidence for stenosis. There is no regurgitation. AORTIC VALVE: Structurally normal valve. Probably trileaflet. Doppler: There is no stenosis. There is no regurgitation. The peak systolic gradient is 9 mm Hg. The peak systolic velocity is 1.5 m/sec. TRICUSPID VALVE: Structurally normal valve. Doppler: There is trivial, less than 1+ regurgitation. PULMONIC VALVE: Structurally normal valve. Doppler: There is trivial, less than 1+ regurgitation. AORTA: The aorta is normal. PULMONARY ARTERY: Main pulmonary artery: Normal. PERICARDIUM: There is no pericardial effusion. SYSTEMIC VEINS: Inferior vena cava: The vessel is mildly dilated. The IVC collapses by greater than 50% with inspiration. Measurements Value Reference Aortic root ID 2.9 cm <4.7 Aortic root ID, STJ, ED 2.7 cm 2.3 - 3.5 Aortic root ID/bsa, STJ, ED (L) 0.9 cm/m^2 1.1 - 1.9 Value Reference Ascending aorta ID, A-P, S 2.9 cm Ascending aorta ID/bsa, A-P, S 1.0 cm/m^2 Left ventricle Value Reference LV ID, ED 4.7 cm 4.2 - 5.8 LV ID, ES 3.3 cm 2.5 - 4.0 LV ID/bsa, ED (L) 1.6 cm/m^2 2.2 - 3.0 LV ID/bsa, ES (L) 1.1 cm/m^2 1.3 - 2.1 LV PW thickness, ED (H) 1.2 cm 0.6 - 1.0 LV PW/LV ID ratio, ED 0.24 LV wall mass (H) 208 g 96 - 200 LV wall mass/bsa 72 g/m^2 50 - 102 Stroke volume/bsa, 1-p A2C 29.6 ml/m^2 LV end-diastolic volume, 1-p A4C 122 ml 69 - 185 LV end-systolic volume, 1-p A4C 28 ml 22 - 78 LV end-diastolic volume, 2-p 131 ml 62 - 150 LV end-systolic volume, 2-p 36 ml 21 - 61 LV ejection fraction, 2-p (H) 73 % 52 - 72 LV E/e', lateral 7 LV E/e', medial 5.8 LV E/e', average 5.3 Ventricular septum Value Reference IVS thickness, ED (H) 1.2 cm 0.6 - 1.0 LVOT Value Reference LVOT ID, A-P 2.3 cm LVOT mean velocity, S 1.1 m/sec LVOT peak gradient, S 9 mm Hg Stroke volume (SV), LVOT DP 116 ml Stroke index (SV/bsa), LVOT DP 40 ml/m^2 Aortic valve Value Reference Aortic valve peak velocity, S 1.5 m/sec Aortic peak gradient, S 9 mm Hg Left atrium Value Reference LA volume/bsa, ES, 2-p 16 ml/m^2 16 - 34 Mitral valve Value Reference Mitral E-wave peak velocity 0.6 m/sec Mitral A-wave peak velocity 0.6 m/sec Mitral deceleration time 160 ms Mitral E/A ratio, peak 1.0 Pulmonary arteries Value Reference PA pressure, S, DP 27 mm Hg Tricuspid valve Value Reference Tricuspid regurg peak velocity 2.2 m/sec <=2.8 Tricuspid peak RV-RA gradient 19 mm Hg Right atrium Value Reference RA area, ES, A4C 18 cm^2 10 - 18 Systemic veins Value Reference Estimated RAP 8 mm Hg Right ventricle Value Reference RV ID, minor axis, ED, A4C base 4.1 cm 2.5 - 4.1 RV ID, minor axis, ED, A4C mid (H) 3.7 cm 1.9 - 3.5 TAPSE, 2D 1.9 cm 1.7 - 3.1 RV pressure, S, DP 27 mm Hg RV s', lateral 11.1 cm/sec 6.0 - 13.4 Legend: (L) and (H) zulay values outside specified reference range. Electronically signed by Ferny Holm MD 06/25/2019 11:04 Prior Signatures: [facility]- [place], [place] EKG 12 [place] 06-25-2019 [place], [facility] Cardiology Results From Joseluis/Ricardo - 06/25/2019 5:24 PM EST [facility] [employer] [facility] Test Date: 2019-06-24 Pat Name: Reg Kaplan Department: 1A5W Room: 1525 Gender: M [place]: [place] : 1980 Requested By: PAWAN CASTELLANOS Order Number: [id number] Reading MD: Gunnar Maldonado Measurements Intervals [place] Rate: 77 P: 41 NC: 166 QRS: 33 QRSD: 99 T: 28 QT: 368 QTc: 417 Interpretive Statements Sinus rhythm Electronically Signed On 06-25-2019 17:23:03 EST by Gunnar [email or web address] [facility] Test Date: 2019-06-24 Pat Name: Reg Kaplan Department: 1A5W Room: 1525 Gender: M [place]: [place] : 1980 Requested By: PAWAN CASTELLANOS Order Number: [id number] Yaakov MD: Gunnar Maldonado Measurements Intervals [place] Rate: 77 P: 41 NC: 166 QRS: 33 QRSD: 99 T: 28 QT: 368 QTc: 417 Interpretive Statements Sinus rhythm Electronically Signed On 06-25-2019 17:23:03 EST by Gunnar Maldonado [place], [place] Echo Complete w/wo Contrasto n 06-25-2019 Echo Complete w/wo Contrast Patient Name: REG KAPLAN Ultrasound Exam Date/Time 06/25/2019 10:38:58 EST Exam Echo Complete w/wo Contrast Ordering Physician MD ALTA, FERNY Strange Accession Number [id number] Reason For Exam chest pain, elevated Tn, HTN Report TRANSTHORACIC ECHOCARDIOGRAM PATIENT: Reg Kaplan STUDY DATE: 06/25/2019 : 1980 AGE: 39 HT/WT: 188 cm (74 152 kg in) (334.3 lb) GENDER: M BP: 109 / 71 LOCATION: [facility] PATIENT Observation [facility] STATUS: *ORDERING PHYSICIAN: * Ferny Holm MD *READING PHYSICIAN: * Ferny *AIR VICE MARSHAL: * Lelia Holm MD [facility], AE INDICATIONS: CP, elevated troponin, HTN. CONCLUSIONS SUMMARY: 1. Procedure narrative: Image quality was suboptimal. Intravenous imaging enhancement (Definity) was administered. Definity lot #: [id number]. 2. Left ventricle: There is mild concentric hypertrophy. Systolic function is normal by the biplane method of disks. The estimated ejection fraction is 73%. Although no diagnostic regional wall motion abnormality is identified, this possibility cannot be completely excluded on the basis of this study. 3. Right ventricle: The cavity size is mildly dilated. Systolic function is normal. Right ventricular systolic pressure is within the normal range. 4. No significant valve disease. STUDY DATA: Complete transthoracic echocardiogram. Procedure: Image quality was suboptimal. Intravenous imaging enhancement (Definity) was administered. Definity lot #: [id number]. M-mode, complete 2D, complete spectral Doppler, and color flow Doppler images were acquired and archived for permanent storage and are available for subsequent review. Study status: Routine. Patient status: Observation. FINDINGS LEFT VENTRICLE: The cavity size is normal. Wall thickness is mildly increased. There is mild concentric hypertrophy. Systolic function is normal by the biplane method of disks. The estimated ejection fraction is 73%. Although no diagnostic regional wall motion abnormality is identified, this possibility cannot be completely excluded on the basis of this study. The pulmonary vein flow pattern is normal. E/e' average: 7 RIGHT VENTRICLE: The cavity size is mildly dilated. Systolic function is normal. Right ventricular systolic pressure is within the normal range. VENTRICULAR SEPTUM: There is no evidence of a ventricular septal defect. LEFT ATRIUM: The atrium is normal in size. RIGHT ATRIUM: The atrium is normal in size. ATRIAL SEPTUM: Color Doppler shows no shunt. MITRAL VALVE: Structurally normal valve. Doppler: There is no evidence for stenosis. There is no regurgitation. AORTIC VALVE: Structurally normal valve. Probably trileaflet. Doppler: There is no stenosis. There is no regurgitation. The peak systolic gradient is 9 mm Hg. The peak systolic velocity is 1.5 m/sec. TRICUSPID VALVE: Structurally normal valve. Doppler: There is trivial, less than 1+ regurgitation. PULMONIC VALVE: Structurally normal valve. Doppler: There is trivial, less than 1+ regurgitation. AORTA: The aorta is normal. PULMONARY ARTERY: Main pulmonary artery: Normal. PERICARDIUM: There is no pericardial effusion. SYSTEMIC VEINS: Inferior vena cava: The vessel is mildly dilated. The IVC collapses by greater than 50% with inspiration. Measurements Value Reference Aortic root ID 2.9 cm <4.7 Aortic root ID, STJ, ED 2.7 cm 2.3 - 3.5 Aortic root ID/bsa, STJ, ED (L) 0.9 cm/m^2 1.1 - 1.9 Value Reference Ascending aorta ID, A-P, S 2.9 cm Ascending aorta ID/bsa, A-P, S 1.0 cm/m^2 Left ventricle Value Reference LV ID, ED 4.7 cm 4.2 - 5.8 LV ID, ES 3.3 cm 2.5 - 4.0 LV ID/bsa, ED (L) 1.6 cm/m^2 2.2 - 3.0 LV ID/bsa, ES (L) 1.1 cm/m^2 1.3 - 2.1 LV PW thickness, ED (H) 1.2 cm 0.6 - 1.0 LV PW/LV ID ratio, ED 0.24 LV wall mass (H) 208 g 96 - 200 LV wall mass/bsa 72 g/m^2 50 - 102 Stroke volume/bsa, 1-p A2C 29.6 ml/m^2 LV end-diastolic volume, 1-p A4C 122 ml 69 - 185 LV end-systolic volume, 1-p A4C 28 ml 22 - 78 LV end-diastolic volume, 2-p 131 ml 62 - 150 LV end-systolic volume, 2-p 36 ml 21 - 61 LV ejection fraction, 2-p (H) 73 % 52 - 72 LV E/e', lateral 7 LV E/e', medial 5.8 LV E/e', average 5.3 Ventricular septum Value Reference IVS thickness, ED (H) 1.2 cm 0.6 - 1.0 LVOT Value Reference LVOT ID, A-P 2.3 cm LVOT mean velocity, S 1.1 m/sec LVOT peak gradient, S 9 mm Hg Stroke volume (SV), LVOT DP 116 ml Stroke index (SV/bsa), LVOT DP 40 ml/m^2 Aortic valve Value Reference Aortic valve peak velocity, S 1.5 m/sec Aortic peak gradient, S 9 mm Hg Left atrium Value Reference LA volume/bsa, ES, 2-p 16 ml/m^2 16 - 34 Mitral valve Value Reference Mitral E-wave peak velocity 0.6 m/sec Mitral A-wave peak velocity 0.6 m/sec Mitral deceleration time 160 ms Mitral E/A ratio, peak 1.0 Pulmonary arteries Value Reference PA pressure, S, DP 27 mm Hg Tricuspid valve Value Reference Tricuspid regurg peak velocity 2.2 m/sec <=2.8 Tricuspid peak RV-RA gradient 19 mm Hg Right atrium Value Reference RA area, ES, A4C 18 cm^2 10 - 18 Systemic veins Value Reference Estimated RAP 8 mm Hg Right ventricle Value Reference RV ID, minor axis, ED, A4C base 4.1 cm 2.5 - 4.1 RV ID, minor axis, ED, A4C mid (H) 3.7 cm 1.9 - 3.5 TAPSE, 2D 1.9 cm 1.7 - 3.1 RV pressure, S, DP 27 mm Hg RV s', lateral 11.1 cm/sec 6.0 - 13.4 Legend: (L) and (H) zulay values outside specified reference range. Electronically signed by Ferny Holm MD 06/25/2019 11:04 Prior Signatures: Final Dictated: 06/25/2019 11:05 am Dictating Physician: MD HOLM STEPHEN M Signed Date and Time: 06/25/2019 11:05 am Signed by: MD HOLM STEPHEN M Normal [facility] Hemogram w/ Autodiffon 06-25 Abs Baso Cnt 0.1 10*3/uL Normal 0.0-0.2 [facility] Comment on above: Performed By: #### H EMDF, TROPN, LIPD2, TSH5, BMP3 #### [facility] [employer] [address] [place] [address] Abs Neutrophile Cnt 4.4 10*3/uL Normal 1.8-7.0 [facility] Comment on above: Performed By: #### H EMDF, TROPN, LIPD2, TSH5, BMP3 #### [facility] [employer] [address] [place], [place] Basophils/100 WBC (Bld) 0.9 % Normal 0.0-2.0 [facility] Comment on above: Performed By: #### H EMDF, TROPN, LIPD2, TSH5, BMP3 #### [address] Eosinophils (Bld) [#/Vol] 0.1 10*3/uL Normal 0.0-0.5 [facility] Comment on above: Performed By: #### H EMDF, TROPN, LIPD2, TSH5, BMP3 #### [address] Eosinophils/100 WBC (Bld) 1.2 % Normal 1.0-6.0 [facility] Comment on above: Performed By: #### H EMDF, TROPN, LIPD2, TSH5, BMP3 #### [address] Erythrocyte distribution width (RBC) [Ratio] 13.5 % Normal 11.5-14.5 [facility] Comment on above: Performed By: #### H EMDF, TROPN, LIPD2, TSH5, BMP3 #### [address] Granulocytes/100 WBC (Bld) 59.0 % Normal 40.0-80.0 [facility] Comment on above: Performed By: #### H EMDF, TROPN, LIPD2, TSH5, BMP3 #### [address] Hematocrit (Bld) [Volume fraction] 45.1 % Normal 40.0-52.0 [facility] Comment on above: Performed By: #### H EMDF, TROPN, LIPD2, TSH5, BMP3 #### [address] Hemoglobin (Bld) [Mass/Vol] 15.7 g/dL Normal 13.0-18.0 [facility] Comment on above: Performed By: #### H EMDF, TROPN, LIPD2, TSH5, BMP3 #### [place] [address] [address] [place], [place] Lymphocytes (Bld) [#/Vol] 2.4 10*3/uL Normal 1.0-4.3 [facility] Comment on above: Performed By: #### H EMDF, TROPN, LIPD2, TSH5, BMP3 #### [address] [place] [address] [place] Lymphocytes/100 WBC (Bld) 32.9 % Normal 20.0-40.0 [facility] Comment on above: Performed By: #### H EMDF, TROPN, LIPD2, TSH5, BMP3 #### [address] MCH (RBC) [Entitic mass] 30.6 pg Normal 26.0-34.0 [facility] Comment on above: Performed By: #### H EMDF, TROPN, LIPD2, TSH5, BMP3 #### [address] MCHC (RBC) [Mass/Vol] 34.8 % Normal 32.0-36.0 [facility] Comment on above: Performed By: #### H EMDF, TROPN, LIPD2, TSH5, BMP3 #### [address] MCV (RBC) [Entitic vol] 87.8 fL Normal 80.0-98.0 [facility] Comment on above: Performed By: #### H EMDF, TROPN, LIPD2, TSH5, BMP3 #### [address] Monocytes (Bld) [#/Vol] 0.4 10*3/uL Normal 0.0-0.8 [facility] Comment on above: Performed By: #### H EMDF, TROPN, LIPD2, TSH5, BMP3 #### [address] Monocytes/100 WBC (Bld) 6.0 % Normal 2.0-10.0 [facility] Comment on above: Performed By: #### H EMDF, TROPN, LIPD2, TSH5, BMP3 #### [facility] [address] [place], [place] Platelet mean volume (Bld) [Entitic vol] 7.1 fL Low 7.4-10.4 [facility] Comment on above: Performed By: #### H EMDF, TROPN, LIPD2, TSH5, BMP3 #### [facility] [address] [place], [place] Platelets (Bld) [#/Vol] 277 10*3/uL Normal 140-440 [facility] Comment on above: Performed By: #### H EMDF, TROPN, LIPD2, TSH5, BMP3 #### [address] [place] [address] [address] [place], [place] RBC (Bld) [#/Vol] 5.14 10*6/uL Normal 4.40-5.90 [facility] Comment on above: Performed By: #### H EMDF, TROPN, LIPD2, TSH5, BMP3 #### [address] [place] [address] [address] [place], [place] WBC (Bld) [#/Vol] 7.4 10*3/uL Normal 3.6-10.7 [facility] Comment on above: Performed By: #### H EMDF, TROPN, LIPD2, TSH5, BMP3 #### [address] [address] [address] [place], [place] Lipid Panelon 06-25-2019 Cholesterol in HDL [Mass/Vol] 37 mg/dL Low 40-60 [facility] Comment on above: Performed By: #### H EMDF, TROPN, LIPD2, TSH5, BMP3 #### [address] [address] [address] [place], [place] Cholesterol.total/C holesterol in HDL [Mass ratio] 7 Normal [facility] Comment on above: Result Comment: Ref Range: < 3 Low Risk for CHD 3-6 Mod Risk for CHD > 6 High Risk for CHD Performed By: #### H EMDF, TROPN, LIPD2, TSH5, BMP3 #### [address] [address] [place] [address] Protein [Mass/Vol] 142 mg/dL Abnormal <100 [facility] Comment on above: Performed By: #### H EMDF, TROPN, LIPD2, TSH5, BMP3 #### [facility] [address] [place] [address] Triglyceride [Mass/Vol] 364 mg/dL Abnormal <150 [facility] Comment on above: Performed By: #### H EMDF, TROPN, LIPD2, TSH5, BMP3 #### [facility] [address] [place] [address] Cholesterol [Mass/Vol] 252 mg/dL Abnormal < 200 [facility] Comment on above: Performed By: #### H EMDF, TROPN, LIPD2, TSH5, BMP3 #### [facility] [address] [place] [address] Cholesterol [Mass/Vol] 252 mg/dL Abnormal <200 [place], [place] Cholesterol in HDL [Mass/Vol] 37 mg/dL Low 40 - 60 mg/dL [place] Cholesterol in LDL [Mass/Vol] 142 mg/dL Abnormal <100 [place] Cholesterol.total/C holesterol in HDL [Mass ratio] 7 {ratio} [place] Comment on above: Ref Range: < 3 Low Risk for CHD 3-6 Mod Risk for CHD > 6 High Risk for CHD Triglyceride [Mass/Vol] 364 mg/dL Abnormal <150 [place] Otheron 06-25-2019 Interpretation and review of laboratory results Abnormal [place] Test Performed by [facility], [address] [place] [address] [place] TSH without Reflexon 019 TSH Qn 2.505 u[IU]/mL 0.465 - 4.68 u[IU]/mL [place] Test Performed by [facility], [address] [place] [address] [place] Thyroid Stim. Hormoneon Thyroid Stim. Hormone 2.505 u[IU]/mL Normal 0.465-4.680 [facility] Comment on above: Performed By: #### H EMDF, TROPN, LIPD2, TSH5, BMP3 #### [address] [address] [place] [address] Troponinon 06-25-2019 Interpretation and review of laboratory results Abnormal [place] Troponin I.cardiac [Mass/Vol] 0.112 ng/mL High 0 - 0.034 ng/mL [place] Comment on above: . Test Performed by [facility], [facility] [place], [place] [id number] [place] [address] Troponin Ion 06-25-2019 Troponin I.cardiac [Mass/Vol] 0.112 ng/mL High 0.000-0.034 [facility] Comment on above: Result Comment: . Performed By: #### H EMDF, TROPN, LIPD2, TSH5, BMP3 #### [address] [address] [place] [address] CK with Reflex CK-MBon 06-24 Interpretation and review of laboratory results Abnormal [place], [place] Total CK 513 U/L High 30 - 170 U/L [place] Test Performed by [facility], [address] [place] [id number] [place] [address] CK-MB Indexon 06-24-2019 CK.MB [Mass/Vol] 2.6 ng/mL High 0 - 2.4 ng/mL [place] Comment on above: Both the CKMB and th e Relative Index must be abnormal for clinical significance. CK.MB [Mass/Vol] 0.5 ng/mL [place] Interpretation and review of laboratory results Abnormal [place] Test Performed by [facility], [facility] [place], [place] [id number] [place] [address] CKMB Fractionationon 019 CK.MB [Mass/Vol] 2.6 ng/mL High 0.0-2.4 [facility] Comment on above: Result Comment: Both the CKMB and the Relative Index must be abnormal for clinical significance. Performed By: #### M BF33, CKMBS, TROPN #### [facility] [address] [place] [address] Relative Index 0.5 Normal 0.0-3.0 [facility] Comment on above: Performed By: #### M BF33, CKMBS, TROPN #### [facility] [address] [place] [address] CKMB Screenon 06-24-2019 CK [Catalytic activity/Vol] 513 U/L High 30-170 [facility] Comment on above: Performed By: #### M BF33, CKMBS, TROPN #### [facility] [address] [place] [address] Troponinon 06-24-2019 Interpretation and review of laboratory results Abnormal [place] Troponin I.cardiac [Mass/Vol] 0.156 ng/mL High 0 - 0.034 ng/mL [place] Comment on above: . Test Performed by [id number] [place] [address] Interpretation and review of laboratory results Abnormal [place] Troponin I.cardiac [Mass/Vol] 0.225 ng/mL High 0 - 0.034 ng/mL [place] Comment on above: . Test Performed by [id number] [place] [address] Troponin Ion 06-24-2019 Troponin I.cardiac [Mass/Vol] 0.156 ng/mL High 0.000-0.034 [facility] Comment on above: Result Comment: . Performed By: #### M BF33, CKMBS, TROPN #### [place] [address] [place] [address] Troponin I.cardiac [Mass/Vol] 0.225 ng/mL High 0.000-0.034 [facility] Comment on above: Result Comment: . Performed By: #### T ROPN #### [place] [address] [place] [address] OCCUPATIONAL MEDICINE REPORT on 07-19-2018 OCCUPATIONAL MEDICINE REPORT THE [place] [address] [place], [place] [id number] MEDICINEPhone: / [id number] MEDICINE REPORTPatient: MARIA GUADALUPE KAPLANWW-J CASEY [id number] MStatus: REG CLI [facility] PROGRESS NOTEDATE OF [id number]/13/2018DATE OF RUZUOH9407/04/2018HISTORY OF PERTINENT ILLNESSThis is a 38-year-old male who presents to office for work related injury. 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 The patient arrives today for reevaluation. States that he is having no troublewith his left thumb, still has pressure at points when he hits his left thumb. Otherwiseno difficulties. Denies any fever, chills, loss of sensation or range of motion. Rateshis pain as a zero on 0-10 scale. Tetanus vaccination up to date. The patient is righthand dominant. States that one of the stitches fell out the following day when working,the other two remain intact.DRUG ALLERGIESNo known drug allergies.MEDICATIONSBlood pressure medication, unknown.PAST MEDICAL HISTORYHypertension.PAST SURGICAL HISTORYNone.SOCIAL HISTORYThe patient is . Denies tobacco use. Occasional alcohol use.REVIEW OF SYSTEMSGeneral: Denies any fever, chills, general malaise, excessive fatigue or energy. Lung andchest: Denies any pain with inspiration, expiration, shortness of breath with or withoutexertion, cough or dyspnea. Cardiovascular: Denies any chest pain, palpitations.Musculoskeleta l: Denies any joint pain or swelling. Neurological: Denies any seizures,strokes, abnormalities in sensation, coordination, inability to concentrate.Integumentary: The patient reports well approximated sutured site noted to left thumb.States that part of the nail on the distal aspect did fall off including one stitch.OBJECTIVE DATAThis is a 38-year-old male, height 6 feet 2 inches, weight 295 pounds, bloodpressure 139/77. Temperature 99.5 degrees Fahrenheit, pulse 76, respirations 18. Thepatient is alert and oriented x3, pleasant, cooperative in no acute distress. Wellapproximated sutured site noted to distal aspect of volar left thumb. Partial nailavulsion noted to the distal aspect of nail. Two simple interrupted sutures noted intact.Sensation intact. Capillary refill brisk. Full active range of motion noted to the leftthumb. No other skin alteration noted.PROCEDURE NOTESuccessful removal of two simple interrupted sutures noted intact, left open to air. Thepatient tolerated well.ASSESSMENTPartial nail avulsion, left thumb laceration with repair.PLANMedco-14 completed with no work restrictions. Encouraged patient to utilize good bodymechanics and protective equipment as needed. Instructed the patient to be mindful ofsigns of infection and to contact [facility] office if any develop. The patient verballyexpressed understanding. At this time I do not feel the patient warrants any furtherdiagnostics and is instructed to follow up on an as-needed basis. The patient verballyexpressed understanding and agrees with plan of care. JAYLA WALTERSNAnoopcc: << Signature on File>> Reported By: JAYLA WALTERSN.PAndrea Signed By: HUI WALTERSNAnoopTests performed at:[address] [phone] [facility] OCCUPATIONAL MEDICINE REPORT on 07-06-2018 OCCUPATIONAL MEDICINE REPORT THE [address] [id number] MEDICINEPhone: / [id number] MEDICINE REPORTPatient: MARIA GUADALUPE KAPLAN WW-J ESSICA L F.[id number] MStatus: REG CLI OCCOCCUPATIONAL MEDICINE PROGRESS NOTEDATE OF [id number]/04/2018DATE OF DIDWHS7607/04/2018HISTORY OF PRESENT ILLNESSThis is a 38-year-old male presents to office for work related injury. 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 The patient states he was drilling and the drill bit slipped and struck thetip of his left thumb causing a laceration with nail damage. The patient notifiedsupervisor. Dressing was applied at work, and the patient was instructed to follow up [facility] office. The patient states that his pain is a 4 on 0-10 scale. The patientstates tetanus is up-to-date. 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 Denies any injury to his left thumb in the past. Denies anysensory loss or range of motion abnormality. The patient is right hand dominant.DRUG ALLERGIESNo known drug allergies.MEDICATIONSUnknow n hypertension medicine.PAST MEDICAL HISTORYHypertension.PAST SURGICAL HISTORYNone.SOCIAL HISTORYThe patient is . Denies tobacco use. Occasional alcohol use.REVIEW OF SYSTEMSGeneral: Denies any fever, chills, general malaise, excessive fatigue or energy. Lung andchest: Denies any pain with inspiration, expiration, shortness of breath with or withoutexertion, cough or dyspnea. Cardiovascular: Denies any chest pain, palpitations.Musculoskeleta l: Denies any joint pain or swelling. Neurological: Denies any seizures,strokes, abnormalities in sensation, coordination, inability to concentrate.Integumentary: The patient reports laceration noted to left thumb with nail involvement.OBJECTIVE DATAThis is a 38-year-old male. Height: 6 feet 2 inches, weight 295 pounds, bloodpressure 134/84. Temperature 98.0 degrees Fahrenheit, pulse 78, respirations 60. Thepatient is alert and oriented x3, pleasant, cooperative in no acute distress. There is anapproximately 1cmlaceration noted to the distal volar aspect of left thumb proceeding down to and includingthe nail and nail bed. There is a partial avulsion noted to the distal aspect of the nailsimilar to a flap-like laceration. No obvious foreign body retainment or internalderangement. Two point discrimination utilized. No sensory loss noted. Full active rangeof motion noted to the left thumb. Radial pulse 2+. Capillary refill brisk to the rest ofthe nail. Scant amount of sanguinous drainage noted. No other skin alteration noted.PROCEDURE NOTEThe patient was prepped and draped in sterile fashion. Irrigation of approximately 250 mLof normal saline with Hibiclens utilized for irrigation purposes. No foreign bodyretainment or internal derangement is noted. Completion of a transthecal digital blockutilizing Lidocaine 1% aswell as lidocaine 1% administration to wound locally. Approximately 2.5mL in total. Oncethe patient was appropriatelyanesthetized inserted three 5.0 Ethilon sutures in simple interrupted fashion. Attemptedto suture through nail plate unsuccessful. Applied bacitracin, Telfa and cage splint. Thepatient maintains neurovascular status post suturing. The patient tolerated procedure well.ASSESSMENTPartial nail avulsion, left thumb laceration with repair.PLANMedco 14 completed. Bandage care instructions given to the patient. Informed the patientto keep area clean, dry and covered while at work and to wear cage splint. May leave thearea open to air at home in a clean environment. Clean area twice a day with soap andwater. Watch for signs of infection. Educational pamphlet regarding signs and symptoms ofinfection was given. Educational pamphlet regarding laceration care was also provided.X-ray completed in [facility] office. No obvious fracture or dislocation noted. We willfollow up with patient on 07/13/2018 at 9:30 for reevaluation and suture removal. Thepatient is aware to contact [facility] office via telephone if he is having any issues orpotential of infection. The patient verbally expressed understanding and agrees with planof care. JAYLA WALTERSNAndreaPAndreacc: << Signature on File>> Reported By: JAYLA WALTERS FAndreaNAndreaPAndrea Signed By: HUI WALTERSNAndreaPAndreaTests performed at:[address] [phone] Normal [facility] FCFINGER MIN 2 VIEWSon 07-04 FCFINGER MIN [address] [id number]: Vishal KAPLAN: JAYLA WALTERSNAnoop: 82 Age: 38 Sex: MAcct: [id number] Loc: OCCExam Date: 07/04/18 Status: REG CLIRadiology No.: [id number] Number: [id number] # [id number] [facility] / FCFINGER MIN 2 VIEWS LTLEFT thumb AP, and lateral view:Clinical Indication: Penetrating injury LEFT thumb.Comparison Study: None.Skeletal elements are intact. There is no evidence for acute fracture orcortical irregularity. Joint spaces are smoothly marginated.Moderate soft tissue swelling affects the tuft of the thumb. No radio opaqueforeign body is seen.IMPRESSION:1. focal soft tissue swelling involving the pad of the thumb, no acute bonyabnormality.Professiona l interpretation provided by [facility]60.Thank you for this referral.< >Reported By: FERNY GAGNON D.O.Signed In NovaPro By: FERNY GAGNON D.O. << Signature on File>> Reported By: FERNY GAGNON D.O. Signed By: FERNY GAGNON D.O.Tests performed at:[address] [phone] Normal [facility] Vital Signs Date Time Vital Sign Value Performing Clinician Facility 07-06-2022 08:31-0500 Reason For Taking VItal Signs JIA TAYLOR MD [facility] [place] 07-06-2022 07:26-0500 Body temperature 97.88 [degF] JIA TAYLOR MD [facility] 07-06-2022 07:26-0500 Diastolic Blood Pressure Non-Invasive 87 1 JIA TAYLOR MD [facility] 07-06-2022 07:26-0500 Heart rate 78 /min JIA TAYLOR MD [facility] 07-06-2022 07:26-0500 Respiratory rate 18 /min JIA TAYLOR MD [facility] 07-06-2022 07:26-0500 Systolic Blood Pressure Non-Invasive 143 1 JIA TAYLOR MD [facility] 07-06-2022 03:45-0500 Body temperature 97.7 [degF] JAI TAYLOR MD [address] [place] [address] 07-06-2022 03:45-0500 Diastolic Blood Pressure Non-Invasive 75 1 JIA TAYLOR MD [address] [place] [address] 07-06-2022 03:45-0500 Heart rate 80 /min JIA TAYLOR MD [address] [place] [address] 03:45-0500 Reason For Taking VItal Signs JIA TAYLOR MD [address] [place] [address] 07-06-2022 03:45-0500 Respiratory rate 18 /min JIA TAYLOR MD [address] [place] [address] 07-06-2022 03:45-0500 Systolic Blood Pressure Non-Invasive 126 1 JIA TAYLOR MD [address] [place] [address] 07-05-2022 23:05-0500 Body temperature 97.88 [degF] JIA TAYLOR MD [address] 07-05-2022 23:05-0500 Diastolic Blood Pressure Non-Invasive 70 1 JIA TAYLOR MD [address] 07-05-2022 23:05-0500 Heart rate 86 /min JIA TAYLOR MD [address] [place] [address] 23:05-0500 Reason For Taking VItal Signs JIA TAYLOR MD [address] [place] [address] 07-05-2022 23:05-0500 Respiratory rate 16 /min JIA TAYLOR MD [address] [place] [address] 07-05-2022 23:05-0500 Systolic Blood Pressure Non-Invasive 119 1 JIA TAYLOR MD [address] [place] [address] 07-05-2022 16:28-0500 Heart rate 80 /min JIA TAYLOR MD [facility] 07-04-2022 18:30-0500 Heart rate 86 /min JIA TAYLOR MD [facility] 07-03-2022 19:18-0500 Heart rate 79 /min JIA TAYLOR MD [facility] 07-03-2022 14:54-0500 Heart rate 79 /min JIA TAYLOR MD [facility] 07-03-2022 10:43-0500 Body height 188 cm JIA TAYLOR MD [facility] 07-03-2022 10:43-0500 Body weight 143.1 kg JIA TAYLOR MD [facility] 07-03-2022 10:43-0500 Body weight 40.49 kg/m2 JIA TAYLOR MD [facility] 03-05-2022 12:44-0400 Body height 187.96 cm PA-C [employer] Work Phone: [facility] Work Phone: 03-05-2022 12:44-0400 Body weight 135.8 kg PA-C [employer] Work Phone: [facility] Work Phone: 03-05-2022 08:41-0400 Body temperature 98.4 [degF] PA-C [employer] Work Phone: [facility] Work Phone: 03-05-2022 08:41-0400 Diastolic blood pressure 78 mm[Hg] PA-C [employer] Work Phone: [facility] Work Phone: 03-05-2022 08:41-0400 Heart rate 87 /min PA-C [employer] Work Phone: [facility] Work Phone: 03-05-2022 08:41-0400 Respiratory rate 18 /min PA-C [employer] Work Phone: [facility] Work Phone: 03-05-2022 08:41-0400 SaO2% (BldA) [Mass fraction] 99 % PA-C [employer] Work Phone: [facility] Work Phone: 03-05-2022 08:41-0400 Systolic blood pressure 129 mm[Hg] PA-C [employer] Work Phone: [facility] Work Phone: 03-04-2022 02:07-0400 Inhaled oxygen concentration 21 % PA-C [employer] Work Phone: [facility] Work Phone: 03-03-2022 17:00-0400 Body mass index (BMI) [Ratio] 37.3 kg/m2 PA-C [employer] Work Phone: [facility] Work Phone: 06-25-2019 18:59-0500 BP Diastolic 84 mm[Hg] [place] 06-25-2019 18:59-0500 BP Systolic 144 mm[Hg] [place] 06-25-2019 18:59-0500 Pulse (Heart Rate) 78 /min [place] 06-25-2019 18:59-0500 Pulse Oximetry 94 % [place] 06-25-2019 11:58-0500 Body Temperature 97 [degF] [place], [place] 06-25-2019 11:58-0500 Respiratory Rate 18 /min [place] 06-25-2019 03:13-0500 Body weight 152.36 kg [facility] , [place] Encounters Encounter Date Encounter Type Care Provider Facility Start: 03-06-2025 ambulatory Edgar Martinez DIALS INSPECTOR Facility :[facility] Start: 12-27-2024 End: 12-27-2024 ambulatory CLARY ROLDAN [facility] Start: 09-17-2024 End: 09-17-2024 ambulatory [facility] Start: 09-12-2024 End: 09-12-2024 ambulatory Edgar Martinez DIALS INSPECTOR Facility:[facility] Start: 09-09-2024 End: 09-09-2024 ambulatory [facility] Start: 06-19-2024 End: 06-19-2024 ambulatory CLARY ROLDAN [facility] Start: 04-25-2024 End: 04-25-2024 ambulatory [facility] Start: 03-15-2024 End: 03-15-2024 ambulatory CLARY ROLDAN [facility] Start: 03-12-2024 End: 03-12-2024 ambulatory Edgar Martinez DIALS INSPECTOR Facility:[facility] Start: 01-30-2024 End: 01-30-2024 ambulatory [facility] Start: 01-19-2024 End: 01-19-2024 ambulatory [facility] Start: 01-17-2024 End: 01-17-2024 Emergency department patient visit EDGAR ROLDAN [facility] Start: 06-19-2023 End: 06-20-[address] KACI BILLINGSLEY MD Facility:[facility] Start: 06-19-2023 End: 06-19-[address] KACI BILLINGSLEY MD [facility] Start: 06-12-2023 End: 06-13-[address] KACI BILLINGSLEY MD Facility:[facility] Start: 12-08-2022 End: 12-09-[address] KACI BILLINGSLEY MD Facility:[facility] Start: 12-02-2022 End: 12-07-[address] KACI BILLINGSLEY MD Facility:[facility] Start: 12-01-2022 End: 12-02-[address] KACI BILLINGSLEY MD Facility:[facility] Start: 11-18-2022 End: 11-19-[address] KACI BILLIGNSLEY MD Facility:[facility] Start: 10-08-2022 End: 10-13-2022 ambulatory JUAN HUITRON MD Facility:[facility] Start: 10-07-2022 End: 10-12-2022 ambulatory JUAN HUITRON MD Facility:[facility] Start: 08-08-2022 End: 08-08-2022 ambulatory [facility] Work Phone: Start: 08-08-2022 End: 08-08-2022 Patient encounter procedure [facility], [facility] Start: 07-03-2022 End: 07-06-2022 Observation JIA TAYLOR MD [facility] Start: 03-05-2022 Non-patient / Non-visit PA-C K Sakti3 PA Work Phone: [facility] Start: 03-04-2022 Non-patient / Non-visit PA-C K Sakti3 PA Work Phone: [facility] Start: 03-03-2022 End: 03-05-2022 Evaluation and management of inpatient PA-C Arti [employer] PA Work Phone: [facility]-Medical Surgical 3 Start: 03-03-2022 Non-patient / Non-visit PA-C K Sakti3 PA Work Phone: [facility] Start: 06-24-2019 End: 06-25-2019 Subsequent hospital visit by physician Klaus Kramer Work Phone: [facility] Start: 07-13-2018 Patient encounter procedure JAYLA WALTERS Facility:[facility] Start: 07-04-2018 Patient encounter procedure WW-JUSTINA STANLEY Facility:[facility] Procedures Date Procedure Procedure Detail Performing Clinician Start: 09-09-2024 PSA screening ARTI PARADA Comment on above: Performed By: #### 2 [id number] #### [facility],[address] [place], [place] [id number] Start: 05-14-[address] KACI BILLINGSLEY MD Comment on above: RIGHT KNEE Start: 08-08-2022 US scan of thyroid Start: 03-03-2022 US scan of gallbladder PA-C Arti Parada PA Work Phone: Start: 06-25-2019 CARDIAC CATH NURSING LOG 3m Scanning Start: 06-25-2019 Echo tthrc r-t 2d w/wom-mode compl spec&colr d Ferny Holm Work Phone: Start: 06-25-2019 Assay of thyroid stimulating hormone tsh Pawan Castellanos Work Phone: Start: 06-25-2019 Assay of troponin quantitative Pawan Castellanos Work Phone: Start: 06-25-2019 Basic metabolic pane l calcium total Pawan Castellanos Work Phone: Start: 06-25-2019 Blood count complete auto&auto difrntl wbc Pawan Castellanos Work Phone: Start: 06-25-2019 Lipid panel Pawan cervantes Work Phone: Start: 06-24-2019 Assay of troponin quantitative Pawan Castellanos Work Phone: Start: 06-24-2019 CK WITH REFLEX CK-MB La beatrice Castellanos Work Phone: Start: 06-24-2019 Creatine kinase mb fraction only Pawan Castellanos Work Phone: Start: 06-24-2019 Ecg routine ecg w/le ast 12 lds w/i&r Pawan Castellanos Work Phone: Start: 06-24-2019 Assay of troponin quantitative Pawan Castellanos Work Phone: Biopsy DR KACI BILLINGSLEY MD Plan of Treatment Date Care Activity Detail Author Start: 03-05-2022 Patient discharge [facility] Work Phone: Start: 03-04-2022 End: 03-05-2022 [facility] Work Phone: Start: 03-04-2022 Assessment of risk o f venous thromboembolism [facility] Work Phone: Start: 03-04-2022 Care regimes management [facility] Work Phone: Start: 03-04-2022 Insertion of cathete r into peripheral vein [facility] Work Phone: Start: 03-04-2022 Providing care accor ding to [facility] Work Phone: Start: 03-04-2022 Patient referral to dietitian [facility] Work Phone: Start: 03-03-2022 Application of intermittent pneumatic compression device [facility] Work Phone: Start: 03-03-2022 Admission procedure [facility] Work Phone: Start: 03-03-2022 Provision of activit y privileges [facility] Work Phone: Start: 03-03-2022 Assessment of risk o f venous thromboembolism [facility] Work Phone: Start: 03-03-2022 Insertion of cathete r into peripheral vein [facility] Work Phone: Start: 03-03-2022 Introduction of urin patria catheter [facility] Work Phone: Start: 03-03-2022 Oxygen therapy [facility] Work Phone: Start: 03-03-2022 Providing care accor ding to [facility] Work Phone: Start: 03-03-2022 [facility] Work Phone: Start: 03-03-2022 Continuous positive airway pressure ventilation treatment [facility] Work Phone: Start: 03-03-2022 Measuring intake and output [facility] Work Phone: Start: 03-03-2022 Verification routine [facility] Work Phone: Start: 03-03-2022 Following clinical pathway protocol [facility] Work Phone: Start: 06-25-2020 Creatinine monitoring Creatinine mon [place]oring [place] Start: 06-25-2020 Potassium monitoring Potassium monit [place]ing [place] Start: 03-24-2019 Influenza vaccination Flu vaccine (# 1) [place] End: 06-24-2019 Diagnostic Cardiac Medical Art Therapist Procedure Diagnostic Cardiac Medical Art Therapist Procedure Cardiac Cath Routine One Time for 1 Occurrences starting 06/24/2019 until 06/24/2019 [place] Comment on above: One Time for 1 Occur rences starting 06/24/2019 until 06/24/2019 Initiate Oxygen Ther apy Protocol [place] Comment on above: Daily until disconti nued starting 06/24/2019 Daily until disconti nued starting 06/25/2019 End: 06-24-2019 Nasal Cannula Oxygen Nasal Cannula Oxygen Respiratory Care Routine As Needed until discontinued starting 06/24/2019 [place] Comment on above: As Needed until disc ontinued starting 06/24/2019 Patient Education Triglycerides All About Cholesterol Control Diabetes and Heart Disease Insulin How To Use Where Inject Oral Medicines for Type 2 Diabetes Diabetes Food Shop Meals Prep Diabetes: Sick-Day Plan Diabetes and Kidney Disease Diabetes Exercise Starting Diabetes Low Blood Sugar Ch Pancreatitis Acute Dc Diabetes Serving Portion Sizes Diabetes: Meal Planning Diabetes Fitness Progress Blood Sugar Check Steps Insulin and Type 2 Diabetes Diabetes and High Blood Pressure [facility] Work Phone: Patient referral [facility] Work Phone: Payers Date Payer Category Payer Private Health Insurance [id number] 2024 Self-pay [id number] 2022 Unknown [id number] 2018 Unknown [employer] xxxxxxxxxxx 2018-Present [phone] [address] [place] [address] xxxxxxxxxxx [id number] 1982 Unknown [id number] [id number] .1982 Unknown [id number] [id number] .1982 Unknown [id number] 2.16840.1.080216.3.579.2 .1982 Unknown [id number] 2.16.840.1.215211.3.579.2 .7 1982 Unknown [id number] 2.16.840.1.340891.3.579.2 .1982 Unknown [id number] 2.16.840.1.496953.3.579.2 .1982 Unknown [id number] 2.16.840.1.915950.3.579.2 .1982 Unknown [id number] 2.16.840.1.693191.3.579.2 .627 1982 Unknown [id number] 2.16.840.1.585238.3.579.2 .1982 Unknown [id number] 2.16.840.1.532600.3.579.2 .651 1982 Unknown [id number] 2.16.840.1.119129.3.579.2 .65 1982 Unknown [id number] 1980 Unknown [id number] .651 1980 Unknown [id number] .651 1982 Unknown [id number] 2.16.840.1.242068.3.579.2 .651 1982 Unknown [id number] .651 1980 Unknown [id number] .651 Private Health Insurance [id number] Unknown [id number] Unknown [id number] .283 Unknown [id number] 2.16.840.1.014889.3.579.2 .283 Unknown [id number] 2.16.840.1.101178.3.579.2 .462 Unknown [id number] 2.16.840.1.357707.3.579.2 .462 Unknown [id number] .462 Social History Date Type Detail Facility Start: 06-24-2019 End: 03-03-2022 Tobacco smoking status [facility] Unknown if ever smoked [facility] Sex Assigned At Not on file [place], [place] Start: 1980 Sex Assigned At Male A [facility] Tobacco smoking status No Smokin g Status Entered [facility] Start: 06-19-2023 Tobacco smoking status Never s moked tobacco (finding) [facility] Goals Date Patient Goal Desired Activity /State Functional Status Date Assessment Result Facility 07-06-2022 Functional Status Door open, Room check performed [facility] 07-06-2022 Functional Status [facility] 07-06-2022 Functional Status [facility] 07-05-2022 Functional Status [facility] 07-05-2022 Functional Status Independent [facility] 07-05-2022 Functional Status NPO Status Maintained A [facility] 07-05-2022 Functional Status [facility] 07-05-2022 Functional Status [facility] 07-04-2022 Functional Status Hospital bed [facility] 07-04-2022 Functional Status [facility] 07-04-2022 Functional Status Dinner Percent [address] [facility] 07-04-2022 Functional Status Driving, Work [facility] 07-04-2022 Functional Status SCD On/Re-appl ied bilateral knee high [facility] 07-03-2022 Functional Status Patient refused [facility] 07-03-2022 Functional Status Sensory Deficits None A [facility] 03-05-2022 Functional status Ambulates;Up ad madisyn [facility] Work Phone: Mental Status Date Assessment Result Facility 07-06-2022 Mental Status Oriented x 4 [facility] 07-06-2022 Mental Status [facility] 07-05-2022 Mental Status [facility] 03-05-2022 Cognitive function Voice/Name [facility] Work Phone: Clinical Notes 07-03-2022 to 06-10-2023 Laboratory Note Date & Type Note Facility 06-10-2023 Evaluation + Plan note Future Scheduled TestsLactate Dehydrogenase 06/10/23Lactate Dehydrogenase 12/09/22Complete Blood Count 06/10/23Complete Blood Count 12/09/22Complete Metabolic Panel 06/10/23Complete Metabolic Panel 12/09/22 [facility] 07-06-2022 Discharge summary Date of Service 07/06/2022 Discharge Diagnosis Syncope Transient ischemic attack Patent Foramen ovale Episode of slurred speech Elevated CPK Hypertension Hyperlipidemia Triglyceridemia Diabetes mellitus - qmh-vgxmfra-bonjedgyh Recent statin related myopathy Hospital Course Patient is 42-year-old male with past medical history significant for ide-dcpzvgj-kocgguyxc diabetes mellitus, hypertension, KAITLIN on CPAP and hyperlipidemia who initially presented to [facility] ER with chief complaint of an episode of severe headache and syncope lasting for 10-15 seconds associated with slurred speech for a short amount of time. In the ER he was hemodynamically stable. NIH stroke score documented at 0. Blood work was unremarkable except elevated glucose at 143. UA negative for infection positive for glucosuria. Influenza/COVID negative. Initial CT scan head did not show any acute CVA/hemorrhage or mass-effect. CTA PE protocol did not show any evidence of PE or thoracic aneurysm or dissection. EKG showed normal sinus rhythm. Patient was given aspirin 325 mg x 1 and was evaluated by teleneurology and was subsequently transferred to [facility] for further evaluation. At [facility], patient underwent extensive work-up including MRI brain, EEG, CTA head/neck and transthoracic echocardiogram. 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 Patient was continued on aspirin therapy. Telemetry did not show any evidence of underlying arrhythmia. After discussing with neurology, interventional cardiology was consulted and it was recommended outpatient follow-up with a decision about PFO closure depending on the 30-day CardioNet monitor results. Patient symptoms have resolved completely and he remained afebrile and hemodynamically stable. During his hospitalization, patient's lipid profile was significant for elevated cholesterol and triglycerides above 800 however due to recent statin induced myopathy & elevated CPK, statin was not started. Lower extremity duplex were negative for DVT. His CPK continues to trend downward and it was decided to start patient on fenofibrate on discharge with close outpatient follow-up given he has history of triglyceride induced pancreatitis. Patient was evaluated by PT/OT and recommended no home-going needs. Patient was subsequently discharged home in stable condition and will follow up with his primary care physician, his data processing consultant, interventional cardiology and [facility]. Follow-up CMP/CPK was also ordered for outpatient and patient will follow up with his primary care physician for the results. Patient will need repeat imaging to follow-up on his cervical and mediastinal adenopathy as outpatient. Plan was discussed with patient as well as at bedside. They verbalized understanding Allergies NKA Procedures LUIS Consults Consult to Physician - Ordered -- 07/03/22 12:52:00 HIRAM, SUKHDEEP SANDERS MD, Routine, Sudden loss of consciousness headache Consult to Physician - Ordered -- 07/04/22 9:32:00 ALEXANDRIA GANDHI AKBAR MD, Routine, Syncopal patient, filling defect left atria noted on CTA neck, TTE pending Consult to Physician - Ordered -- 07/05/22 16:13:00 MARIAH GANDHI SHARAN MD, Routine, LUIS +PFO Imaging Results and Diagnostics CT Angiography Neck w/ Contrast Result Date: July 03, 2022 Verified By: PETE NEVAREZ MD CLINICAL STATEMENT: IMPRESSION: 1. No large vessel occlusion.2. No significant ICA stenosis.3. Chronic appearing right maxillary odontogenic infection.4. Right cervical and superior mediastinal adenopathy may be reactive orneoplastic.5. Filling defect in the left atrium and left atrial appendage may beartifact or thrombus but is suboptimally assessed. CT Angiography Head w/ Contrast Result Date: July 03, 2022 Verified By: PETE NEVAREZ MD CLINICAL STATEMENT: IMPRESSION: 1. No large vessel occlusion.2. No significant ICA stenosis.3. Chronic appearing right maxillary odontogenic infection.4. Right cervical and superior mediastinal adenopathy may be reactive orneoplastic.5. Filling defect in the left atrium and left atrial appendage may beartifact or thrombus but is suboptimally assessed. MRI Brain w/o Contrast Result Date: July 03, 2022 Verified By: JOHN CLARK MD CLINICAL STATEMENT: IMPRESSION: No acute intracranial hemorrhage or evidence of acute ischemia. I have personally reviewed the images of this examination and agree with the resident's findings and interpretation. Physical Exam Vitals and Measurements T: 36.6 C (Oral) TMIN: 36.5 C (Oral) TMAX: 36.6 C (Oral) HR: 78(Apical) RR: 18 BP: 143/87 SpO2: 96% Weight Dosing Weight: 143.1 kg (07/03/22) General: Patient is not in acute distress Neck: Supple, No JVD HEENT: Normocephalic, atraumatic obese, Cardiac: Regular rate and rhythm, S1 and S2 present, no murmurs, rubs, or gallops appreciated Lungs: Clear to auscultation bilaterally, no wheezes, rhonchi, or rales appreciated Abdomen: Obese, bowel sounds audible, abdomen is soft, nontender, non-distended, no rigidity or rebound tenderness noticed Musculoskeletal: Strength intact bilaterally in upper and lower extremities, preserved range of motion Extremities: No clubbing or cyanosis, pitting edema Skin: Warm, well perfused, no bruises Neurological: Alert and orientated x3, cranial nerves II-XII intact, No gross focal neurological deficits Code Status Full code Admission Date 07/03/2022 Discharge Date 07/06/2022 Patient Instructions Please continue take your medication as prescribed. You are being started on fenofibrate for your elevated triglycerides. Please make sure to check your blood work done to follow-up on your CPK and liver function test and follow-up with your primary care physician. You will receive CardioNet monitor and mail that you are supposed to wear for 30 days to look for any underlying arrhythmia. Please follow-up with your primary care physician and cardiology for results. Please follow-up with your primary care physician, data processing consultant, interventional cardiology Dr. Suárez. Please get your blood work done to follow-up on your CPK level. Please follow up with [facility]. Please keep yourself hydrated. Please follow-up with your primary care physician to follow-up on cervical and mediastinal adenopathy. If your symptoms worsen, call your PCP or go to nearest ER. Medications New Prescription aspirin (aspirin 81 mg oral tablet, chewable)1 tab(s) by mouth once a day with a meal. Refills: 0. fenofibrate (fenofibrate 48 mg oral tablet)1 tab(s) by mouth once a day with a meal for 30 Days. Refills: 0. Unchanged empagliflozin (Jardiance 25 mg oral tablet)1 tab(s) by mouth once a day (in the morning). metFORMIN (MetFORMIN (Eqv-Glumetza) 500 mg oral tablet, EXTENDED RELEASE)2 tab(s) by mouth two (2) times a day. metoprolol (metoprolol succinate 25 mg oral TABLET extended release)1 tab(s) by mouth once a day. Do not crush or chew (controlled release). Follow Up Follow Up with DARLYN DORSEY MD When In 2 weeks Why: Please call the office to schedule a follow up appointment Where: [address] [place] [address]- [facility] When In 3 weeks Where: Follow Up with FRANCISCO JAVIER PINK MD When In 3 weeks Where: [address] [facility] [place] [address]- [phone] Follow Up with VEDA FUNES MD, [facility] When Within 3-7 days Why: Hypertriglycerdemia Where: [address], [place] [address]- [phone] Follow Up with ARTI PARADA PA-C When Within 1-2 days Where: [address] [place], [place] [id number] [phone] Follow Up Appointments No qualifying data available. Follow Up Labs/Studies Discharge Labs Discharge Outpatient Labwork - Ordered -- CMP, CPK, Started on Fenofibrate for hypertriglyceridemia, follow-up within: 3-5 days, Results Notify to: ARTI PARADA PA-C, 07/06/22 9:16:00 EST Discharge Studies No Follow-up Studies Discharge Diet Discharge Diet - Ordered -- Type of Diet: Regular, 07/06/22 9:16:00 EST Discharge Activity Discharge Activity - Ordered -- Activity As Tolerated, 07/06/22 9:16:00 EST Condition on Discharge Fair Discharge Disposition Home Information Provided To Time Spent >30 minutes with >50% of the time spent counseling patient and/or coordinating care. Discussed plan of care with patient and nursing. Digitally Signed by BROOKS CORADO MD on 07/06/2022 05:54 PM [facility] 07-06-2022 Hospital Discharge instructions Patient Education 07/06/2022 09:46:34 Syncope, Yest-qt-Nqsb Syncope Syncope is when you pass out (faint) for a short time. It is caused by a sudden decrease in blood flow to the brain. Signs that you may be about to pass out include: Feeling dizzy or light-headed. Feeling sick to your stomach (nauseous). Seeing all white or all black. Having cold, clammy skin. If you pass out, get help right away. Call your local emergency services (911 in the [place] Do not drive yourself to the hospital. Follow these instructions at home: Watch for any changes in your symptoms. Take these actions to stay safe and help with your symptoms: Lifestyle Do not drive, use machinery, or play sports until your doctor says it is okay. Do not drink alcohol. Do not use any products that contain nicotine or tobacco, such as cigarettes and e-cigarettes. If you need help quitting, ask your doctor. Drink enough fluid to keep your pee (urine) pale yellow. General instructions Take zlgz-fpe-ergwlyn and prescription medicines only as told by your doctor. If you are taking blood pressure or heart medicine, sit up and stand up slowly. Spend a few minutes getting ready to sit and then stand. This can help you feel less dizzy. Have someone stay with you until you feel stable. If you start to feel like you might pass out, lie down right away and raise (elevate) your feet above the level of your heart. Breathe deeply and steadily. Wait until all of the symptoms are gone. Keep all follow-up visits as told by your doctor. This is important. Get help right away if: You have a very bad headache. You pass out once or more than once. You have pain in your chest, belly, or back. You have a very fast or uneven heartbeat (palpitations). It hurts to breathe. You are bleeding from your mouth or your bottom (rectum). You have black or tarry poop (stool). You have jerky movements that you cannot control (seizure). You are confused. You have trouble walking. You are very weak. You have vision problems. These symptoms may be an emergency. Do not wait to see if the symptoms will go away. Get medical help right away. Call your local emergency services (911 in the [place] Do not drive yourself to the hospital. Summary Syncope is when you pass out (faint) for a short time. It is caused by a sudden decrease in blood flow to the brain. Signs that you may be about to faint include feeling dizzy, light-headed, or sick to your stomach, seeing all white or all black, or having cold, clammy skin. If you start to feel like you might pass out, lie down right away and raise (elevate) your feet above the level of your heart. Breathe deeply and steadily. Wait until all of the symptoms are gone. This information is not intended to replace advice given to you by your health care provider. Make sure you discuss any questions you have with your health care provider. Document Released: 12/26/2008 Document Revised: 08/22/2018 Document Reviewed: 08/22/2018 [employer]™ Patient Education 2020 [employer]ear. Follow Up Care 07/03/2022 10:30:18 With:DARLYN DORSEY MD Address: [address] [place] [address]- When:Within 2 Week(s) Comments:Please call the office to schedule a follow up appointment With:[facility] Address: When:Within 3 Week(s) With:FRANCISCO JAVIER PINK MD Address: [address] [facility] [place] [address] [phone] When:Within 3 Week(s) With:VEDA FUNES MD, [facility] Address: [address], [place] [phone] When:3-7 days Comments:Hypertriglycerdemia With:ARTI PARADA PA-C Address: [address] [place] [address] [phone] When:1-2 days [facility] 07-06-2022 Cardiology Consult note Date of Service 07/06/2022 Reason for Consultation Evaluation for PFO closure Referring Physician Dr. Corado History of Present Illness This is a 42-year-old gentleman with history of diabetes, hypertension, dyslipidemia and obesity is admitted to the hospital with TIA-like symptoms. Structural heart has been consulted for PFO closure given recent diagnosis of PFO. He has had a an extensive work-up and working diagnosis right now is probable TIA. MRI is negative for acute strokes. Patient states his symptoms improved significantly and is close to baseline. He had syncopal episode with change in mental status and speech difficulties during his acute episode last week. Review of Systems A complete thorough review of system was done and was found to be negative except for the complaints mentioned above. Physical Exam Vitals and Measurements T: 36.6 C (Oral) TMIN: 36.5 C (Oral) TMAX: 36.6 C (Oral) HR: 78(Apical) RR: 18 BP: 143/87 SpO2: 96% Weight Dosing Weight: 143.1 kg (07/03/22) HEAD AND NECK: Atraumatic, normocephalic. Pupils equal, round, and reactive to light and accommodation. NECK: Supple. No significant JVP elevation CARDIAC: S1 S2 normal, No murmurs rubs or gallops RESPIRATORY: Bilateral AE equal, Clear to auscultation ABDOMEN: Soft, bowel sounds present, nontender. EXTREMITIES: No pedal edema. Normal pedal pulses. CENTRAL NERVOUS SYSTEM: Alert and oriented x3. No focal neurologic deficits. PSYCHIATRIC - Normal mood. Lab Results 07/06 05:31 Glucose Level: 138 H Sodium Level: 135 L Potassium Level: 4.2 BUN: 14.0 Creatinine Lvl (s): 0.70 07/05 06:17 WBC: 4.9 Hgb: 15.9 Hct: 45.7 Platelet: 227 Neutrophil %: 54.2 Glucose Level: 149 H Sodium Level: 135 L Potassium Level: 4.1 BUN: 16.0 Creatinine Lvl (s): 0.65 Imaging Results and Diagnostics T images reviewed personally by me. EKG Reviewed Assessment/Plan 1. TIA: Currently patient does not have documented CVA based on MRI. He has multiple risk factors for TIA/CVA including diabetes, hypertension, dyslipidemia. Patient's rope score is four-point suggesting 38% chance TIA could be secondary to PFO. MRI was negative for CVA. PFO closure in the setting of MRI negative neurological events is considered off label. He also has multiple risk factors such as diabetes, hypertension and dyslipidemia. We will have a high threshold for PFO closure. At this time we will strongly suggest medical therapy with antiplatelets. We will follow patient in the office with a 30-day monitor. If he has a second neurological insult, will strongly consider PFO closure. This was discussed with patient. He understands and agrees to the plan. Thank you for consulting us to taking care of Mr. Kaplan. Plan is discussed with primary team and primary cardiology as well. We will follow in the outpatient setting with 30-day monitor. Final plans based on 30-day monitor. Plan discussed with patient and he agrees to the above plan. Problem List/Past Medical History Ongoing No qualifying data Historical No qualifying data Procedure/Surgical History No qualifying data available. Medications Inpatient aspirin, 81 mg= 1 tab(s), Oral, qDayM fenofibrate 48 mg oral tablet, 48 mg= 1 tab(s), Oral, qDayM HumaLOG 100 units/mL subcutaneous solution, Give 0-5 units/dose, Subcutaneous, TIDAC metoprolol succinate 25 mg oral TABLET extended release, 25 mg= 1 tab(s), Oral, qDay NS 1,000 mL, 1000 mL, Intravenous Home aspirin 81 mg oral tablet, chewable, 81 mg= 1 tab(s), Oral, qDayM fenofibrate 48 mg oral tablet, 48 mg= 1 tab(s), Oral, qDayM Jardiance 25 mg oral tablet, 25 mg= 1 tab(s), Oral, qAM MetFORMIN (Eqv-Glumetza) 500 mg oral tablet, EXTENDED RELEASE, 1000 mg= 2 tab(s), Oral, BID metoprolol succinate 25 mg oral TABLET extended release, 25 mg= 1 tab(s), Oral, qDay Allergies NKA Social History Denies excessive alcohol abuse or drug use. Family History Denies family history of premature CAD or CVA. Immunizations No qualifying data available. Digitally Signed by FRANCISCO JAVIER PINK MD on 07/06/2022 10:58 AM [facility] 07-06-2022 Note Discharge Instructions Thank you for allowing [facility] to assist you with your healthcare needs. The following is important discharge information regarding your hospital visit. Your Care Team ARTI PARADA PA-C Your Diagnosis Syncope What to do next Instructions From Your Doctor Please continue take your medication as prescribed. You are being started on fenofibrate for your elevated triglycerides. Please make sure to check your blood work done to follow-up on your CPK and liver function test and follow-up with your primary care physician. You will receive CardioNet monitor and mail that you are supposed to wear for 30 days to look for any underlying arrhythmia. Please follow-up with your primary care physician and cardiology for results. Please follow-up with your primary care physician, data processing consultant, interventional cardiology Dr. Suárez. Please get your blood work done to follow-up on your CPK level. Please follow up with [facility]. Please keep yourself hydrated. Please follow-up with your primary care physician to follow-up on cervical and mediastinal adenopathy. If your symptoms worsen, call your PCP or go to nearest ER. Follow Up Appointments Follow Up with [facility] When In 3 weeks Where: Follow Up with DARLYN DORSEY MD When In 2 weeks Where: [address] [place] [address]- Follow Up with FRANCISCO JAVIER PINK MD When In 3 weeks Where: [address] [facility] [place] [address] [phone] Follow Up with VEDA FUNES MD, [facility] When Within 3-7 days Why: Hypertriglycerdemia Where: [address], [place] [address] [phone] Follow Up with ARTI PARADA PA-C When Within 1-2 days Where: [address] [place] [address] [phone] The Following Activity and Diet Have Been Ordered for You Discharge Activity - Ordered -- Activity As Tolerated, 07/06/22 9:16:00 EST Discharge Diet - Ordered -- Type of Diet: Regular, 07/06/22 9:16:00 EST The Following Equipment Has Been Ordered for You No qualifying data available. The Following Treatments Have Been Ordered for You Discharge Labs Discharge Outpatient Labwork - Ordered -- CMP, CPK, Started on Fenofibrate for hypertriglyceridemia, follow-up within: 3-5 days, Results Notify to: ARTI PARADA PA-C, 07/06/22 9:16:00 EST Discharge Radiology No qualifying data available. Other Therapies No qualifying data available. Post Acute Orders No qualifying data available. Someone Will Contact You Regarding These Home Health Referrals No home referrals have been ordered for you. No one will call you. Allergies NKA Medications Please ask your primary doctor or pharmacist before taking any other medication not listed, including over the counter drugs, herbal medications, vitamins and or supplements as they may interact with your home medications. What How Much When Instructions Last Dose New aspirin (aspirin 81 mg oral tablet, chewable) 1 tab(s) by mouth Once a day with a meal Pickup at [facility] 1724 New fenofibrate (fenofibrate 48 mg oral tablet) 1 tab(s) by mouth Once a day with a meal Duration: 30 Days Pickup at [facility] 1724 Unchanged empagliflozin (Jardiance 25 mg oral tablet) 1 tab(s) by mouth Once a day (in the morning) Unchanged metFORMIN (MetFORMIN (Eqv-Glumetza) 500 mg oral tablet, EXTENDED RELEASE) 2 tab(s) by mouth Two (2) times a day Unchanged metoprolol (metoprolol succinate 25 mg oral TABLET extended release) 1 tab(s) by mouth Once a day Do not crush or chew (controlled release) Pharmacy Information [facility] 1724: [address] [place], [place] [phone] Please take this list to your next doctor s visit. Bring all medications you take, including over the counter medications, herbals and other supplements with you to your doctor s visit. Patients and families are reminded to discard old lists and to update any records with all medication providers or retail pharmacies. Education Materials Syncope Syncope is when you pass out (faint) for a short time. It is caused by a sudden decrease in blood flow to the brain. Signs that you may be about to pass out include: Feeling dizzy or light-headed. Feeling sick to your stomach (nauseous). Seeing all white or all black. Having cold, clammy skin. If you pass out, get help right away. Call your local emergency services (911 in the [place] Do not drive yourself to the hospital. Follow these instructions at home: Watch for any changes in your symptoms. Take these actions to stay safe and help with your symptoms: Lifestyle Do not drive, use machinery, or play sports until your doctor says it is okay. Do not drink alcohol. Do not use any products that contain nicotine or tobacco, such as cigarettes and e-cigarettes. If you need help quitting, ask your doctor. Drink enough fluid to keep your pee (urine) pale yellow. General instructions Take iwce-exr-khzorov and prescription medicines only as told by your doctor. If you are taking blood pressure or heart medicine, sit up and stand up slowly. Spend a few minutes getting ready to sit and then stand. This can help you feel less dizzy. Have someone stay with you until you feel stable. If you start to feel like you might pass out, lie down right away and raise (elevate) your feet above the level of your heart. Breathe deeply and steadily. Wait until all of the symptoms are gone. Keep all follow-up visits as told by your doctor. This is important. Get help right away if: You have a very bad headache. You pass out once or more than once. You have pain in your chest, belly, or back. You have a very fast or uneven heartbeat (palpitations). It hurts to breathe. You are bleeding from your mouth or your bottom (rectum). You have black or tarry poop (stool). You have jerky movements that you cannot control (seizure). You are confused. You have trouble walking. You are very weak. You have vision problems. These symptoms may be an emergency. Do not wait to see if the symptoms will go away. Get medical help right away. Call your local emergency services (911 in the [place] Do not drive yourself to the hospital. Summary Syncope is when you pass out (faint) for a short time. It is caused by a sudden decrease in blood flow to the brain. Signs that you may be about to faint include feeling dizzy, light-headed, or sick to your stomach, seeing all white or all black, or having cold, clammy skin. If you start to feel like you might pass out, lie down right away and raise (elevate) your feet above the level of your heart. Breathe deeply and steadily. Wait until all of the symptoms are gone. This information is not intended to replace advice given to you by your health care provider. Make sure you discuss any questions you have with your health care provider. Document Released: 12/26/2008 Document Revised: 08/22/2018 Document Reviewed: 08/22/2018 Elsevier Patient Education 2020 [employer] Additional Information VACCINATE! IT SAVES LIVES! Members of the community who have not yet received the COVID-19 vaccine and would like to receive it can visit one of [facility] vaccine clinics. There are many vaccine clinic locations within the [facility]. For locations and available times, please visit [email or web address] .[email or web address] It is important to note that some COVID mobile vaccine clinics are held outdoors and may be canceled in rainy or stormy conditions. To learn more about pediatric vaccinations (ages 5-11), we invite you to visit the [facility] webpage. [email or web address] To learn more about the COVID-19 vaccine, we invite you to visit the [employer] website for a list of frequently asked questions. [email or web address] [facility] Patient Portal Access Instructions: Stay connected with your healthcare team and access your personal medical information anytime with the [facility] Patient Portal.If you would like a full copy of your medical records, please contact the [facility] Medical Records Department, Monday through Monday between 8a.m. and 4:30p.m. Please follow the directions below to access the portal: 1.Access the email account you provided upon registration to the hospital.2.Look for an invitation email from [facility].3.Open the email and access the invitation link: Accept Invitation to [facility]4.Fill in the required walden to create your account. Sign into [email or web address] with your username and password that you created in the above steps to stay up to date. You can then view a summary of results, a summary of your visits, and the ability to download your summaries to your computer or send the information securely to a physician. Remember that your healthcare information is confidential, so carefully consider who you will allow to register on the [facility] Patient Portal for access to your information. You can also access the [facility] Patient Portal on the [employer] perla. Simply click on Health Records under Health Data and then click on the [employer] logo. HOW TO SAFELY DISPOSE OF PRESCRIPTION MEDICATIONS Please use one of the following methods to safely dispose of your unused medications. 1.Use a drug disposal kit: the drug disposal pouch allows you to safely discard your old and unused drugs. Ask your nurse to give you one when you are discharged.2.Visit a local take-back location: Many local pharmacies and police departments have programs that collect old and unwanted prescription drugs. Call your local pharmacy or go to http://[employer].Rockerbox/7D1Mp5k to find one close to you.3.Make use of household items: Use cat litter or old coffee grounds to dispose medications if other options are not available. Mix your drugs with these household products, seal them in an airtight container and throw it into the garbage. Call [facility]: [phone] to be sure your drugs can be disposed of in this way. Some medicines may require a different approach.4.Never flush your medications down the toilet. IF YOU HAVE BEEN PRESCRIBED AN OPIOID FOR PAIN If you have been prescribed an opioid (such as hydrocodone, oxycodone or morphine), it is critical to understand the possible side effects and risks of opioid pain medications. Even when taken as directed, opioids can have several side effects including: Tolerance, meaning you might need to take more of a medication for the same pain relief. Nausea, vomiting and/or constipation. Sleepiness, dizziness, dry mouth, confusion, depression or itching. Physical dependence, meaning you have withdrawal symptoms when a medication is stopped, can develop within a few days. KNOW YOUR RESPONSIBILITIES It is important to know exactly how much and how often to take the opioid pain medications you are prescribed. Never take opioids in higher amounts or more often than prescribed. Do not combine opioids with alcohol or other drugs that cause drowsiness, such as benzodiazepines, also known as benzos, including diazepam and alprazolam, muscle relaxants or sleep aids. Never sell or share prescription opioids. This is illegal. Store opioids in a secure place and out of reach of others (including children, family, friends and visitors). The last page of this document has been signed and retained as a CHART COPY. Signatures Patient Education Materials Syncope, Wzyz-mj-Udxi Medication Leaflets My discharge plan and instructions have been reviewed and explained to me and IROSAURA ANTHONY A understand my current condition and have read and understand these discharge instructions. I have received a written copy of the plan/instructions. If I have questions, I am aware that I should contact my doctor. 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 In ED patient was afebrile BP 125/87, NIH stroke score documented as 0, CBC-within normal limits, metabolic panel remarkable only for glucose 143 UA negative for infection, + glycosuria negative for protein, influenza/COVID negative, CT head no evidence of acute CVA no hemorrhage or mass-effect, CTA PE protocol-no evidence of PE no evidence of thoracic aneurysm or dissection no infiltrates no pleural effusions, EKG normal sinus rhythm no acute ST changes QTC 438, patient was given ASA 325, teleneurology was consulted recommending transfer to [place] for further work-up. Patient went for MRI which was negative for acute ischemia/mass lesion. CTA of the head and neck negative for LVO, no significant ICA stenosis, however did note cervical and superior mediastinal adenopathy and Filling defect in the left atrium and left atrial appendage. EEG negative for seizure activity. TTE currently pending. Cardiology was consulted for LUIS cardiology was consulted for LUIS for further evaluation.. Patient seen and examined today morning at bedside. No acute events reported overnight. He is currently n.p.o. for scheduled LUIS later this afternoon. His weakness/slurred speech has completely resolved. As per , he is almost back to his baseline. Denies any weakness/numbness/tingling of extremities. Denies any chest pain, shortness of breath, lightness. Objective Vitals and Measurements T: 36.6 C (Oral) TMIN: 36.4 C (Oral) TMAX: 37.0 C (Oral) HR: 84(Apical) RR: 18 BP: 118/94 SpO2: 92% Intake and Output 7AM Yesterday to 7AM Today Intake and Output (Last 24 hours) Intake Output Total Summary Total Intake 0.00 Total Output 0.00 Fluid Balance 0.00 Physical Exam General: Patient is not in acute distress Neck: Supple, No JVD HEENT: Normocephalic, atraumatic, no tonsillar exudates, moist oral mucous membranes Cardiac: Regular rate and rhythm, S1 and S2 present, no murmurs, rubs, or gallops appreciated Lungs: Clear to auscultation bilaterally, no wheezes, rhonchi, or rales appreciated Abdomen: Bowel sounds audible, abdomen is soft, nontender, non-distended, no rigidity or rebound tenderness noticed Musculoskeletal: Strength intact bilaterally in upper and lower extremities, preserved range of motion Extremities: No clubbing or cyanosis, pitting edema Skin: Warm, well perfused, no bruises Neurological: Alert and orientated x3, cranial nerves II-XII intact, No gross focal neurological deficits Weight Dosing Weight: 143.1 kg (07/03/22) Medications Medications (3) Active Scheduled: (3) aspirin 81 mg Chewable 81 mg 1 tab(s), Oral, qDayM insulin lispro 100 units/mL Soln (3 mL) Give 0-5 units/dose, Subcutaneous, TIDAC metoprolol succinate 25 mg ER tablet 25 mg 1 tab(s), Oral, qDay Continuous: (0) PRN: (0) Lab Results 07/05 06:17 WBC: 4.9 Hgb: 15.9 Hct: 45.7 Platelet: 227 Neutrophil %: 54.2 Glucose Level: 149 H Sodium Level: 135 L Potassium Level: 4.1 BUN: 16.0 Creatinine Lvl (s): 0.65 07/04 06:10 WBC: 5.6 Hgb: 16.6 Hct: 47.7 Platelet: 239 Neutrophil %: 55.8 Glucose Level: 140 H Sodium Level: 137 Potassium Level: 4.9 BUN: 13.0 Creatinine Lvl (s): 0.90 Imaging Results and Diagnostics CT Angiography Neck w/ Contrast Result Date: July 03, 2022 Verified By: PETE NEVAREZ MD CLINICAL STATEMENT: IMPRESSION: 1. No large vessel occlusion.2. No significant ICA stenosis.3. Chronic appearing right maxillary odontogenic infection.4. Right cervical and superior mediastinal adenopathy may be reactive orneoplastic.5. Filling defect in the left atrium and left atrial appendage may beartifact or thrombus but is suboptimally assessed. CT Angiography Head w/ Contrast Result Date: July 03, 2022 Verified By: PETE NEVAREZ MD CLINICAL STATEMENT: IMPRESSION: 1. No large vessel occlusion.2. No significant ICA stenosis.3. Chronic appearing right maxillary odontogenic infection.4. Right cervical and superior mediastinal adenopathy may be reactive orneoplastic.5. Filling defect in the left atrium and left atrial appendage may beartifact or thrombus but is suboptimally assessed. MRI Brain w/o Contrast Result Date: July 03, 2022 Verified By: JOHN CLARK MD CLINICAL STATEMENT: IMPRESSION: No acute intracranial hemorrhage or evidence of acute ischemia. I have personally reviewed the images of this examination and agree with the resident's findings and interpretation. EKG No qualifying data available. Assessment/Plan Syncope/slurred speech History of hypertension History of hyperlipidemia Diabetes mellitus uxw-fyjalbe-qrbsjssrs Recent statin related rhabdomyolysis Hypertriglyceridemia Cervical superior mediastinal adenopathy Plan: Patient is 42-year-old male with past medical history significant for DM type II and hyperlipidemia who initially presented with episode of loss of consciousness and slurred speech. Neurology on consultation and work-up so far was unremarkable except filling defect in left atrium concerning for cardiogenic cause of syncope. Continue aspirin and unfortunately statin therapy is on hold due to recent statin related myopathy and elevated CPK. TTE was unremarkable. Cardiology was consulted for LUIS and patient underwent transesophageal echocardiogram later this afternoon. Notified that it is positive for PFO however official report is currently pending. Discussed with neurology. We will have structural heart team evaluate the patient given LUIS findings. Hyperlipidemia TG elevated above 800. Statin is on hold due to elevated CPK and recently developed statin induced myopathy and 1 month ago when his statin was held. Repeat CPK tomorrow morning and will consider starting on low-dose fenofibrate on discharge with an intention. Diabetes mellitus type 2 continue SSI plus ADA diet Regarding cervical and mediastinal adenopathy, likely reactive versus neoplastic. Patient quit smoking 15 years ago. Never had colonoscopy. Denies any recent weight loss. Patient will need further work-up outpatient with repeat CT scan. Discussed with patient in detail. Disposition: Pending official LUIS report. Consulted structural heart team for positive PFO. Anticipate discharge hopefully by tomorrow morning if no intervention planned. Patient will need CardioNet monitor on discharge. Plan discussed with patient as well as at bedside. Answered all of their questions. Time Spent >30 minutes with >50% of the time spent counseling patient and/or coordinating care. Discussed plan of care with patient and nursing. Digitally Signed by BROOKS CORADO MD on 07/05/2022 04:27 PM [facility] 07-05-2022 Cardiology Progress note Date of Service 07/05/22 Chief Complaint Syncope RFC Filling Defect on CTA Head/Neck HPI 42-year-old man with PMH of HTN, HLD, and DM2 [facility] ED following episode of loss of consciousness. Day of arrival stated he had an episode of loss of consciousness at approximately 12 AM patient was walking to the bathroom complaining of headache. Patient suddenly collapsed to the floor patient's spouse heard patient dropped to the floor. Went into the bedroom she notes that patient had a loss of consciousness for about 10 to 15 seconds. In ED patient was afebrile BP 125/87, NIH stroke score documented as 0, CBC-within normal limits, metabolic panel remarkable only for glucose 143 UA negative for infection, + glycosuria negative for protein, influenza/COVID negative, CT head no evidence of acute CVA no hemorrhage or mass-effect, CTA PE protocol-no evidence of PE no evidence of thoracic aneurysm or dissection no infiltrates no pleural effusions, EKG normal sinus rhythm no acute ST changes QTC 438, patient was given ASA 325. Patient was then transferred to [place] for further work-up.. Patient Currently on the hospitalist service. Cardiology consulted for filling defect seen on CT scan and left atrium and left atrial appendage region. Subjective No acute events overnight No new complaints Objective Vitals and Measurements T: 36.8 C (Oral) TMIN: 36.4 C (Oral) TMAX: 37.0 C (Oral) HR: 83(Apical) RR: 18 BP: 136/84 SpO2: 95% Intake and Output 7AM Yesterday to 7AM Today Intake and Output (Last 24 hours) Intake Output Total Summary Total Intake 0.00 Total Output 0.00 Fluid Balance 0.00 Physical Exam General: AAOX3, NAD HEENT: Anicteric sclera, MMM Neck: Trachea midline, no JVD appreciated CVS: RRR, normal S1/S2, no murmurs/rubs/gallops Lung: CTAB, no wheezes/rhonchi/rales Abd: Soft, NT/ND Extrem: WWP, no LE edema Skin: Warm, Intact Neuro: AAOX3, no focal deficits Psych: Appropriate mood & affect Weight Dosing Weight: 143.1 kg (07/03/22) Medications Medications (3) Active Scheduled: (3) aspirin 81 mg Chewable 81 mg 1 tab(s), Oral, qDayM insulin lispro 100 units/mL Soln (3 mL) Give 0-5 units/dose, Subcutaneous, TIDAC metoprolol succinate 25 mg ER tablet 25 mg 1 tab(s), Oral, qDay Continuous: (0) PRN: (0) Lab Results 07/05 06:17 WBC: 4.9 Hgb: 15.9 Hct: 45.7 Platelet: 227 Neutrophil %: 54.2 Glucose Level: 149 H Sodium Level: 135 L Potassium Level: 4.1 BUN: 16.0 Creatinine Lvl (s): 0.65 07/04 06:10 WBC: 5.6 Hgb: 16.6 Hct: 47.7 Platelet: 239 Neutrophil %: 55.8 Glucose Level: 140 H Sodium Level: 137 Potassium Level: 4.9 BUN: 13.0 Creatinine Lvl (s): 0.90 Imaging Results and Diagnostics CT Angiography Neck w/ Contrast Result Date: July 03, 2022 Verified By: PETE NEVAREZ MD CLINICAL STATEMENT: IMPRESSION: 1. No large vessel occlusion.2. No significant ICA stenosis.3. Chronic appearing right maxillary odontogenic infection.4. Right cervical and superior mediastinal adenopathy may be reactive orneoplastic.5. Filling defect in the left atrium and left atrial appendage may beartifact or thrombus but is suboptimally assessed. CT Angiography Head w/ Contrast Result Date: July 03, 2022 Verified By: PETE NEVAREZ MD CLINICAL STATEMENT: IMPRESSION: 1. No large vessel occlusion.2. No significant ICA stenosis.3. Chronic appearing right maxillary odontogenic infection.4. Right cervical and superior mediastinal adenopathy may be reactive orneoplastic.5. Filling defect in the left atrium and left atrial appendage may beartifact or thrombus but is suboptimally assessed. MRI Brain w/o Contrast Result Date: July 03, 2022 Verified By: JOHN CLARK MD CLINICAL STATEMENT: IMPRESSION: No acute intracranial hemorrhage or evidence of acute ischemia. I have personally reviewed the images of this examination and agree with the resident's findings and interpretation. Transthoracic Echocardiography Study date: 07/04/2022 Study Time: 08:06 AM Summary: 1. Left ventricle: The cavity size is normal. Wall thickness is mildly increased. Systolic function is normal. The estimated ejection fraction is 60-65%. Wall motion is normal; there are no regional wall motion abnormalities. Normal diastolic function. 2. Atrial septum: Agitated saline shows no shunt. Study data: Patient unit: [facility]. Patient room number: 5629. Transthoracic echocardiography. M-mode, complete 2D, complete spectral Doppler, and color Doppler. Study status: Routine. Patient status: Outpatient. Objective: TIA. Location: Echo laboratory. Procedure: Transthoracic echocardiography was performed. Image quality was fair. 8 ml of Agitated saline was administered to identify shunting. Left ventricle: The cavity size is normal. Wall thickness is mildly increased. Systolic function is normal. The estimated ejection fraction is 60-65%. Wall motion is normal; there are no regional wall motion abnormalities. The wall mass is 167 g. The wall mass index is 61 g/m . Normal diastolic function. Ventricular septum: Thickness is normal. Left atrium: The atrium is normal in size. The volume index by biplane method is 22 ml/m . Right ventricle: The cavity size is normal. Systolic function is normal. Right atrium: The atrium is normal in size. Mitral valve: The leaflets are normal thickness. No evidence for prolapse. The pressure half-time is 109 ms. The peak E/A ratio is 0.71. Doppler: Transvalvular velocity is within the normal range. There is no evidence for stenosis. There is no regurgitation. The valve area by pressure half-time is 2.0 cm . Aortic valve: Poorly visualized. Doppler: Transvalvular velocity is within the normal range. There is no stenosis. There is no regurgitation. Tricuspid valve: The valve is structurally normal. Doppler: There is no evidence for stenosis. There is no regurgitation. Pulmonic valve: Poorly visualized. The peak systolic velocity is 0.89 m/sec. Doppler: There is no evidence for stenosis. There is no regurgitation. Aorta: Aorta: The aorta is not well visualized. Aortic root: The aortic root is normal. Systemic veins: Inferior vena cava: The IVC is normal-sized. Respirophasic diameter changes are in the normal range (> 50%). Pericardium: There is no pericardial effusion. Atrial septum: Agitated saline shows no shunt. Measurements EKG No qualifying data available. Assessment/Plan #CVA? #Filling Defect in LA/KIMBERLYN? #Syncope #Hypertension #Hyperlipidemia #Hypertriglyceridemia #Statin induced myopathy and transaminitis #Type 2 diabetes - Latest EKG reviewed - Latest imaging reviewed - Latest echocardiogram reviewed - Latest ischemic work-up reviewed Plan: - Continue aspirin 81 mg daily for possible CVA - Continue metoprolol succinate 25 - F/U LUIS - Will need a 30-day Holter monitor outpatient - Will need to follow up with primary care and watershed manager for hypertriglyceridemia Patient seen and discussed with Dr. Alexandria Simmons II, MD PGY-4 Cardiovascular Disease Fellow Digitally Signed by JOHN SIMMONS MD on 07/05/2022 11:02 AM [facility] 07-05-2022 Cardiology Progress note Date of Service 07/05/22 Chief Complaint Syncope RFC Filling Defect on CTA Head/Neck HPI 42-year-old man with PMH of HTN, HLD, and DM2 [facility] ED following episode of loss of consciousness. Day of arrival stated he had an episode of loss of consciousness at approximately 12 AM patient was walking to the bathroom complaining of headache. Patient suddenly collapsed to the floor patient's spouse heard patient dropped to the floor. Went into the bedroom she notes that patient had a loss of consciousness for about 10 to 15 seconds. In ED patient was afebrile BP 125/87, NIH stroke score documented as 0, CBC-within normal limits, metabolic panel remarkable only for glucose 143 UA negative for infection, + glycosuria negative for protein, influenza/COVID negative, CT head no evidence of acute CVA no hemorrhage or mass-effect, CTA PE protocol-no evidence of PE no evidence of thoracic aneurysm or dissection no infiltrates no pleural effusions, EKG normal sinus rhythm no acute ST changes QTC 438, patient was given ASA 325. Patient was then transferred to [place] for further work-up.. Patient Currently on the hospitalist service. Cardiology consulted for filling defect seen on CT scan and left atrium and left atrial appendage region. Subjective No acute events overnight No new complaints Objective Vitals and Measurements T: 36.8 C (Oral) TMIN: 36.4 C (Oral) TMAX: 37.0 C (Oral) HR: 83(Apical) RR: 18 BP: 136/84 SpO2: 95% Intake and Output 7AM Yesterday to 7AM Today Intake and Output (Last 24 hours) Intake Output Total Summary Total Intake 0.00 Total Output 0.00 Fluid Balance 0.00 Physical Exam General: AAOX3, NAD HEENT: Anicteric sclera, MMM Neck: Trachea midline, no JVD appreciated CVS: RRR, normal S1/S2, no murmurs/rubs/gallops Lung: CTAB, no wheezes/rhonchi/rales Abd: Soft, NT/ND Extrem: WWP, no LE edema Skin: Warm, Intact Neuro: AAOX3, no focal deficits Psych: Appropriate mood & affect Weight Dosing Weight: 143.1 kg (07/03/22) Medications Medications (3) Active Scheduled: (3) aspirin 81 mg Chewable 81 mg 1 tab(s), Oral, qDayM insulin lispro 100 units/mL Soln (3 mL) Give 0-5 units/dose, Subcutaneous, TIDAC metoprolol succinate 25 mg ER tablet 25 mg 1 tab(s), Oral, qDay Continuous: (0) PRN: (0) Lab Results 07/05 06:17 WBC: 4.9 Hgb: 15.9 Hct: 45.7 Platelet: 227 Neutrophil %: 54.2 Glucose Level: 149 H Sodium Level: 135 L Potassium Level: 4.1 BUN: 16.0 Creatinine Lvl (s): 0.65 07/04 06:10 WBC: 5.6 Hgb: 16.6 Hct: 47.7 Platelet: 239 Neutrophil %: 55.8 Glucose Level: 140 H Sodium Level: 137 Potassium Level: 4.9 BUN: 13.0 Creatinine Lvl (s): 0.90 Imaging Results and Diagnostics CT Angiography Neck w/ Contrast Result Date: July 03, 2022 Verified By: PETE NEVAREZ MD CLINICAL STATEMENT: IMPRESSION: 1. No large vessel occlusion.2. No significant ICA stenosis.3. Chronic appearing right maxillary odontogenic infection.4. Right cervical and superior mediastinal adenopathy may be reactive orneoplastic.5. Filling defect in the left atrium and left atrial appendage may beartifact or thrombus but is suboptimally assessed. CT Angiography Head w/ Contrast Result Date: July 03, 2022 Verified By: PETE NEVAREZ MD CLINICAL STATEMENT: IMPRESSION: 1. No large vessel occlusion.2. No significant ICA stenosis.3. Chronic appearing right maxillary odontogenic infection.4. Right cervical and superior mediastinal adenopathy may be reactive orneoplastic.5. Filling defect in the left atrium and left atrial appendage may beartifact or thrombus but is suboptimally assessed. MRI Brain w/o Contrast Result Date: July 03, 2022 Verified By: JOHN CLARK MD CLINICAL STATEMENT: IMPRESSION: No acute intracranial hemorrhage or evidence of acute ischemia. I have personally reviewed the images of this examination and agree with the resident's findings and interpretation. Transthoracic Echocardiography Study date: 07/04/2022 Study Time: 08:06 AM Summary: 1. Left ventricle: The cavity size is normal. Wall thickness is mildly increased. Systolic function is normal. The estimated ejection fraction is 60-65%. Wall motion is normal; there are no regional wall motion abnormalities. Normal diastolic function. 2. Atrial septum: Agitated saline shows no shunt. Study data: Patient unit: [facility]. Patient room number: 5629. Transthoracic echocardiography. M-mode, complete 2D, complete spectral Doppler, and color Doppler. Study status: Routine. Patient status: Outpatient. Objective: TIA. Location: Echo laboratory. Procedure: Transthoracic echocardiography was performed. Image quality was fair. 8 ml of Agitated saline was administered to identify shunting. Left ventricle: The cavity size is normal. Wall thickness is mildly increased. Systolic function is normal. The estimated ejection fraction is 60-65%. Wall motion is normal; there are no regional wall motion abnormalities. The wall mass is 167 g. The wall mass index is 61 g/m . Normal diastolic function. Ventricular septum: Thickness is normal. Left atrium: The atrium is normal in size. The volume index by biplane method is 22 ml/m . Right ventricle: The cavity size is normal. Systolic function is normal. Right atrium: The atrium is normal in size. Mitral valve: The leaflets are normal thickness. No evidence for prolapse. The pressure half-time is 109 ms. The peak E/A ratio is 0.71. Doppler: Transvalvular velocity is within the normal range. There is no evidence for stenosis. There is no regurgitation. The valve area by pressure half-time is 2.0 cm . Aortic valve: Poorly visualized. Doppler: Transvalvular velocity is within the normal range. There is no stenosis. There is no regurgitation. Tricuspid valve: The valve is structurally normal. Doppler: There is no evidence for stenosis. There is no regurgitation. Pulmonic valve: Poorly visualized. The peak systolic velocity is 0.89 m/sec. Doppler: There is no evidence for stenosis. There is no regurgitation. Aorta: Aorta: The aorta is not well visualized. Aortic root: The aortic root is normal. Systemic veins: Inferior vena cava: The IVC is normal-sized. Respirophasic diameter changes are in the normal range (> 50%). Pericardium: There is no pericardial effusion. Atrial septum: Agitated saline shows no shunt. Measurements EKG No qualifying data available. Assessment/Plan #CVA? #Filling Defect in LA/KIMBERLYN? #Syncope #Hypertension #Hyperlipidemia #Hypertriglyceridemia #Statin induced myopathy and transaminitis #Type 2 diabetes - Latest EKG reviewed - Latest imaging reviewed - Latest echocardiogram reviewed - Latest ischemic work-up reviewed Plan: - Continue aspirin 81 mg daily for possible CVA - Continue metoprolol succinate 25 - F/U LUIS - Will need a 30-day Holter monitor outpatient - Will need to follow up with primary care and watershed manager for hypertriglyceridemia Patient seen and discussed with Dr. Alexandria Simmons II, MD PGY-4 Cardiovascular Disease Fellow Digitally Signed by JOHN SIMMONS MD on 07/05/2022 11:02 AM [facility] [place] 07-04-2022 Cardiology Consult note Date of Service 07/04/22 Reason for Consultation Filling Defect on CTA Head/Neck HPI 42-year-old man with PMH of HTN, HLD, and DM2 [facility] ED following episode of loss of consciousness. Day of arrival stated he had an episode of loss of consciousness at approximately 12 AM patient was walking to the bathroom complaining of headache. Patient suddenly collapsed to the floor patient's spouse heard patient dropped to the floor. Went into the bedroom she notes that patient had a loss of consciousness for about 10 to 15 seconds. In ED patient was afebrile BP 125/87, NIH stroke score documented as 0, CBC-within normal limits, metabolic panel remarkable only for glucose 143 UA negative for infection, + glycosuria negative for protein, influenza/COVID negative, CT head no evidence of acute CVA no hemorrhage or mass-effect, CTA PE protocol-no evidence of PE no evidence of thoracic aneurysm or dissection no infiltrates no pleural effusions, EKG normal sinus rhythm no acute ST changes QTC 438, patient was given ASA 325. Patient was then transferred to [place] for further work-up.. Patient Currently on the hospitalist service. Cardiology consulted for filling defect seen on CT scan and left atrium and left atrial appendage region. PMH: As above PSH: Cardiac catheterization, with clean coronaries FH: Hypertension, diabetes, atrial fibrillation SH: Denies x3 Allergies: No known drug allergies Subjective No acute events overnight No new complaints Review of Systems Per HPI, Complete ROS otherwise negative Physical Exam Vitals and Measurements T: 36.6 C (Oral) TMIN: 36.4 C (Oral) TMAX: 36.8 C (Oral) HR: 86(Apical) RR: 18 BP: 131/84 SpO2: 95% HT: 188.0 cm WT: 143.1 kg BMI: 40.49 Weight Dosing Weight: 143.1 kg (07/03/22) General: AAOX3, NAD HEENT: Anicteric sclera, MMM Neck: Trachea midline, no JVD appreciated CVS: RRR, normal S1/S2, no murmurs/rubs/gallops Lung: CTAB, no wheezes/rhonchi/rales Abd: Soft, NT/ND Extrem: WWP, no LE edema Skin: Warm, Intact Neuro: AAOX3, no focal deficits Psych: Appropriate mood & affect Lab Results 07/04 06:10 WBC: 5.6 Hgb: 16.6 Hct: 47.7 Platelet: 239 Neutrophil %: 55.8 Glucose Level: 140 H Sodium Level: 137 Potassium Level: 4.9 BUN: 13.0 Creatinine Lvl (s): 0.90 07/03 12:57 WBC: 5.8 Hgb: 16.5 Hct: 47.6 Platelet: 249 Neutrophil %: 56.5 Imaging Results and Diagn[address] CT Angiography Neck w/ Contrast Result Date: July 03, 2022 Verified By: PETE NEVAREZ MD CLINICAL STATEMENT: IMPRESSION: 1. No large vessel occlusion.2. No significant ICA stenosis.3. Chronic appearing right maxillary odontogenic infection.4. Right cervical and superior mediastinal adenopathy may be reactive orneoplastic.5. Filling defect in the left atrium and left atrial appendage may beartifact or thrombus but is suboptimally assessed. CT Angiography Head w/ Contrast Result Date: July 03, 2022 Verified By: PETE NEVAREZ MD CLINICAL STATEMENT: IMPRESSION: 1. No large vessel occlusion.2. No significant ICA stenosis.3. Chronic appearing right maxillary odontogenic infection.4. Right cervical and superior mediastinal adenopathy may be reactive orneoplastic.5. Filling defect in the left atrium and left atrial appendage may beartifact or thrombus but is suboptimally assessed. MRI Brain w/o Contrast Result Date: July 03, 2022 Verified By: JOHN CLARK MD CLINICAL STATEMENT: IMPRESSION: No acute intracranial hemorrhage or evidence of acute ischemia. I have personally reviewed the images of this examination and agree with the resident's findings and interpretation. Assessment/Plan #CVA? #Filling Defect in LA/KIMBERLYN? #Syncope #Hypertension #Hyperlipidemia #Hypertriglyceridemia #Type 2 diabetes - Latest EKG reviewed - Latest imaging reviewed - Latest echocardiogram reviewed - Latest ischemic work-up reviewed Plan: - Continue aspirin 81 mg daily for possible CVA - Continue metoprolol succinate 25 - Patient will need aggressive lipid therapy when safe from medical standpoint - Follow-up transthoracic echocardiogram results - LUIS ordered by neurology we will follow-up on results, n.p.o. midnight - Will need a 30-day Holter monitor outpatient Patient seen and discussed with Dr. Alexandria Simmons II, MD PGY-4 Cardiovascular Disease Fellow Problem List/Past Medical History Ongoing No qualifying data Historical No qualifying data Procedure/Surgical History No qualifying data available. Medications Inpatient aspirin, 81 mg= 1 tab(s), Oral, qDayM HumaLOG 100 units/mL subcutaneous solution, Give 0-5 units/dose, Subcutaneous, TIDAC metoprolol succinate 25 mg oral TABLET extended release, 25 mg= 1 tab(s), Oral, qDay Home Jardiance 25 mg oral tablet, 25 mg= 1 tab(s), Oral, qAM MetFORMIN (Eqv-Glumetza) 500 mg oral tablet, EXTENDED RELEASE, 1000 mg= 2 tab(s), Oral, BID metoprolol succinate 25 mg oral TABLET extended release, 25 mg= 1 tab(s), Oral, qDay Allergies NKA Immunizations No qualifying data available. Digitally Signed by JOHN SIMMONS MD on 07/04/2022 01:40 PM Digitally Signed by JOHN SIMMONS MD on 07/04/2022 01:43 PM [facility] [place] 07-04-2022 Note Date of Service 07/04/2022 Chief Complaint Syncope Subjective 42-year-old history of hypertension hyperlipidemia recently diagnosed with diabetes mellitus ([id number]) presented to [facility] ED following episode of loss of consciousness. In ED patient was afebrile BP 125/87, NIH stroke score documented as 0, CBC-within normal limits, metabolic panel remarkable only for glucose 143 UA negative for infection, + glycosuria negative for protein, influenza/COVID negative, CT head no evidence of acute CVA no hemorrhage or mass-effect, CTA PE protocol-no evidence of PE no evidence of thoracic aneurysm or dissection no infiltrates no pleural effusions, EKG normal sinus rhythm no acute ST changes QTC 438, patient was given ASA 325, teleneurology was consulted recommending transfer to [place] for further work-up. Patient went for MRI which was negative for acute ischemia/mass lesion. CTA of the head and neck negative for LVO, no significant ICA stenosis, however did note cervical and superior mediastinal adenopathy and Filling defect in the left atrium and left atrial appendage. EEG negative for seizure activity. TTE currently pending. Cardiology was consulted for possible LUIS. Patient seen and examined Patient without acute complaint Patient without any further lightheaded or syncopal events Patient denies any URI symptoms Telemetry was reviewed without significant events no A. fib or flutter Discussed treatment plan with patient at bedside answered all questions patient endorsing understanding. Objective Vitals and Measurements T: 36.6 C (Oral) TMIN: 36.4 C (Oral) TMAX: 36.8 C (Oral) HR: 88(Apical) RR: 18 BP: 133/85 SpO2: 96% Intake and Output 7AM Yesterday to 7AM Today Intake and Output (Last 24 hours) Intake Output Total Summary Total Intake 0.00 Total Output 0.00 Fluid Balance 0.00 Physical Exam HEENT: No Pallor, No Icterus Cardiac: RRR, No murmur Lungs: CTA, good air entry Abdomen: Soft, Non tender Musculoskeletal: Muscle pain involving calves no edema symmetric Extremities: No edema, good pulses Neurological: Alert, oriented x4 strength is intact sensation intact spontaneously moving all limbs cranial nerves intact Weight Dosing Weight: 143.1 kg (07/03/22) Medications Medications (3) Active Scheduled: (3) aspirin 81 mg Chewable 81 mg 1 tab(s), Oral, qDayM insulin lispro 100 units/mL Soln (3 mL) Give 0-5 units/dose, Subcutaneous, TIDAC metoprolol succinate 25 mg ER tablet 25 mg 1 tab(s), Oral, qDay Continuous: (0) PRN: (0) Lab Results 07/04 06:10 WBC: 5.6 Hgb: 16.6 Hct: 47.7 Platelet: 239 Neutrophil %: 55.8 Glucose Level: 140 H Sodium Level: 137 Potassium Level: 4.9 BUN: 13.0 Creatinine Lvl (s): 0.90 07/03 12:57 WBC: 5.8 Hgb: 16.5 Hct: 47.6 Platelet: 249 Neutrophil %: 56.5 EKG No qualifying data available. Assessment/Plan Syncope Syncope/slurred speech History of hypertension History of hyperlipidemia Diabetes mellitus [id number] Recent statin related rhabdomyolysis Hypertriglyceridemia Cervical superior mediastinal adenopathy Plan Patient presents after a syncopal event with slurred speech. Syncopal work-up notable for filling defect in left atrium concern for cardiogenic cause for syncope Continue with ASA 81, cardiology consulted plan for LUIS Follow-up TTE with bubble A1c 6.6, f/u Lipid panel, recently exposed to statins developed statin rhabdomyolysis CPK downtrending to 300s Patient initially complaining of calf pain, lower extremity duplexes were performed negative likely due to statin myolysis Hold home oral antihyperglycemic agents continue with sliding scale diabetic diet Patient may require hematology oncology evaluation if LUIS shows thrombus given lymphadenopathy Orders: Consult to Physician Consult to Physician Time Spent Greater than 35 minutes was spent reviewing chart, placing orders developing treatment plan with greater than 50% of time spent at bedside counseling/coordinating care Digitally Signed by SUSHMA GRAF MD on 07/04/2022 02:02 PM Digitally Signed by SUSHMA GRAF MD on 07/04/2022 02:15 PM Digitally Signed by SUSHMA GRAF MD on 07/04/2022 06:09 PM [facility] [place] 07-04-2022 Note Date of Service 07/04/2022 Date Read 07/04/2022 EEG Report Indication Assess for epileptiform activity. EEG Description EEG with 10-20 lead placement system. Photic stimulation was performed. The posterior dominant rhythm was 9 Hz synchronous, symmetric, reactive. Photic stimulation produced no unexpected EEG changes. Drowsiness was identified. There is no abnormal background slowing noted. No interictal epileptiform discharges or electrographic seizures noted during the record. Artefact noted during the entire record, study limited by the same. Impression This is a normal awake and drowsy EEG. No interictal epileptiform discharges or electrographic seizures noted during the record. The lack of epileptiform activity does not conclusively rule out a seizure disorder. If clinically indicated, a repeat study with prolonged sampling may have higher sensitivity for detecting interictal discharges. Digitally Signed by ЕКАТЕРИНА ORTIZ MD on 07/04/2022 11:51 AM [facility] [place] 07-04-2022 Neurology Progress note Date of Service 07/04/2022 Chief Complaint syncope Subjective No issues overnight. Care discussed with nursing staff/patient's medical team patient denies any CHEN at present. Denies any focal deficits. MRI brain nothing acute CTA head/neck no LVO but reported to show right cervical and superior mediastinal adenopathy may be reactive or neoplastic and filling defect in the left atrium and left atrial appendage may be artifact or thrombus. EEG normal, no seizures. Objective Vitals and Measurements T: 36.6 C (Oral) TMIN: 36.4 C (Oral) TMAX: 36.8 C (Oral) HR: 86(Apical) RR: 18 BP: 131/84 SpO2: 95% Intake and Output 7AM Yesterday to 7AM Today Intake and Output (Last 24 hours) Intake Output Total Summary Total Intake 0.00 Total Output 0.00 Fluid Balance 0.00 Physical Exam General Examination: conscious, alert, oriented, AoA x3 HEENT: normocephalic, pupils BERL Heart: normal S1 S2 Lungs: Bilateral air entry present Abdomen: bowel sounds present Psychiatry: Denies Anxiety, depression or suicidal ideations at present Neuro: Conscious, alert, oriented AoA x3, CN II-XII normal, no Nystagmus, EOMI, pupils BERL, No facial sensory loss, no facial asymmetry, tongue protrudes in midline, no uvula deviation, normal shoulder shrug, Power 5/5 B/L UE and LE, tone normal all 4 extremities, No tremors, No pronator drift, Reflexes + B/S/T/K/A, Plantars B/L flexor, No cerebellar signs, Romberg s deferred, No sensory loss to light touch/temperature, normal joint/position/vibration sense, gait deferred, No frontal release signs. No involuntary movements, No NR, No Kernig s sign, No Brudzinski s sign, fundus not visualized. Weight Dosing Weight: 143.1 kg (07/03/22) Medications Medications (3) Active Scheduled: (3) aspirin 81 mg Chewable 81 mg 1 tab(s), Oral, qDayM insulin lispro 100 units/mL Soln (3 mL) Give 0-5 units/dose, Subcutaneous, TIDAC metoprolol succinate 25 mg ER tablet 25 mg 1 tab(s), Oral, qDay Continuous: (0) PRN: (0) Lab Results 07/04 06:10 WBC: 5.6 Hgb: 16.6 Hct: 47.7 Platelet: 239 Neutrophil %: 55.8 Glucose Level: 140 H Sodium Level: 137 Potassium Level: 4.9 BUN: 13.0 Creatinine Lvl (s): 0.90 07/03 12:57 WBC: 5.8 Hgb: 16.5 Hct: 47.6 Platelet: 249 Neutrophil %: 56.5 Imaging Results and [address] CT Angiography Neck w/ Contrast Result Date: July 03, 2022 Verified By: PETE NEVAREZ MD CLINICAL STATEMENT: IMPRESSION: 1. No large vessel occlusion.2. No significant ICA stenosis.3. Chronic appearing right maxillary odontogenic infection.4. Right cervical and superior mediastinal adenopathy may be reactive or neoplastic.5. Filling defect in the left atrium and left atrial appendage may beartifact or thrombus but is suboptimally assessed. CT Angiography Head w/ Contrast Result Date: July 03, 2022 Verified By: PETE NEVAREZ MD CLINICAL STATEMENT: IMPRESSION: 1. No large vessel occlusion.2. No significant ICA stenosis.3. Chronic appearing right maxillary odontogenic infection.4. Right cervical and superior mediastinal adenopathy may be reactive orneoplastic.5. Filling defect in the left atrium and left atrial appendage may beartifact or thrombus but is suboptimally assessed. MRI Brain w/o Contrast Result Date: July 03, 2022 Verified By: JOHN CLARK MD CLINICAL STATEMENT: IMPRESSION: No acute intracranial hemorrhage or evidence of acute ischemia. I have personally reviewed the images of this examination and agree with the resident's findings and interpretation. Assessment/Plan 42 yr M with PMH HTN, HLD, DM admitted with syncope. Per patient he had CHEN followed by loss of consciousness for about 10 to 15 seconds, per now she thinks he was slow to respond after the event, but did not have any speech disturbances, no witnessed seizures, no focal deficits. Impressions: Syncope possible vasovagal, r/o cardiac etiology Plan: -MRI brain nothing acute -CTA head/neck no LVO but reported to show right cervical and superior mediastinal adenopathy may be reactive or neoplastic and filling defect in the left atrium and left atrial appendage may be artifact or thrombus. -EEG normal -Labs reviewed -No indication for any AED at present. -LUIS given CTA neck results. -Defer Cardiology work up to primary medical team. Consider 30 day CardioNet -Defer evaluation of lymphadenopathy to primary medical team -GI/DVT prophylaxis -PT/OT/ST -Fall precautions -Further medical management per medical team -Patient counseled the risks and health hazards of smoking, excessive alcohol intake, marijuana/cocaine/drug abuse and patient counseled not to smoke cigarettes, drink excessive alcohol as well as not to smoke marijuana. Patient understands the same. -Follow up with Neurology in 4 weeks as outpatient -Please call with questions if any. -Thank you for allowing us to participate in patients care and management. -All questions were answered -Will follow LUIS results peripherally when done and follow up patient as needed based on the test results. Will sign off at present. Please call with questions if any in the interim. This note has been generated using [employer] dictation software. It may contain incorrect words, punctuation's and spellings that were not noted in the review of the note prior to signing. Time Spent >35 mins was spent in [id number] time and coordination of care for this patient, including but not limited to personally gathering history, examining the patient, reviewing labs and images and records, counseling patient and/or family about diagnosis and potential workup if applicable, as detailed above as well as discussing the case with patient's nurse/medical team where applicable. Digitally Signed by ЕКАТЕРИНА ORTIZ MD on 07/04/2022 11:50 AM [facility] [place] 07-04-2022 Cardiology Consult note Date of Service 07/04/22 Reason for Consultation Filling Defect on CTA Head/Neck HPI 42-year-old man with PMH of HTN, HLD, and DM2 [facility] ED following episode of loss of consciousness. Day of arrival stated he had an episode of loss of consciousness at approximately 12 AM patient was walking to the bathroom complaining of headache. Patient suddenly collapsed to the floor patient's spouse heard patient dropped to the floor. Went into the bedroom she notes that patient had a loss of consciousness for about 10 to 15 seconds. In ED patient was afebrile BP 125/87, NIH stroke score documented as 0, CBC-within normal limits, metabolic panel remarkable only for glucose 143 UA negative for infection, + glycosuria negative for protein, influenza/COVID negative, CT head no evidence of acute CVA no hemorrhage or mass-effect, CTA PE protocol-no evidence of PE no evidence of thoracic aneurysm or dissection no infiltrates no pleural effusions, EKG normal sinus rhythm no acute ST changes QTC 438, patient was given ASA 325. Patient was then transferred to [place] for further work-up.. Patient Currently on the hospitalist service. Cardiology consulted for filling defect seen on CT scan and left atrium and left atrial appendage region. PMH: As above PSH: Cardiac catheterization, with clean coronaries FH: Hypertension, diabetes, atrial fibrillation SH: Denies x3 Allergies: No known drug allergies Subjective No acute events overnight No new complaints Review of Systems Per HPI, Complete ROS otherwise negative Physical Exam Vitals and Measurements T: 36.6 C (Oral) TMIN: 36.4 C (Oral) TMAX: 36.8 C (Oral) HR: 86(Apical) RR: 18 BP: 131/84 SpO2: 95% HT: 188.0 cm WT: 143.1 kg BMI: 40.49 Weight Dosing Weight: 143.1 kg (07/03/22) General: AAOX3, NAD HEENT: Anicteric sclera, MMM Neck: Trachea midline, no JVD appreciated CVS: RRR, normal S1/S2, no murmurs/rubs/gallops Lung: CTAB, no wheezes/rhonchi/rales Abd: Soft, NT/ND Extrem: WWP, no LE edema Skin: Warm, Intact Neuro: AAOX3, no focal deficits Psych: Appropriate mood & affect Lab Results 07/04 06:10 WBC: 5.6 Hgb: 16.6 Hct: 47.7 Platelet: 239 Neutrophil %: 55.8 Glucose Level: 140 H Sodium Level: 137 Potassium Level: 4.9 BUN: 13.0 Creatinine Lvl (s): 0.90 07/03 12:57 WBC: 5.8 Hgb: 16.5 Hct: 47.6 Platelet: 249 Neutrophil %: 56.5 Imaging Results and Diagnostics CT Angiography Neck w/ Contrast Result Date: July 03, 2022 Verified By: PETE NEVAREZ MD CLINICAL STATEMENT: IMPRESSION: 1. No large vessel occlusion.2. No significant ICA stenosis.3. Chronic appearing right maxillary odontogenic infection.4. Right cervical and superior mediastinal adenopathy may be reactive orneoplastic.5. Filling defect in the left atrium and left atrial appendage may beartifact or thrombus but is suboptimally assessed. CT Angiography Head w/ Contrast Result Date: July 03, 2022 Verified By: PETE NEVAREZ MD CLINICAL STATEMENT: IMPRESSION: 1. No large vessel occlusion.2. No significant ICA stenosis.3. Chronic appearing right maxillary odontogenic infection.4. Right cervical and superior mediastinal adenopathy may be reactive orneoplastic.5. Filling defect in the left atrium and left atrial appendage may beartifact or thrombus but is suboptimally assessed. MRI Brain w/o Contrast Result Date: July 03, 2022 Verified By: JOHN CLARK MD CLINICAL STATEMENT: IMPRESSION: No acute intracranial hemorrhage or evidence of acute ischemia. I have personally reviewed the images of this examination and agree with the resident's findings and interpretation. Assessment/Plan #CVA? #Filling Defect in LA/KIMBERLYN? #Syncope #Hypertension #Hyperlipidemia #Hypertriglyceridemia #Type 2 diabetes - Latest EKG reviewed - Latest imaging reviewed - Latest echocardiogram reviewed - Latest ischemic work-up reviewed Plan: - Continue aspirin 81 mg daily for possible CVA - Continue metoprolol succinate 25 - Patient will need aggressive lipid therapy when safe from medical standpoint - Follow-up transthoracic echocardiogram results - LUIS ordered by neurology we will follow-up on results, n.p.o. midnight - Will need a 30-day Holter monitor outpatient Patient seen and discussed with Dr. Alexandria Simmons II, MD PGY-4 Cardiovascular Disease Fellow Problem List/Past Medical History Ongoing No qualifying data Historical No qualifying data Procedure/Surgical History No qualifying data available. Medications Inpatient aspirin, 81 mg= 1 tab(s), Oral, qDayM HumaLOG 100 units/mL subcutaneous solution, Give 0-5 units/dose, Subcutaneous, TIDAC metoprolol succinate 25 mg oral TABLET extended release, 25 mg= 1 tab(s), Oral, qDay Home Jardiance 25 mg oral tablet, 25 mg= 1 tab(s), Oral, qAM MetFORMIN (Eqv-Glumetza) 500 mg oral tablet, EXTENDED RELEASE, 1000 mg= 2 tab(s), Oral, BID metoprolol succinate 25 mg oral TABLET extended release, 25 mg= 1 tab(s), Oral, qDay Allergies NKA Immunizations No qualifying data available. Digitally Signed by JOHN SIMMONS MD on 07/04/2022 01:40 PM Digitally Signed by JOHN SIMMONS MD on 07/04/2022 01:43 PM [facility] [place] 07-04-2022 Note ORIGINAL EXAMINATION: CTA OF THE HEAD WITH CONTRAST; CTA OF THE NECK 07/03/2022 9:12 pm: TECHNIQUE: CTA of the head/brain was performed with the administration of intravenous contrast. Multiplanar reformatted images are provided for review. MIP images are provided for review. Automated exposure control, iterative reconstruction, and/or weight based adjustment of the mA/kV was utilized to reduce the radiation dose to as low as reasonably achievable.; CTA of the neck was performed with the administration of intravenous contrast. Multiplanar reformatted images are provided for review. MIP images are provided for review. Stenosis of the internal carotid arteries measured using NASCET criteria. Automated exposure control, iterative reconstruction, and/or weight based adjustment of the mA/kV was utilized to reduce the radiation dose to as low as reasonably achievable. COMPARISON: None. HISTORY: ORDERING SYSTEM PROVIDED HISTORY: Reason for Exam: PT HAD A CHEN W/ SYNCOPAL EPISODE FOLLOWED BY CONFUSION, SLURRED SPEECH, SLIGHT LEFT SIDED WEAKNESS AROUND 12 AM, NOW RESOLVED. NO NEURO HX. CVA work-up FINDINGS: CTA head: The there is suboptimal contrast bolus. The intracranial carotid arteries demonstrate trace atherosclerotic disease on the right and are widely patent. The origins the ophthalmic arteries are visualized and normal. The middle and anterior cerebral arteries are widely patent. An anterior communicating artery is present. The distal vertebral arteries and basilar artery are patent. Origins the superior cerebellar arteries are patent. The bilateral P1 segments are hypoplastic but there are bilateral posterior communicating arteries feeding the patent geophysicist the dural venous sinuses are not well assessed on this exam. There is a lucency involving the right maxilla destruction, likely representing odontogenic infection. Surrounding osteoneogenesis indicates this is likely chronic. There is surrounding sinus disease. Mastoid air cells are clear a partially calcified extra-axial lesion is seen over the right frontal lobe, perhaps a small meningioma CTA neck: The aortic arch is normal. No significant stenosis at the origins of the innominate artery, bilateral common carotid arteries, bilateral subclavian arteries, or bilateral vertebral arteries. There is trace atherosclerotic disease at the carotid bifurcations bilaterally without significant ICA stenosis. The bilateral external carotid arteries are patent. The vertebral arteries are patent with mild left dominance. Apparent filling defect in the left atrium and left atrial appendage may be artifact but is suboptimally assessed. A 1.5 cm right-sided lymph node is seen adjacent to the submandibular gland. There are additional borderline right cervical lymph nodes. A 1.6 cm right superior mediastinal lymph node. Spinal alignment appears maintained. Poor dentition. IMPRESSION: 1. No large vessel occlusion. 2. No significant ICA stenosis. 3. Chronic appearing right maxillary odontogenic infection. 4. Right cervical and superior mediastinal adenopathy may be reactive or neoplastic. 5. Filling defect in the left atrium and left atrial appendage may be artifact or thrombus but is suboptimally assessed. Interpreted by: Pete Nevarez MD Preliminary Report By: Pete Nevarez MD Electronically signed By Pete Nevarez MD Dictated Date: 07/04/2022 8:04:06 AM Prelim Date: 07/04/2022 8:19:05 AM Sign Date: 07/04/2022 8:19:05 AM Ordering Provider: [facility] 07-04-2022 Note ORIGINAL EXAMINATION: CTA OF THE HEAD WITH CONTRAST; CTA OF THE NECK 07/03/2022 9:12 pm: TECHNIQUE: CTA of the head/brain was performed with the administration of intravenous contrast. Multiplanar reformatted images are provided for review. MIP images are provided for review. Automated exposure control, iterative reconstruction, and/or weight based adjustment of the mA/kV was utilized to reduce the radiation dose to as low as reasonably achievable.; CTA of the neck was performed with the administration of intravenous contrast. Multiplanar reformatted images are provided for review. MIP images are provided for review. Stenosis of the internal carotid arteries measured using NASCET criteria. Automated exposure control, iterative reconstruction, and/or weight based adjustment of the mA/kV was utilized to reduce the radiation dose to as low as reasonably achievable. COMPARISON: None. HISTORY: ORDERING SYSTEM PROVIDED HISTORY: Reason for Exam: PT HAD A CHEN W/ SYNCOPAL EPISODE FOLLOWED BY CONFUSION, SLURRED SPEECH, SLIGHT LEFT SIDED WEAKNESS AROUND 12 AM, NOW RESOLVED. NO NEURO HX. CVA work-up FINDINGS: CTA head: The there is suboptimal contrast bolus. The intracranial carotid arteries demonstrate trace atherosclerotic disease on the right and are widely patent. The origins the ophthalmic arteries are visualized and normal. The middle and anterior cerebral arteries are widely patent. An anterior communicating artery is present. The distal vertebral arteries and basilar artery are patent. Origins the superior cerebellar arteries are patent. The bilateral P1 segments are hypoplastic but there are bilateral posterior communicating arteries feeding the patent geophysicist the dural venous sinuses are not well assessed on this exam. There is a lucency involving the right maxilla destruction, likely representing odontogenic infection. Surrounding osteoneogenesis indicates this is likely chronic. There is surrounding sinus disease. Mastoid air cells are clear a partially calcified extra-axial lesion is seen over the right frontal lobe, perhaps a small meningioma CTA neck: The aortic arch is normal. No significant stenosis at the origins of the innominate artery, bilateral common carotid arteries, bilateral subclavian arteries, or bilateral vertebral arteries. There is trace atherosclerotic disease at the carotid bifurcations bilaterally without significant ICA stenosis. The bilateral external carotid arteries are patent. The vertebral arteries are patent with mild left dominance. Apparent filling defect in the left atrium and left atrial appendage may be artifact but is suboptimally assessed. A 1.5 cm right-sided lymph node is seen adjacent to the submandibular gland. There are additional borderline right cervical lymph nodes. A 1.6 cm right superior mediastinal lymph node. Spinal alignment appears maintained. Poor dentition. IMPRESSION: 1. No large vessel occlusion. 2. No significant ICA stenosis. 3. Chronic appearing right maxillary odontogenic infection. 4. Right cervical and superior mediastinal adenopathy may be reactive or neoplastic. 5. Filling defect in the left atrium and left atrial appendage may be artifact or thrombus but is suboptimally assessed. Interpreted by: Pete Nevarez MD Preliminary Report By: Pete Nevarez MD Electronically signed By Pete Nevarez MD Dictated Date: 07/04/2022 8:04:06 AM Prelim Date: 07/04/2022 8:19:05 AM Sign Date: 07/04/2022 8:19:05 AM Ordering Provider: [facility] 07-03-2022 Note ORIGINAL EXAMINATION: MRI OF THE BRAIN WITHOUT CONTRAST 07/03/2022 1:42 pm TECHNIQUE: Multiplanar multisequence MRI of the brain was performed without the administration of intravenous contrast. COMPARISON: CTA head and CT brain same day HISTORY: ORDERING SYSTEM PROVIDED HISTORY: Reason for Exam: CVA work-up FINDINGS: INTRACRANIAL STRUCTURES/VENTRICLES: No evidence of acute infarct on diffusion-weighted imaging. No acute intracranial hemorrhage, mass, mass effect, or midline shift. No abnormal extra-axial fluid collection. The sellar/suprasellar regions are within normal limits. The intravascular flow voids are within normal limits, demonstrating bilateral origin of the geophysicist. The ventricles and sulci appear within normal limits. No intraparenchymal area of susceptibility artifact on gradient recalled echo imaging to suggest remote microhemorrhage. ORBITS: The visualized portion of the orbits demonstrate no acute abnormality. SINUSES: There are mucous retention cysts within the maxillary sinuses. BONES/SOFT TISSUES: The bone marrow signal intensity appears normal. The soft tissues demonstrate no acute abnormality. IMPRESSION: No acute intracranial hemorrhage or evidence of acute ischemia. I have personally reviewed the images of this examination and agree with the resident's findings and interpretation. Interpreted by: John Clark MD Preliminary Report By: Camryn Concepcion Electronically signed By John Clark MD Dictated Date: 07/03/2022 9:58:59 PM Prelim Date: 07/03/2022 10:05:06 PM Sign Date: 07/03/2022 10:24:17 PM Ordering Provider: [facility] 07-03-2022 Note ORIGINAL EXAMINATION: CTA OF THE HEAD WITH CONTRAST; CTA OF THE NECK 07/03/2022 9:12 pm: TECHNIQUE: CTA of the head/brain was performed with the administration of intravenous contrast. Multiplanar reformatted images are provided for review. MIP images are provided for review. Automated exposure control, iterative reconstruction, and/or weight based adjustment of the mA/kV was utilized to reduce the radiation dose to as low as reasonably achievable.; CTA of the neck was performed with the administration of intravenous contrast. Multiplanar reformatted images are provided for review. MIP images are provided for review. Stenosis of the internal carotid arteries measured using NASCET criteria. Automated exposure control, iterative reconstruction, and/or weight based adjustment of the mA/kV was utilized to reduce the radiation dose to as low as reasonably achievable. COMPARISON: None. HISTORY: ORDERING SYSTEM PROVIDED HISTORY: Reason for Exam: PT HAD A CHEN W/ SYNCOPAL EPISODE FOLLOWED BY CONFUSION, SLURRED SPEECH, SLIGHT LEFT SIDED WEAKNESS AROUND 12 AM, NOW RESOLVED. NO NEURO HX. CVA work-up FINDINGS: CTA head: The there is suboptimal contrast bolus. The intracranial carotid arteries demonstrate trace atherosclerotic disease on the right and are widely patent. The origins the ophthalmic arteries are visualized and normal. The middle and anterior cerebral arteries are widely patent. An anterior communicating artery is present. The distal vertebral arteries and basilar artery are patent. Origins the superior cerebellar arteries are patent. The bilateral P1 segments are hypoplastic but there are bilateral posterior communicating arteries feeding the patent geophysicist the dural venous sinuses are not well assessed on this exam. There is a lucency involving the right maxilla destruction, likely representing odontogenic infection. Surrounding osteoneogenesis indicates this is likely chronic. There is surrounding sinus disease. Mastoid air cells are clear a partially calcified extra-axial lesion is seen over the right frontal lobe, perhaps a small meningioma CTA neck: The aortic arch is normal. No significant stenosis at the origins of the innominate artery, bilateral common carotid arteries, bilateral subclavian arteries, or bilateral vertebral arteries. There is trace atherosclerotic disease at the carotid bifurcations bilaterally without significant ICA stenosis. The bilateral external carotid arteries are patent. The vertebral arteries are patent with mild left dominance. Apparent filling defect in the left atrium and left atrial appendage may be artifact but is suboptimally assessed. A 1.5 cm right-sided lymph node is seen adjacent to the submandibular gland. There are additional borderline right cervical lymph nodes. A 1.6 cm right superior mediastinal lymph node. Spinal alignment appears maintained. Poor dentition. IMPRESSION: 1. No large vessel occlusion. 2. No significant ICA stenosis. 3. Chronic appearing right maxillary odontogenic infection. 4. Right cervical and superior mediastinal adenopathy may be reactive or neoplastic. 5. Filling defect in the left atrium and left atrial appendage may be artifact or thrombus but is suboptimally assessed. Interpreted by: Pete Nevarez MD Preliminary Report By: Pete Nevarez MD Electronically signed By Pete Nevarez MD Dictated Date: 07/04/2022 8:04:06 AM Prelim Date: 07/04/2022 8:19:05 AM Sign Date: 07/04/2022 8:19:05 AM Ordering Provider: [facility] 07-03-2022 Note ORIGINAL EXAMINATION: CTA OF THE HEAD WITH CONTRAST; CTA OF THE NECK 07/03/2022 9:12 pm: TECHNIQUE: CTA of the head/brain was performed with the administration of intravenous contrast. Multiplanar reformatted images are provided for review. MIP images are provided for review. Automated exposure control, iterative reconstruction, and/or weight based adjustment of the mA/kV was utilized to reduce the radiation dose to as low as reasonably achievable.; CTA of the neck was performed with the administration of intravenous contrast. Multiplanar reformatted images are provided for review. MIP images are provided for review. Stenosis of the internal carotid arteries measured using NASCET criteria. Automated exposure control, iterative reconstruction, and/or weight based adjustment of the mA/kV was utilized to reduce the radiation dose to as low as reasonably achievable. COMPARISON: None. HISTORY: ORDERING SYSTEM PROVIDED HISTORY: Reason for Exam: PT HAD A CHEN W/ SYNCOPAL EPISODE FOLLOWED BY CONFUSION, SLURRED SPEECH, SLIGHT LEFT SIDED WEAKNESS AROUND 12 AM, NOW RESOLVED. NO NEURO HX. CVA work-up FINDINGS: CTA head: The there is suboptimal contrast bolus. The intracranial carotid arteries demonstrate trace atherosclerotic disease on the right and are widely patent. The origins the ophthalmic arteries are visualized and normal. The middle and anterior cerebral arteries are widely patent. An anterior communicating artery is present. The distal vertebral arteries and basilar artery are patent. Origins the superior cerebellar arteries are patent. The bilateral P1 segments are hypoplastic but there are bilateral posterior communicating arteries feeding the patent geophysicist the dural venous sinuses are not well assessed on this exam. There is a lucency involving the right maxilla destruction, likely representing odontogenic infection. Surrounding osteoneogenesis indicates this is likely chronic. There is surrounding sinus disease. Mastoid air cells are clear a partially calcified extra-axial lesion is seen over the right frontal lobe, perhaps a small meningioma CTA neck: The aortic arch is normal. No significant stenosis at the origins of the innominate artery, bilateral common carotid arteries, bilateral subclavian arteries, or bilateral vertebral arteries. There is trace atherosclerotic disease at the carotid bifurcations bilaterally without significant ICA stenosis. The bilateral external carotid arteries are patent. The vertebral arteries are patent with mild left dominance. Apparent filling defect in the left atrium and left atrial appendage may be artifact but is suboptimally assessed. A 1.5 cm right-sided lymph node is seen adjacent to the submandibular gland. There are additional borderline right cervical lymph nodes. A 1.6 cm right superior mediastinal lymph node. Spinal alignment appears maintained. Poor dentition. IMPRESSION: 1. No large vessel occlusion. 2. No significant ICA stenosis. 3. Chronic appearing right maxillary odontogenic infection. 4. Right cervical and superior mediastinal adenopathy may be reactive or neoplastic. 5. Filling defect in the left atrium and left atrial appendage may be artifact or thrombus but is suboptimally assessed. Interpreted by: Pete Nevarez MD Preliminary Report By: Pete Nevarez MD Electronically signed By Pete Nevarez MD Dictated Date: 07/04/2022 8:04:06 AM Prelim Date: 07/04/2022 8:19:05 AM Sign Date: 07/04/2022 8:19:05 AM Ordering Provider: SUSHMA GRAF [facility] [place] 07-03-2022 Neurology Consult note Date of Service July 03, 2022 Reason for Consultation Headache and LOC Referring Physician Dr. Graf History of Present Illness 42-year-old male who does have some long-term vascular risk factors including hypertension hyperlipidemia and diabetes. 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 He does not have any other past neurologic history. He does have occasional headaches but nothing severe. 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 Throughout the day yesterday he had a mild dull achy holoacranial headache, but nothing severe. Late last night he got up to use the restroom and his then heard a thud. She quickly found him and he was on his knees clutching the left side of his head, decreasing a bad headache, and he then slumped over and became unresponsive. It was dark and it was difficult for her to see details but she does not recall him being particularly pale or sweaty. No seizure was seen. He was completely unconscious for about 15 seconds and then woke up, but at that point was slurring his speech and seemed confused. He then gradually returned to his neurologic baseline over what was reported to be about 2 hours. He is completely amnestic to any of these events. Currently feels back to baseline. He and his do not recall there being any lateralized deficits around these events and his stroke scale on arrival to the emergency room was reported to be a 0. He does not recall having any d j vu or gustatory olfactory auras. No history of seizure. Possibly have a mild headache overnight and throughout the morning but currently he does not have any headache. He was seen at an outside hospital and had a teleneurology consult. His head CT was reported to be unrevealing. It was recommended he be transferred to [place] for further work-up, including an MRI, CTA, TTE, and EEG. Review of Systems Aside from what is mentioned in the HPI, there were no other pertinent positives in the patient's review of systems. Physical Exam Vitals and Measurements T: 36.8 C (Oral) TMIN: 36.6 C (Oral) TMAX: 36.8 C (Oral) HR: 79(Monitored) RR: 18 BP: 131/69 SpO2: 95% HT: 188.0 cm WT: 143.1 kg BMI: 40.49 Weight Dosing Weight: 143.1 kg (07/03/22) Neurologic Exam Mental Status: Orientation: oriented to person, [facility], and month Language: normal fluency, normal simple comprehension Speech: non-dysarthric Cranial Nerves: Pupils: 4mm -> 2mm bilaterally Visual [place]: full to confrontation bilaterally Fundus: not well visualized as the patient wasn't tolerating the light and having trouble fixating CN III, IV, : EOMI. No nystagmus CN V: normal light touch and temp sensation in V1, V2, V3, bilaterally. CN VII: face symmetric at rest. Facial muscle strength intact CN VIII: auditory acuity intact to bedside testing Sensation: Light touch: intact in all 4 extremities Temperature: intact in all 4 extremities Vibration: intact in all 4 extremities Motor: Muscle Bulk: No atrophy or fasciculations Muscle Tone: physiologic tone in upper and lower extremities Involuntary movements: none Pronator drift: absent Strength: LUE: 5/5 proximally, 5/5 distally RUE: 5/5 proximally, 5/5 distally LLE: 5/5 proximally, 5/5 distally RLE: 5/5 proximally, 5/5 distally Reflexes: R L B tr tr BR tr tr P tr tr Toes down down Coordination: Oeqzkf-pwnm-bwpfdw movements intact bilaterally Whhn-lfjb-pzmn movements deferred due to limited range of motion and/or pain Rapid alternating movements are performed with normal speed, normal amplitude and normal rhythm Lab Results 07/03 12:57 WBC: 5.8 Hgb: 16.5 Hct: 47.6 Platelet: 249 Neutrophil %: 56.5 Imaging Results and Diagnostics Outside head CT was reported to be unrevealing EKG Pending Assessment/Plan Transient loss of consciousness associated with a headache Transient dysarthria/encephalopathy Amnesia The event itself seems most consistent with syncope, possibly secondary to pain/using the bathroom, however the associated severe headache itself and the relatively prolonged period of neurologic symptoms/amnesia afterward is atypical. Agree with further neurologic workup (Brain MRI, CTA, TTE, EEG). Would also suggest a cardiac evaluation as seen fit. A complex migraine would also be a consideration as a diagnosis of exclusion. I will be off service tomorrow but will have one of the oncoming neurologists follow-up after testing. Please call with any questions or concerns. A total of 60 minutes was spent on this case (including reviewing the chart, taking a history, examining the patient, generating a diagnosis/plan, and discussing with the patient and his .) Problem List/Past Medical History HTN HLD DM Statin myopathy Procedure/Surgical History None Medications Inpatient aspirin, 81 mg= 1 tab(s), Oral, qDayM HumaLOG 100 units/mL subcutaneous solution, Give 0-5 units/dose, Subcutaneous, TIDAC metoprolol succinate 25 mg oral TABLET extended release, 25 mg= 1 tab(s), Oral, qDay Home Jardiance 25 mg oral tablet, 25 mg= 1 tab(s), Oral, qAM MetFORMIN (Eqv-Glumetza) 500 mg oral tablet, EXTENDED RELEASE, 1000 mg= 2 tab(s), Oral, BID metoprolol succinate 25 mg oral TABLET extended release, 25 mg= 1 tab(s), Oral, qDay Allergies NKA Social History Denies smoking excessive alcohol and drugs of abuse Family History No seizures that he was aware of Digitally Signed by SUKHDEEP SANDERS MD on 07/03/2022 03:44 PM [facility] [place] 07-03-2022 Evaluation + Plan note Extrac dmitriy from: Title:History and Physical Author:SUSHMA GRAF Date:07/03/22 Syncope Syncope/slurred speech History of hypertension History of hyperlipidemia Diabetes mellitus [id number] Recent statin related rhabdomyolysis Calf pain Plan Patient presents after a syncopal event with slurred speech. Concern for TIA versus complex migraine versus seizure versus cardiogenic syncope Patient given ASA 325 in ED we will continue with ASA 81 MRI brain, CTA head and neck TTE with bubble, monitor on telemetry A1c lipid panel ordered Patient recently treated for statin related rhabdomyolysis we will hold off on statin therapy for now, will send CPK, lower extremity duplex rule out DVT Fall precautions Hold home oral antihyperglycemic agents continue with sliding scale diabetic diet Patient presents with disc containing radiology imaging will provide to charge nurse Neurology consultation Orders: insulin lispro (HumaLOG), Start: 07/03/22 12:00:00 EST, Give 0-5 units/dose, Subcutaneous, TIDAC, 07/03/22 11:37:00 EST metoprolol, Start: 07/03/22 11:38:00 EST, Dose = 25 mg, = 1 tab(s), Oral, qDay, 07/03/22 11:38:00 EST A1C Hemoglobin Ambulate [employer] Diet Assign to Observation status Basic Metabolic Panel Blood Glucose Call Parameter Blood Glucose Call Parameter Blood Glucose Monitoring Bedside PRN Blood Glucose Monitoring Bedside PRN Blood Glucose Monitoring POC Blood Glucose Monitoring POC Code Status Communication Order (continuous) Communication Order (continuous) Communication Order (continuous) Complete Blood Count Complete Blood Count CT Angiography Head w/ Contrast CT Angiography Neck w/ Contrast Echocardiogram, Adult with Bubble Study Fall Risk Protocol Intake and Output IV Catheter Insertion/Care Lipid Profile MRI Brain w/o Contrast Prn Adapter Pulse Oximeter - Intermittent Sequential Compression Device Application Telemetry Monitoring Vital Signs [facility] 12-11-2022 Note ORIGINAL EXAMINATION: MRI OF THE BRAIN WITHOUT CONTRAST 07/03/2022 1:42 pm TECHNIQUE: Multiplanar multisequence MRI of the brain was performed without the administration of intravenous contrast. COMPARISON: CTA head and CT brain same day HISTORY: ORDERING SYSTEM PROVIDED HISTORY: Reason for Exam: CVA work-up FINDINGS: INTRACRANIAL STRUCTURES/VENTRICLES: No evidence of acute infarct on diffusion-weighted imaging. No acute intracranial hemorrhage, mass, mass effect, or midline shift. No abnormal extra-axial fluid collection. The sellar/suprasellar regions are within normal limits. The intravascular flow voids are within normal limits, demonstrating bilateral origin of the geophysicist. The ventricles and sulci appear within normal limits. No intraparenchymal area of susceptibility artifact on gradient recalled echo imaging to suggest remote microhemorrhage. ORBITS: The visualized portion of the orbits demonstrate no acute abnormality. SINUSES: There are mucous retention cysts within the maxillary sinuses. BONES/SOFT TISSUES: The bone marrow signal intensity appears normal. The soft tissues demonstrate no acute abnormality. IMPRESSION: No acute intracranial hemorrhage or evidence of acute ischemia. I have personally reviewed the images of this examination and agree with the resident's findings and interpretation. Interpreted by: John Clark MD Preliminary Report By: Camryn Concepcion Electronically signed By John Clark MD Dictated Date: 07/03/2022 9:58:59 PM Prelim Date: 07/03/2022 10:05:06 PM Sign Date: 07/03/2022 10:24:17 PM Ordering Provider: [facility]12-11-2022 History and physical note Date of Service 07/03/2022 History of Present Illness cc-syncope/loss of consciousness HPI 42-year-old history of hypertension hyperlipidemia recently diagnosed with diabetes mellitus ([id number]) presented to [facility] ED following episode of loss of consciousness. Per patient and spouse at bedside patient had episode of loss of consciousness overnight at approximately 12 AM patient was walking to the bathroom complaining of headache. Worst headache of his life. Patient suddenly collapsed to the floor patient's spouse heard patient dropped to the floor. Went into the bedroom she notes that patient had a loss of consciousness for about 10 to 15 seconds. Patient regained responsiveness however was confused had slurred speech for short amount of time. Patient eventually regained consciousness back to baseline. Patient was taken to ED for evaluation. Patient denies any memory of these events. Patient has had no history of syncope. Patient denies major he adache history. Patient denies EtOH intake drug use. Patient is currently at baseline denies chest pain shortness of breath nausea vomiting or diarrhea. Patient does complain of muscle pain involvinglower extremities of note patient was recently started on a statin and developed mild rhabdomyolysis. In ED patient was afebrile BP 125/87, NIH stroke score documented as 0, CBC- within normal limits, metabolic panel remarkable only for glucose 143 UA negative for infection, + glycosuria negative for protein, influenza/COVID negative, CT head no evidence of acute CVA no hemorrhage or mass-effect, CTA PE protocol-no evidence of PE no evidence of thoracic aneurysm or dissection no infiltrates no pleural effusions, EKG normal sinus rhythm no acute ST changes QTC 438, patient was given ASA 325, teleneurology was consulted recommending transfer to [place] for further work-up Review of Systems 14 point ROS was completed with significant findings noted above Physical Exam Vitals and Measurements T: 36.6 C (Oral) HR: 88(Apical) RR: 18 BP: 137/74 SpO2: 95% HT: 188.0 cm WT: 143.1 kg BMI: 40.49 Weight Dosing Weight: 143.1 kg (07/03/22) HEENT: No Pallor, No Icterus Cardiac: RRR, No murmur Lungs: CTA, good air entry Abdomen: Soft, Non tender Musculoskeletal: Muscle pain involving calves no edema symmetric Extremities: No edema, good pulses Neurological: Alert, oriented x4 strength is intact sensation intact spontaneously moving all limbscranial nerves intact Lab Results No 36 Hour Lab Data Assessment/Plan Syncope Syncope/slurred speech History of hypertension History of hyperlipidemia Diabetes mellitus [id number] Recent statin related rhabdomyolysis Calf pain Plan Patient presents after a syncopal event with slurred speech. Concern for TIA versus complex migraine versus seizure versus cardiogenic syncope Patient given ASA 325 in ED we will continue with ASA 81 MRI brain, CTA head and neck TTE with bubble, monitor on telemetry A1c lipid panel ordered Patient recently treated for statin related rhabdomyolysis we will hold off on statin therapy for now, will send CPK, lower extremity duplex rule out DVT Fall precautions Hold home oral antihyperglycemic agents continue with sliding scale diabetic diet Patient presents with disc containing radiology imaging will provide to charge nurse Neurology consultation Orders: insulin lispro (HumaLOG), Start: 07/03/22 12:00:00 EST, Give 0-5 units/dose, Subcutaneous, TIDAC, 07/03/22 11:37:00 EST metoprolol, Start: 07/03/22 11:38:00 EST, Dose = 25 mg, = 1 tab(s), Oral, qDay, 07/03/22 11:38:00 EST A1C Hemoglobin Ambulate [employer] Diet Assign to Observation status Basic Metabolic Panel Blood Glucose Call Parameter Blood Glucose Call Parameter Blood Glucose Monitoring Bedside PRN Blood Glucose Monitoring Bedside PRN Blood Glucose Monitoring POC Blood Glucose Monitoring POC Code Status Communication Order (continuous) Communication Order (continuous) Communication Order (continuous) Complete Blood Count Complete Blood Count CT Angiography Head w/ Contrast CT Angiography Neck w/ Contrast Echocardiogram, Adult with Bubble Study Fall Risk Protocol Intake and Output IV Catheter Insertion/Care Lipid Profile MRI Brain w/o Contrast Prn Adapter Pulse Oximeter - Intermittent Sequential Compression Device Application Telemetry Monitoring Vital Signs Problem List/Past Medical History Ongoing No qualifying data Historical No qualifying data Procedure/Surgical History No qualifying data available. Medications Home Medications (3) Active Jardiance 25 mg oral tablet 25 mg = 1 tab(s), Oral, qAM MetFORMIN (Eqv-Glumetza) 500 mg oral tablet, EXTENDED RELEASE 1,000 mg = 2 tab(s), Oral, BID metoprolol succinate 25 mg oral TABLET extended release 25 mg = 1 tab(s), Oral, qDay Allergies NKA Immunizations No qualifying data available. Code Status Code Status - Ordered -- 07/03/22 11:38:00 EST, Full Code, Constant Order Digitally Signed by SUSHMA GRAF MD on 07/03/2022 12:55 PM [facility] Diagnosis Onset Date Resolution Status Acute pancreatitis acute Hypertriglyceridemia acute [facility] Work Phone: Evaluation noteNo assessment information available [facility] Work Phone: Hospital course Narrative No data available for this section [facility] Discharge instructions No data available for this section [facility] Progress note No data available for this section [facility] Summary Purpose Family History No Family History Records Found Relationship Condition Age at Onset Recorded Date/T clyde father Cardiac disease Unknown Hypertension Unknown mother Hypertension Unknown Advance Directives No Advanced Directives Records FoundLatest Code Status on File Code Status Date Activated Date Inactivated Comments Full Code 06/25/2019 5:26 PM Full Code 06/24/2019 7:25 PM 06/25/2019 5:26 PM Full Code 06/24/2019 12:23 PM 06/24/2019 7:25 PM Advance Directive Response Recorded Date/ Time Name of Medical Power of Measuring Clerk Magda Kaplan March 03, 2022 5:00pm Living Will Yes March 03 5:00pm Power of Measuring Clerk Yes March 03 5:00pm Advance Directive Response Recorded Date/ Time Living Will Yes March 03 4:00pm Power of Measuring Clerk Yes March 03 4:00pm Hospital Course * Jimmie Schroeder MD - 06/25/2019 9:23 PM EST Hospitalist Discharge Summary Reg Kaplan : 1980 Admit date: 06/24/2019 Discharge date: 06/25/2019 Admitting Physician: Klaus Kramer MD Primary Care Physician: No primary care provider on file. Visit Status: Observation Code Status: Full Code Discharge Diagnoses: Active Problems: Elevated troponin Obesity Hypertension Resolved Problems: * No resolved hospital problems. * Procedures: left heart cath Hospital Course: Pt from home with atypical chest pain and indeterminate troponin - he was seen by cardio and taken for left heart cath which was clean - he was placed on asa and metoprolol for elevated BP - he was stable at this time for dc home and outpt follow up Consults: Cardiology Discharge Instructions: Diet: DIET CARDIAC; Activity: as tolerated Recommended Outpatient Tests: Recommended Follow-up: No primary care provider on file. in 1-2 weeks Disposition: Patient discharged in stable condition to Home. Greater than 30 minutes spent discharging the patient and coming up with patient discharge plan. Vitals: BP (!) 144/84 Pulse 78 Temp 97 F (36.1 C) (Temporal) Resp 18 Wt (!) 335 lb 14.4 oz (152.4 kg) SpO2 94% Pulse Ox: SpO2 Av.2 % Min: 94 % Max: 96 % Supplemental O2: General appearance: alert and cooperative with exam Lungs: clear to auscultation bilaterally Heart: regular rate and rhythm, S1, S2 normal, no murmur, click, rub or gallop Abdomen: soft, non-tender; bowel sounds normal; no masses, no organomegaly Extremities: extremities normal, atraumatic, no cyanosis or edema Neurologic: No obvious focal neurologic deficits. Discharge Medications: Reg Kaplan Home Medication Instructions GOLDEN:[id number] Printed on:06/25/192122 Medication Information amLODIPine-benazepril (LOTREL) 10-40 MG per capsule Take 1 capsule by mouth daily aspirin 81 MG EC tablet Take 1 tablet by mouth daily Ergocalciferol (VITAMIN D2 PO) Take 1,250 mg by mouth daily folic acid (FOLVITE) 1 MG tablet Take 1 mg by mouth daily metoprolol tartrate (LOPRESSOR) 25 MG tablet Take 1 tablet by mouth 2 times daily [place]-3 1000 MG CAPS Take 1,000 mg by mouth daily vitamin B-12 (CYANOCOBALAMIN) 500 MCG tablet Take 500 mcg by mouth daily Complexity of Follow up: [] Moderate Complexity: follow up within 7-14 calendar days (60891) [] Severe Complexity: follow up within 7 calendar days (06585) Follow up Testing, Pending results or Referrals at Transitional Care Visit: [] yes [] no Instructions to MA: Please call patient on day after discharge (must document patient contacted within 2 business days of discharge). Follow up questions for MA: 1. Did you get medications filled and taking them as instructed from discharge? 2. Are you following your discharge instructions from your hospital stay? 3. Please confirm patient is scheduled for a follow up appointment within the above time frame. Signed: Jimmie Schroeder MD 06/25/2019, 9:23 PM documented in this encounter Discharge Instructions * Discharge Instr - Activity* Jimmie Schroeder MD - 06/25/2019 10:57 AM EST As tolerated * Discharge Instr - Diet* Jimmie Schroeder MD - 06/25/2019 10:57 AM EST ? Good nutrition is important when healing from an illness, injury, or surgery. Follow any nutrition recommendations given to you during your hospital stay. ? If you were given an oral nutrition supplement while in the hospital, continue to take this supplement at home. You can take it with meals, in-between meals, and/or before bedtime. These supplements can be purchased at most local grocery stores, pharmacies, and chain super-stores. ? If you have any questions about your diet or nutrition, call the hospital and ask for the dietitian. cardiac documented in this encounter Chief Complaint and Reason for Visit Chief Complaint PANCRETITIS ACUTE PANCREATITIS, Hyperlipidemia, New DM. ACUTE PANCREATITIS ACUTE PANCREATITIS, Hyperlipidemia, New DM. Reason for Visit Acute pancreatitis Hypertriglyceridemia Chief Complaint ENLARGED LYMPH NODES Additional Source Comments (unrecognized sect ion and content) No Status Records FoundNo Status Records FoundNo Status Records FoundNo Status Records FoundNo Status Records FoundNo Status Records Found INFORMATION SOURCE (unrecogn ized section and content) DATE CREATED AUTHOR 07/25/2018 [facility] DATE CREATED AUTHOR AUTHOR'S ORGANIZ ATION 06/27/2019 [facility] DATE CREATED AUTHOR AUTHOR'S ORGANIZ ATION 07/07/2023 [facility] ([place]) DATE CREATED AUTHOR AUTHOR'S ORGANIZ ATION 09/11/2024 [facility] DATE CREATED AUTHOR AUTHOR'S ORGANIZ ATION 12/28/2024 [facility] DATE CREATED AUTHOR AUTHOR'S ORGANIZ ATION 02/25/2025 [facility] Care Team (unrecognized sect ion and content) Care Team Personnel Name: ARTI PARADA PA-C Member Role: Primary Care Physician Address: Address: [address] [place] [address] [id number] Care Teams (unrecognized sec tion and content) Team Status: Active Member Role Status Dates Dr. Donavon Monreal MD Family Provider Active Arti MIGUEL PA-C Primary Care Provider Active Team Status: Inactive Member Role Status Dates Arti MIGUEL PA-C Primary Care Provider Active Dr. Juan Huitron MD Attending Provider, Referring Pro vider Active Goals (unrecognized section and content) Goals may be documented in a n alternate section FOR RECORDS PERTAINING TO PATIENTS WHO ARE OR HAVE BEEN ENROLLED IN A CHEMICAL DEPENDENCY/SUBSTANCEABUSE PROGRAM, SOME INFORMATION MAY BE OMITTED. This clinical summary was aggregated from multiple sources. Caution should be exercised in using it in the provision of clinical care. This summary normalizes information from multiple sources, and as a consequence, information in this document may materially change the coding, format and clinical context of patient data. In addition, data may be omitted in some cases. CLINICAL DECISIONS SHOULD BE BASED ON THE PRIMARY CLINICAL RECORDS. [facility]. provides no warranty or guarantee of the accuracy or completeness of information in this document.
--- NOTE | 2025-03-06 12:54 | STRESSREP ---
Stress Test Report Exercise myocardial perfusion stress test. 45-year-old male with a history of chest pain Stress protocol: Resting EKG demonstrates normal sinus rhythm with a rate of 76 bpm resting blood pressure is 134/70 mmHg. The patient exercised according to the regular Enrrique protocol for a total duration of 8 minutes 30 sec attaining a maximum heart rate of 160 bpm which was 90% of maximum predicted heart rate; the maximum workload was 10.4 metabolic equivalents. At rest there were no ST or T wave changes noted to suggest ischemia and at peak exercise upsloping ST changes only were noted which did not meet the criteria for ischemia. No clinical angina was noted the test was terminated due to the target heart rate being achieved/fatigue. The peak blood pressure was 188/74 mmHg. Rate-pressure product was [address]. Myocardial perfusion protocol. 15 mCi of technetium 99m sestamibi was injected at rest. The patient exercised according to regular Enrrique protocol for total duration of 8-1/2 minutes and at peak exercise 32 mCi of technetium 99m sestamibi was injected stress images were obtained stress and rest images were reconstructed in comparing the short axis vertical long and horizontal long axis. Gated images were also obtained. Perfusion SPECT analysis: Review of the stress images demonstrate normal uptake of tracer noted in all areas of the myocardium. The resting images similarly demonstrate normal uptake of tracer noted in all areas of the myocardium. No areas of reversibility are noted to suggest ischemia no previous infarct was noted. Gated SPECT analysis: The gated ejection fraction is [65%]. Conclusion: Normal exercise myocardial perfusion stress test at a high workload Preserved ejection fraction.
== END | disposition home or self-care (01) ==
LOC: CVS 06:05
PROVIDERS: PCP Family Medicine; Referring Provider Nurse Practitioner Family; Visit Provider Nurse Practitioner Family
DX: R07.9 Chest pain, unspecified (principal); R06.02 Shortness of breath; R53.83 Other fatigue
CPT/HCPCS: 78452; 93017; A9500; A4216